=== PATIENT | female | born 1940 | race Hispanic/Latino ===

== ENCOUNTER 2018-10-08 08:45 | Inpatient (IN) | payer OTHER ==
[2018-10-06 11:12] VITALS: BMI 24.9
[2018-10-15] MEDS ORDERED: cefTRIAXone 1 gm 1 GM/100 ML BAG IVPB ONE (07:56)
[2018-10-15] MEDS ORDERED: Lidocaine 2% Jelly (Uro-Jet) ONE (07:57)
[2018-10-15] MEDS ORDERED: Propofol 10 mg/ml Inj (20 ML) ONE (08:29)
--- NOTE | 2018-10-15 08:54 | RAD ---
Date of service: 10/15/2018 HISTORY: cough, preop COMPARISON: 09/07/2018 FINDINGS: LUNGS: No active pulmonary disease. PLEURA: No significant pleural effusion identified, no pneumothorax apparent. CARDIOVASCULAR: No aortic atherosclerotic calcification present. Normal cardiac size. No pulmonary vascular congestion. OSSEOUS STRUCTURES: No significant abnormalities. VISUALIZED UPPER ABDOMEN: Normal. OTHER FINDINGS: None. IMPRESSION: No active disease.
[2018-10-15] MEDS ORDERED: Bupivacaine 0.25% 20 ML INJ IJ ONE (10:09)
[2018-10-15] MEDS ORDERED: Albuterol 0.083% Inhal Sol (2.5 mg/3 mL) UD INH PRN (10:37)
[2018-10-15] MEDS ORDERED: HYDROmorphone 0.5 mg/0.5 ml ISec ONE ×2 (10:40→11:04)
[2018-10-15] MEDS: HYDROmorphone 0.5 mg/0.5 ml ISec IVP PRN ×4 (10:41→11:30)
[2018-10-15] MEDS ORDERED: Lactated Ringer's 1,000 ML IV ONE ×2 (11:00→12:18)
[2018-10-15] MEDS ORDERED: Albuterol 0.083% Inhal Sol (2.5 mg/3 mL) UD ONE (11:06)
--- NOTE | 2018-10-15 11:17 | CP.PCM.CON ---
<Namita Gomez - Last Filed: 10/15/18 13:05> History of Present Illness - History of Present Illness History of Present Illness: ICU Consult Note for Dr. Chew HPI: 78 y/o female with PMHx of AAA, COPD, asthma, aortic stenosis, DM2, and HTN is currently s/p open radical nephrectomy of right kidney by Dr. Chris Nolan POD0 2/2 renal mass. Patient transferred from PACU to ICU for overnight observation due to the severity of her COPD and aortic stenosis. She has been on 6L/h oxygen mask with O2 sat at 98% in PACU. Patient currently on 3L NC O2 in ICU and denies SOB. She does not have or use home oxygen. Patient seen and examined at ICU bedside shortly upon arrival. Patient complains of constant post-surgical pain on her right side and nausea. Patient has not vomited during her hospital stay yet; surgery was just done this morning. Otherwise, she denies headache, chest pain, palpitations, SOB, vomiting, diarrhea, constipation, dysuria, abdominal pain, myalgias, fever, chills. ROS: as stated above PMHx: as stated above. Patient also had a right leg "clot" and had to be on plavix for a short amount of time a few years ago. Off plavix now. PSHx: AAA > 9 years ago, cholecystectomy, hysterectomy FHx: non-contributory SocHx: smoker since 13 years old < 1 ppd, denies EtOH and tobacco use Home meds: albuterol and advair PRN, gabapentin 300 mg daily, pepcid 20 mg PO BID, crestor 10 mg daily, metformin 1 tab daily, tradjenta 5 mg daily, HCTZ/losartan 12.5mg/50mg daily Allergies: NKDA Review of Systems - Constitutional Constitutional: As Per HPI Past Patient History - Past Medical History & Family History Past Medical History?: Yes - Past Social History Smoking Status: Current Some Days Smoker - CARDIAC Hx Cardiac Disorders: Yes Hx Hypercholesterolemia: Yes Hx Hypertension: Yes Hx Peripheral Vascular Disease: Yes Other/Comment: abd aneurysm repair 9 years ago - PULMONARY Hx Respiratory Disorders: Yes Hx Asthma: Yes Hx Bronchitis: Yes Hx Chronic Obstructive Pulmonary Disease (COPD): Yes - NEUROLOGICAL Hx Neurological Disorder: No - HEENT Hx HEENT Problems: Yes Hx Cataracts: Yes - RENAL Hx Chronic Kidney Disease: Yes Other/Comment: RENAL MASS - ENDOCRINE/METABOLIC Hx Endocrine Disorders: Yes Hx Diabetes Mellitus Type 2: Yes - HEMATOLOGICAL/ONCOLOGICAL Hx Blood Disorders: No - INTEGUMENTARY Hx Dermatological Problems: No - MUSCULOSKELETAL/RHEUMATOLOGICAL Hx Musculoskeletal Disorders: Yes Hx Arthritis: Yes - GASTROINTESTINAL Hx Gastrointestinal Disorders: Yes Hx Gall Bladder Disease: Yes - GENITOURINARY/GYNECOLOGICAL Hx Genitourinary Disorders: No - PSYCHIATRIC Hx Psychophysiologic Disorder: No Hx Substance Use: No - SURGICAL HISTORY Hx Surgeries: Yes Hx Abdominal Aortic Aneurysm Repair: Yes Hx Cataract Extraction: Yes Hx Cholecystectomy: Yes Hx Hysterectomy: Yes Other/Comment: abdominal aneurysm >9yrs ago - ANESTHESIA Hx Anesthesia: Yes Hx Anesthesia Reactions: No Hx Malignant Hyperthermia: No Has any member of the family had a problem w/ anesthesia?: No Meds Allergies/Adverse Reactions: Allergies Allergy/AdvReac Type Severity Reaction Status Date / Time No Known Allergies Allergy Verified 10/06/18 11:12 - Medications Medications: Current Medications Albuterol Sulfate (Albuterol 0.083% Inhal Robyn (2.5 Mg/3 Ml) Ud) 2.5 mg INH ONCE PRN PRN Reason: Wheezing Stop: 10/15/18 12:38 Hydromorphone HCl (Dilaudid) 0.5 mg IVP Q5M PRN PRN Reason: Pain, moderate (4-7) Stop: 10/15/18 12:37 Last Admin: 10/15/18 10:50 Dose: 0.5 mg Hydromorphone/Sodium Chloride (Dilaudid Sinker Puller) 6 mg IV Q4H PRN; Protocol PRN Reason: 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 Cefazolin Sodium/Dextrose (Ancef Iv 1 Gm Duplex) 1 gm in 50 mls @ 100 mls/hr IVPB Q8H [facility]; Protocol Ondansetron HCl (Zofran Inj) 4 mg IVP Q8H PRN PRN Reason: Nausea/Vomiting Physical Exam - Constitutional Appears: Well - Head Exam Head Exam: ATRAUMATIC, NORMAL INSPECTION, NORMOCEPHALIC - Eye Exam Eye Exam: EOMI, Normal appearance - Neck Exam Neck exam: Positive for: Normal Inspection - Respiratory Exam Respiratory Exam: Decreased Breath Sounds, NORMAL BREATHING PATTERN - Cardiovascular Exam Cardiovascular Exam: Systolic Murmur (crescendo decrescendo murmur) - GI/Abdominal Exam GI & Abdominal Exam: Normal Bowel Sounds, Soft, Tenderness (tenderness to palp ation at surgical site, with dressing on c/d/i right flank). absent: Distended, Firm, Guarding - Exam Additional comments: hand catheter on - Extremities Exam Extremities exam: Positive for: normal capillary refill, normal inspection. Negative for: calf tenderness, joint swelling, tenderness - Neurological Exam Neurological exam: Alert, Oriented x3 - Psychiatric Exam Psychiatric exam: Normal Affect, Normal Mood - Skin Skin Exam: Dry, Intact, Normal Color, Warm Results - Vital Signs Recent Vital Signs: Last Vital Signs Temp 97.4 F L 10/15/18 10:35 Pulse 85 10/15/18 10:35 Resp 24 10/15/18 10:35 BP 171/65 H 10/15/18 10:35 Pulse Ox 94 L 10/15/18 10:35 - Labs Result Diagrams: 10/15/18 11:32 Labs: Laboratory Results - last 24 hr 10/15/18 08:45 Blood Type A POSITIVE Antibody Screen Negative Assessment & Plan - Assessment and Plan (Free Text) Assessment: 78 y/o female with PMHx of AAA, COPD, asthma, aortic stenosis, DM2, and HTN is currently s/p open radical nephrectomy by Dr. Chris Nolan POD0 2/2 renal mass. Patient currently hemodynamically stable in ICU for overnight observation. Neuro -patient AAOx3 -no acute issues CV -HTN - hold home med HCTZ/losartan 12.5/50 mg for now -continue with home med crestor 10 mg daily -monitor vitals Pulm -COPD/asthma -continue with albuterol PRN -patient on 3L NC with adequate O2 sat and no SOB, monitor -target O2 > 92% -Incentive spirometer GI -continue with home pepcid 20 mg PO BID -no acute issues Renal -s/p open right radical nephrectomy POD0 -ordered stat post-op labs CBC, CMP, Mg, Phos - replete electrolytes if needed -pending ABG ordered by surgical staff -pain control - tylenol, toradol, and morphine all ordered on PRN basis. Latter for severe pain. -antiemetic zofran PRN -labs ordered for tomorrow AM 10/[address] Nolan -follow Dr. Chris Nolan, urology, recs Endo -DM2 -ISS -accuchecks [facility] -hypoglycemic protocol ID -no acute issues Heme -no acute issues DVT ppx: hold as patient is POD0 GI ppx: home med pepcid 20 mg PO BID Diet: Liquid - previously ordered case discussed with Dr. Jeevan Gomez PGY1 <Napoleon Chew - Last Filed: 10/15/18 17:07> Meds - Medications Medications: Current Medications Acetaminophen (Tylenol 325mg Tab) 650 mg PO Q6 PRN PRN Reason: Fever >100.4 F Albuterol/Ipratropium (Duoneb 3 Mg/0.5 Mg (3 Ml) Ud) 3 ml INH RQ4 PRN PRN Reason: Shortness of Breath Dextrose (Glutose 15) 0 gm PO ONCE PRN; Protocol PRN Reason: Hypoglycemia Protocol Dextrose (Dextrose 50% Inj) 0 ml IV STAT PRN; Protocol PRN Reason: Hypoglycemia Protocol Dextrose (Glutose 15) 0 gm PO ONCE PRN; Protocol PRN Reason: Hypoglycemia Protocol Famotidine (Pepcid) 20 mg PO BID [facility] Glucagon (Glucagen Diagnostic Kit) 0 mg IM STAT PRN; Protocol PRN Reason: Hypoglycemia Protocol Glucagon (Glucagen Diagnostic Kit) 0 mg IM STAT PRN; Protocol PRN Reason: Hypoglycemia Protocol Hydromorphone/Sodium Chloride (Dilaudid Sinker Puller) 6 mg IV Q4H PRN; Protocol PRN Reason: 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 Last Admin: 10/15/18 12:35 Dose: 6 mg Cefazolin Sodium/Dextrose (Ancef Iv 1 Gm Duplex) 1 gm in 50 mls @ 100 mls/hr IVPB Q8H [facility]; Protocol Dextrose (Dextrose 5% In Water 1000 Ml) 1,000 mls @ 0 mls/hr IV .Q0M PRN; Protocol PRN Reason: Hypoglycemia Protocol Lactated Ringer's (Lactated Ringer's) 1,000 mls @ 125 mls/hr IV .Q8H ONE Stop: 10/15/18 20:17 Insulin Human Regular (Novolin R) 0 unit SC [facility]; Protocol Stop: 10/17/18 23:59 Last Admin: 10/15/18 16:30 Dose: Not Given Ketorolac Tromethamine (Toradol) 15 mg IVP Q6 PRN PRN Reason: Pain, severe (8-10) Ondansetron HCl (Zofran Inj) 4 mg IVP Q8H PRN PRN Reason: Nausea/Vomiting Last Admin: 10/15/18 12:15 Dose: 4 mg Pneumococcal Polyvalent Vaccine (Pneumovax 23 Vaccine) 0.5 ml IM .ONCE ONE Stop: 10/17/18 10:01 Rosuvastatin Calcium (Crestor) 10 mg PO HS [facility] Results - Vital Signs Recent Vital Signs: Last Vital Signs Temp 97.5 F L 10/15/18 11:45 Pulse 86 10/15/18 11:30 Resp 18 10/15/18 15:27 BP 172/56 H 10/15/18 11:30 Pulse Ox 92 L 10/15/18 15:27 - Labs Result Diagrams: 10/15/18 11:32 10/15/18 13:48 Labs: Laboratory Results - last 24 hr 10/15/18 10/15/18 10/15/18 08:45 09:10 11:32 WBC 12.3 H RBC 3.79 L Hgb 11.6 Hct 34.6 MCV 91.2 MCH 30.6 MCHC 33.6 RDW 13.5 Plt Count 200 MPV 9.0 Neut % (Auto) 75.0 Lymph % (Auto) 17.7 L [place] % (Auto) 5.4 Eos % (Auto) 1.1 Baso % (Auto) 0.8 Neut # (Auto) 9.2 H Lymph # (Auto) 2.2 [place] # (Auto) 0.7 Eos # (Auto) 0.1 Baso # (Auto) 0.1 pCO2 45 pO2 446 H HCO3 24.1 ABG pH 7.35 ABG Total CO2 26.2 ABG O2 Saturation 100.2 H ABG Base Excess -1.1 Sodium Potassium Chloride Carbon Dioxide Anion Gap BUN Creatinine Est GFR ( Amer) Est GFR (Non-Af Amer) POC Glucose (mg/dL) Random Glucose Calcium Phosphorus Magnesium Total Bilirubin AST ALT Alkaline Phosphatase Total Protein Albumin Globulin Albumin/Globulin Ratio Blood Type A POSITIVE Antibody Screen Negative 10/15/18 10/15/18 10/15/18 13:18 13:48 16:10 WBC RBC Hgb Hct MCV MCH MCHC RDW Plt Count MPV Neut % (Auto) Lymph % (Auto) [place] % (Auto) Eos % (Auto) Baso % (Auto) Neut # (Auto) Lymph # (Auto) [place] # (Auto) Eos # (Auto) Baso # (Auto) pCO2 pO2 HCO3 ABG pH ABG Total CO2 ABG O2 Saturation ABG Base Excess Sodium 135 Potassium 3.4 L Chloride 103 Carbon Dioxide 26 Anion Gap 9 L BUN 20 H Creatinine 0.6 L Est GFR ( Amer) > 60 Est GFR (Non-Af Amer) > 60 POC Glucose (mg/dL) 199 H 150 H Random Glucose 196 H Calcium 7.8 L Phosphorus 4.0 Magnesium 1.6 Total Bilirubin 0.5 AST 20 ALT 26 Alkaline Phosphatase 66 Total Protein 5.9 L Albumin 3.3 L Globulin 2.6 Albumin/Globulin Ratio 1.2 Blood Type Antibody Screen Attending/Attestation - Attestation I have personally seen and examined this patient.: Yes I have fully participated in the care of the patient.: Yes I have reviewed all pertinent clinical information: Yes Notes (Text): 10/15/18 17:06 patient seen and examined 78 y/o female with PMHx of AAA, COPD, asthma, aortic stenosis, DM2, and HTN is currently s/p open radical nephrectomy for renal mass. Patient currently hemodynamically stable in ICU for overnight observation Analgesics Monitor CBC
[2018-10-15] MEDS ORDERED: (Novolin R) Insulin Human Regular 100 units/ml vial IVP ONE (11:29)
[2018-10-15] MEDS ORDERED: Glucagon Recombinant 1 mg Inj IM PRN ×2 (11:30→11:54)
[2018-10-15] MEDS ORDERED: Dextrose 50% SYRINGE Inj (50 ml) IV PRN ×2 (11:30→11:54)
[2018-10-15 11:37] LABS: BASO # 0.1 K/uL (0.0-0.2); BASO % 0.8 % (0.0-2.0); EOS # 0.1 K/uL (0.0-0.7); EOS % 1.1 % (0.0-4.0); HEMOGLOBIN 11.6 g/dL (11.0-16.0); LYMPH # 2.2 K/uL (1.0-4.3); LYMPH % 17.7 % (20.0-40.0); MEAN CELL VOLUME 91.2 fL (81.0-99.0); MEAN CORPUSCULAR HEMOGLOBIN 30.6 pg (27.0-31.0); MEAN CORPUSCULAR HGB CONC 33.6 g/dL (33.0-37.0); MONO # 0.7 K/uL (0.0-0.8); MONO % 5.4 % (0.0-10.0); NEUT # 9.2 K/uL (1.8-7.0); RBC 3.79 Mil/uL (3.80-5.20); RED CELL DISTRIBUTION WIDTH 13.5 % (11.5-14.5); WHITE BLOOD COUNT 12.3 K/uL (4.8-10.8)
[2018-10-15] MEDS ORDERED: Morphine 4 MG/ML VIAL IV PRN (12:19)
[2018-10-15 14:06] LABS: ALB/GLOB RATIO 1.2 (1.0-2.1); ALBUMIN 3.3 g/dL (3.5-5.0); ALT/SGPT 26 U/L (9-52); AST/SGOT 20 U/L (14-36); BLOOD UREA NITROGEN 20 mg/dL (7-17); CALCIUM 7.8 mg/dl (8.6-10.4); GFR NON-AFRICAN AMERICAN > 60
[2018-10-15 14:55] LABS: ARTERIAL BLOOD GAS HCO3 24.1 mmol/L (21-28); ARTERIAL BLOOD GAS O2 SAT 100.2 % (95-98); ARTERIAL BLOOD GAS PCO2 45 mm/Hg (35-45); ARTERIAL BLOOD GAS PH 7.35 (7.35-7.45); ARTERIAL BLOOD GAS PO2 446 mm/Hg (80-100); ARTERIAL BLOOD GAS TCO2 26.2 mmol/L (22-28)
[2018-10-15] MEDS ORDERED: ceFAZolin IV 1 gm in Dextrose 1 GM/50 ML BAG IVPB SCH (16:00)
[2018-10-15] MEDS: (Novolin R) Insulin Human Regular 100 units/ml vial SC SCH ×2 (16:30→22:00)
[2018-10-15] MEDS: ceFAZolin IV 1 gm in Dextrose 1 GM/50 ML BAG IVPB SCH (18:16)
[2018-10-15] MEDS: Lactated Ringer's 1,000 ML IV SCH (20:36)
--- NOTE | 2018-10-15 22:07 | CP.PCM.CON ---
History of Present Illness - History of Present Illness History of Present Illness: Postoperative consult HPI: 78-year-old female with a history of COPD, abdominal aortic aneurysm, aortic stenosis, diabetes and hypertension admitted to the intensive care unit following right total nephrectomy secondary to renal tumor. Patient was transferred to the ICU for close observation. Currently patient is on 5 L of nasal cannula, saturation is 90%, also receiving [employer]UM[employer] TE[employer]ER for pain management. Patient is complaining of not able to sleep well, right-sided flank pain noted. Somewhat distressed at night. No cough noted. No chest pain. Past medical history: As noted above Patient in the past had right leg arterial blood clot, currently on Plavix also. Surgical history included AAA repair 9 years ago Cholecystectomy, hysterectomy Family history: Noncontributory Social history: Patient is a smoker since the age of 13, still continues to smoke. Denies any alcohol. Home medications Patient using nebulizer in the house Gabapentin, Pepcid, Crestor, metformin, Tradjenta, losartan hydrochlorothiazide Allergies no known drug allergy Review of system: Patient is postoperative complaining of pain in the right flank region. Also complaining of weakness. Guevara catheter noted. No cough noted. Pain causing her some distress. Oxygen saturation is 90% On examination: Vital signs noted. Chest good air entry Regular [place] Postoperative abdomen. Drainage on the right side of the flank region noted. Extremities no pedal edema Patient labs reviewed Nonspecific. Chest x-ray showing evidence of left old healed fracture. Assessment and recommendation: 78-year-old female with a history of COPD, abdominal aortic aneurysm repair, and his aortic stenosis, diabetes and hypertension and a chronic smoker. Admitted with postoperative right nephrectomy for secondary to renal mass. We will closely monitor patient. Bronchodilators. Incentive spirometer. DVT GI prophylaxis. And will follow the patient Past Patient History - Past Medical History & Family History Past Medical History?: Yes - Past Social History Smoking Status: Current Some Days Smoker - CARDIAC Hx Cardiac Disorders: Yes Hx Hypercholesterolemia: Yes Hx Hypertension: Yes Hx Peripheral Vascular Disease: Yes Other/Comment: abd aneurysm repair 9 years ago - PULMONARY Hx Respiratory Disorders: Yes Hx Asthma: Yes Hx Bronchitis: Yes Hx Chronic Obstructive Pulmonary Disease (COPD): Yes - NEUROLOGICAL Hx Neurological Disorder: No - HEENT Hx HEENT Problems: Yes Hx Cataracts: Yes - RENAL Hx Chronic Kidney Disease: Yes Other/Comment: RENAL MASS - ENDOCRINE/METABOLIC Hx Endocrine Disorders: Yes Hx Diabetes Mellitus Type 2: Yes - HEMATOLOGICAL/ONCOLOGICAL Hx Blood Disorders: No - INTEGUMENTARY Hx Dermatological Problems: No - MUSCULOSKELETAL/RHEUMATOLOGICAL Hx Falls: Yes Hx Fractures: Yes - GASTROINTESTINAL Hx Gastrointestinal Disorders: Yes Hx Gall Bladder Disease: Yes - GENITOURINARY/GYNECOLOGICAL Hx Genitourinary Disorders: No - PSYCHIATRIC Hx Substance Use: No - SURGICAL HISTORY Hx Surgeries: Yes Hx Abdominal Aortic Aneurysm Repair: Yes Hx Cataract Extraction: Yes Hx Cholecystectomy: Yes Hx Hysterectomy: Yes Other/Comment: abdominal aneurysm >9yrs ago - ANESTHESIA Hx Anesthesia: Yes Hx Anesthesia Reactions: No Hx Malignant Hyperthermia: No Has any member of the family had a problem w/ anesthesia?: No Meds Allergies/Adverse Reactions: Allergies Allergy/AdvReac Type Severity Reaction Status Date / Time No Known Allergies Allergy Verified 10/06/18 11:12 - Medications Medications: Current Medications Acetaminophen (Tylenol 325mg Tab) 650 mg PO Q6 PRN PRN Reason: Fever >100.4 F Albuterol/Ipratropium (Duoneb 3 Mg/0.5 Mg (3 Ml) Ud) 3 ml INH RQ4 PRN PRN Reason: Shortness of Breath Dextrose (Glutose 15) 0 gm PO ONCE PRN; Protocol PRN Reason: Hypoglycemia Protocol Dextrose (Dextrose 50% Inj) 0 ml IV STAT PRN; Protocol PRN Reason: Hypoglycemia Protocol Dextrose (Glutose 15) 0 gm PO ONCE PRN; Protocol PRN Reason: Hypoglycemia Protocol Famotidine (Pepcid) 20 mg PO BID [facility] Last Admin: 10/15/18 18:16 Dose: 20 mg Glucagon (Glucagen Diagnostic Kit) 0 mg IM STAT PRN; Protocol PRN Reason: Hypoglycemia Protocol Glucagon (Glucagen Diagnostic Kit) 0 mg IM STAT PRN; Protocol PRN Reason: Hypoglycemia Protocol Hydromorphone/Sodium Chloride (Dilaudid Med Asst) 6 mg IV Q4H PRN; Protocol 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 Last Admin: 10/15/18 12:35 Dose: 6 mg Dextrose (Dextrose 5% In Water 1000 Ml) 1,000 mls @ 0 mls/hr IV .Q0M PRN; Protocol PRN Reason: Hypoglycemia Protocol Cefazolin Sodium/Dextrose (Ancef Iv 1 Gm Duplex) 1 gm in 50 mls @ 100 mls/hr IVPB Q8H [facility]; Protocol Last Admin: 10/15/18 18:16 Dose: 100 mls/hr Lactated Ringer's (Lactated Ringer's) 1,000 mls @ 100 mls/hr IV .Q10H [facility] Last Admin: 10/15/18 20:36 Dose: 100 mls/hr Insulin Human Regular (Novolin R) 0 unit SC ACHS [facility]; Protocol Stop: 10/17/18 23:59 Last Admin: 10/15/18 16:30 Dose: Not Given Ketorolac Tromethamine (Toradol) 15 mg IVP Q6 PRN PRN Reason: Pain, severe (8-10) Ondansetron HCl (Zofran Inj) 4 mg IVP Q8H PRN PRN Reason: Nausea/Vomiting Last Admin: 10/15/18 12:15 Dose: 4 mg Pneumococcal Polyvalent Vaccine (Pneumovax 23 Vaccine) 0.5 ml IM .ONCE ONE Stop: 10/17/18 10:01 Rosuvastatin Calcium (Crestor) 10 mg PO HS [facility] Last Admin: 10/15/18 21:59 Dose: 10 mg Results - Vital Signs Recent Vital Signs: Last Vital Signs Temp 99.3 F 10/15/18 20:00 Pulse 104 H 10/15/18 21:20 Resp 17 10/15/18 21:20 BP 132/64 10/15/18 21:20 Pulse Ox 86 L 10/15/18 21:20 - Labs Result Diagrams: 10/15/18 11:32 10/15/18 13:48 Labs: Laboratory Results - last 24 hr 10/15/18 10/15/18 10/15/18 08:45 09:10 11:32 WBC 12.3 H RBC 3.79 L Hgb 11.6 Hct 34.6 MCV 91.2 MCH 30.6 MCHC 33.6 RDW 13.5 Plt Count 200 MPV 9.0 Neut % (Auto) 75.0 Lymph % (Auto) 17.7 L [place] % (Auto) 5.4 Eos % (Auto) 1.1 Baso % (Auto) 0.8 Neut # (Auto) 9.2 H Lymph # (Auto) 2.2 [place] # (Auto) 0.7 Eos # (Auto) 0.1 Baso # (Auto) 0.1 pCO2 45 pO2 446 H HCO3 24.1 ABG pH 7.35 ABG Total CO2 26.2 ABG O2 Saturation 100.2 H ABG Base Excess -1.1 Sodium Potassium Chloride Carbon Dioxide Anion Gap BUN Creatinine Est GFR ( Amer) Est GFR (Non-Af Amer) POC Glucose (mg/dL) Random Glucose Calcium Phosphorus Magnesium Total Bilirubin AST ALT Alkaline Phosphatase Total Protein Albumin Globulin Albumin/Globulin Ratio Blood Type A POSITIVE Antibody Screen Negative 10/15/18 10/15/18 10/15/18 13:18 13:48 16:10 WBC RBC Hgb Hct MCV MCH MCHC RDW Plt Count MPV Neut % (Auto) Lymph % (Auto) [place] % (Auto) Eos % (Auto) Baso % (Auto) Neut # (Auto) Lymph # (Auto) [place] # (Auto) Eos # (Auto) Baso # (Auto) pCO2 pO2 HCO3 ABG pH ABG Total CO2 ABG O2 Saturation ABG Base Excess Sodium 135 Potassium 3.4 L Chloride 103 Carbon Dioxide 26 Anion Gap 9 L BUN 20 H Creatinine 0.6 L Est GFR ( Amer) > 60 Est GFR (Non-Af Amer) > 60 POC Glucose (mg/dL) 199 H 150 H Random Glucose 196 H Calcium 7.8 L Phosphorus 4.0 Magnesium 1.6 Total Bilirubin 0.5 AST 20 ALT 26 Alkaline Phosphatase 66 Total Protein 5.9 L Albumin 3.3 L Globulin 2.6 Albumin/Globulin Ratio 1.2 Blood Type Antibody Screen 10/15/18 21:16 WBC RBC Hgb Hct MCV MCH MCHC RDW Plt Count MPV Neut % (Auto) Lymph % (Auto) [place] % (Auto) Eos % (Auto) Baso % (Auto) Neut # (Auto) Lymph # (Auto) [place] # (Auto) Eos # (Auto) Baso # (Auto) pCO2 pO2 HCO3 ABG pH ABG Total CO2 ABG O2 Saturation ABG Base Excess Sodium Potassium Chloride Carbon Dioxide Anion Gap BUN Creatinine Est GFR ( Amer) Est GFR (Non-Af Amer) POC Glucose (mg/dL) 187 H Random Glucose Calcium Phosphorus Magnesium Total Bilirubin AST ALT Alkaline Phosphatase Total Protein Albumin Globulin Albumin/Globulin Ratio Blood Type Antibody Screen
[2018-10-16] MEDS: ceFAZolin IV 1 gm in Dextrose 1 GM/50 ML BAG IVPB SCH ×3 (02:26→17:30)
[2018-10-16] MEDS: Lactated Ringer's 1,000 ML IV SCH ×3 (06:06→14:45)
[2018-10-16 06:17] LABS: BASO # 0.1 K/uL (0.0-0.2); BASO % 0.5 % (0.0-2.0); EOS % 0.4 % (0.0-4.0); HEMOGLOBIN 11.3 g/dL (11.0-16.0); LYMPH # 1.2 K/uL (1.0-4.3); LYMPH % 11.1 % (20.0-40.0); MEAN CELL VOLUME 91.1 fL (81.0-99.0); MEAN CORPUSCULAR HEMOGLOBIN 30.4 pg (27.0-31.0); MEAN CORPUSCULAR HGB CONC 33.4 g/dL (33.0-37.0); MEAN PLATELET VOLUME 9.9 fL (7.2-11.7); MONO # 0.9 K/uL (0.0-0.8); MONO % 8.4 % (0.0-10.0); NEUT # 8.9 K/uL (1.8-7.0); NEUT % 79.6 % (50.0-75.0); RBC 3.71 Mil/uL (3.80-5.20); RED CELL DISTRIBUTION WIDTH 13.8 % (11.5-14.5); WHITE BLOOD COUNT 11.2 K/uL (4.8-10.8)
[2018-10-16 06:44] LABS: ALB/GLOB RATIO 1.2 (1.0-2.1); ALBUMIN 3.4 g/dL (3.5-5.0); ALT/SGPT 19 U/L (9-52); AST/SGOT 33 U/L (14-36); BLOOD UREA NITROGEN 15 mg/dL (7-17); CALCIUM 7.9 mg/dl (8.6-10.4); GFR NON-AFRICAN AMERICAN > 60
--- NOTE | 2018-10-16 07:29 | OP ---
PROCEDURE DATE: 10/15/2018 UROLOGY OPERATIVE NOTE PREOPERATIVE DIAGNOSES: Right renal mass, solid renal mass, 3 x 3 cm, enhancing renal mass, suspicious renal cell carcinoma, hematuria, bronchitis, hypertension, diabetes, peripheral vascular disease, coronary artery disease, and a strong smoking history. POSTOPERATIVE DIAGNOSES: Right renal mass, solid renal mass, 3 x 3 cm, enhancing renal mass, suspicious renal cell carcinoma, hematuria, bronchitis, hypertension, diabetes, peripheral vascular disease, coronary artery disease, and a strong smoking history. PROCEDURE: Insertion of a Guevara catheter and an open nephrectomy. COMPLICATIONS: There were no complications. BLOOD LOSS: Less than 100 mL, perhaps even less than 50 mL . SURGEON: Carroll Nolan MD TYPE DISK QUALITY CONTROL SUPERVISOR SURGEON: Roseann Nolan MD, board certified urologist. (I needed a second resident programs assistant given the nature of the lesion, given the nature of her medical history, given the nature of the open procedure that we had done today. Both are the assistants of a board certified urologist). SPECIMEN SENT DOWN: Kidney. DRAIN: Two Gianfranco drains in the flank. consistent with close monitoring. See the body of the report. I drained Guevara catheter via the urethra. There were no complications. I do want to mention the findings. We can see a renal mass. We inspected and we took a little fat off the kidney. At the end, I went over and took some pictures, I could see the renal mass. No abnormalities, otherwise, detected. FINDINGS: 1. Renal mass. 2. I just want to mention that the lungs are grossly intact. At the termination of the procedure, we overinflated the lungs. See the body of the report. I do not see any air bubble. INDICATIONS: See history and physical for further details, but in brief, this is a very pleasant 78-year-old lady with a renal mass, 3 x 3 cm. We discussed and actually recommended robotic surgery for various reasons including travel reason. They are not wanting to travel elsewhere. Also for various conservative reasons, the patient preferred not to have anybody else to perform the procedure. She also preferred to have me as the surgeon. I discussed the risks, benefits, and treatment alternatives with the patient at great length. After doing discussions, the patient was actually preferring to come to me. After discussing at length about the various options, she came out to the above procedure. We had entertained partial. We had entertained robotic. We had entertained a lot of different options, that has been discussed with the patient . I do want to mention one of the things that the patient recently had a cough, and she was treated by a private doctor. We . Today, we did a repeat chest x-ray prior to the procedure. The old chest x-ray was compared. The radiologist had a chance to look at it. After discussing the options, we came to the operating room. (See below) but plan will be aggressive pulmonary toilet. DESCRIPTION OF PROCEDURE: The patient was brought into the OR, placed on the table. Routine monitors were placed. A time-out was called to confirm the patient. Antibiotic prophylaxis was used. I inserted a Guevara catheter via the urethra. Clear merna urine in about less than 100 mL. We now continued the procedure. We now placed the patient in a flank position with the right flank up. I do want to mention that we had done all our skin markings before, and I also spent time reviewing the CAT scan again yesterday in preparation for today. I have also I reviewed my notes in preparation for today's open nephrectomy. So, I reacquainted myself with the procedure, anatomy, etc. I also studied the patient's anatomy. We turned out on the CAT scan. It looks like it is too watery which we identified in the procedure itself. All the films have been reviewed. Because of the complicated nature of the procedure, I arranged to have a second surgeon there to assist me. I have a board certified urologist, Dr. Roseann Nolan. I reviewed this, spent some time in reviewing the films with him prior to beginning today's procedure in terms of approaching all surgical approach. We positioned the patient together and placed the patient with the right flank up. We secured with an axillary roll. We protected the bottom. We flexed the lower extremity and left the other leg unstretched. We put over the leg in the table. Once we did this, we secured it in place with tape. Gently carefully protecting the head, made sure vital signs were all within normal limits. We recalled time-out. We prepped the patient with ChloraPrep under sterile technique. We now identified the markings with skin markings at the iliac crest and the twelfth rib. We approached it to a twelfth rib approach. We carried our incision down through the subcutaneous fat and then through the underlying fascia. We identified layer by layer, the external oblique, the internal oblique. We tried to identify the nerves. We went through the transversalis fascia to the transverse layer. We now the peritoneal cavity anteriorly actually fairly easily and able to keep away from it. We went away posteriorly. We took the twelfth rib and sent this off as a specimen as well. We now dissected off the kidney, mostly we approached posteriorly. After we went posteriorly, we went off the psoas muscle without difficulty. We dissected posteriorly off the psoas muscle. We now turned our attention towards inferiorly and superiorly. Just blunt and sharp dissection carefully and gently. We were working away to free up the kidney and working away towards the pedicle . Once we were making it free, I could feel now the pedicle. I could feel the arterial pulse. Then, we gently carefully dissected it. We had a very good exposure with retracted, and we help from the side without assistance. We were able to identify and isolate out the pedicle. Once we identified out the pedicle, actually as I mentioned previously, I can identify two arteries. I dissected the vein. I put a silk around it but did not tie it down yet, we took off the two arteries. Once we took off the two arteries, we tied them down. We used actually 0 silk and suture ligature a total of four on the patient's same side for both arteries. We did a suture ligature with an 0 silk. The procedure then continues. We did both arteries in a similar fashion. Now, we had the vein secured. We dissected the artery out further. We tied up with a silk. At this point, we are complete and secured. We had the remainder of the kidney completely free. Stayed that of the ureter, we identified the ureter. We put a silk tie on the patient's side, and we put clips on the . At this point, we irrigated the wounds copiously to make sure that there is no bleeding. We now turned our attention towards the lung, we overinflate to make sure that there is no leaking. We now began our closure. We closed in layers using Macron and Vicryl. We secured the wound. We had good hemostasis. What we do now is we inject Marcaine to the skin levels. We applied subcutaneous rather and we applied peggy. The patient overall tolerated the procedure without complication. We applied dry sterile dressing. I want to mention that the table was put back in its anatomic position. The patient was now flipped back into . Sterile dressing was applied. The patient was put back in supine position, brought to recovery room in stable condition, having tolerated the procedure without complication. Carroll Nolan MD
--- NOTE | 2018-10-16 07:30 | HP ---
REASON FOR ADMISSION: Right radical nephrectomy. HISTORY OF PRESENT ILLNESS: The patient is a very pleasant woman with multiple medical problems. She has peripheral vascular disease. She has coronary artery disease. She had an aortic stenosis. She has had aneurysm repair. She has had multiple surgical procedures. She currently has a hernia in her incisional site. She has diabetes and a history of hypertension as well. She was having abdominal pain and discomfort. During that workup, they found a right renal mass, about 3 cm x 3 cm mass. When she presented today, we discussed options. See the plan listed below. My recommendation is that we offer a robotic nephrectomy, either partial or complete, that was my first recommendation. I then discussed other options with the patient. She was not interested in going to any other surgeon or traveling. We discussed the idea. She asked me to call a few other urologists. Apparently, there were insurance issues for the patient, so we discussed the option when she was here today for nephrectomy. In preparation for today's procedure, I tried to see her medical doctor, Dr. Carrillo and also tried to see her java architect given her underlying conditions and we decided to stop her Plavix. She is not sure why she is on Plavix, but she is on Plavix, but she stopped it now for about a week or two weeks. As part of this workup, she has also undergone medical and cardiac workup. There are no concerns on the chart, again she is still at risk. she is currently still actively smoking. She "is trying to stop." We discussed it at length. See my office note as well. The patient is now here today for an open right nephrectomy after having discussed all the options with the patient. PAST MEDICAL AND SURGICAL HISTORY: As listed in medical clearance on the chart. MEDICATIONS: As listed. ALLERGIES: NO ALLERGIES. SOCIAL HISTORY: She is here with her sister. Apparently, she has children. here with sister who came to the office with her on several occasions. As part of workup, the patient had a cystoscopy as she had hematuria. We did not find any bladder lesions. That was an uncomplicated cystoscopy that she tolerated well. REVIEW OF SYSTEMS: No weight loss, chest pain, shortness of breath . Essentially negative review of systems. No constitutional complaints. PHYSICAL EXAMINATION GENERAL: A well-nourished female, in no apparent distress. VITAL SIGNS: Within normal limit and included in the chart. LUNGS: Clear. HEART: Normal S1 and S2. ABDOMEN: Overall soft, not grossly distended. Incision noted. GENITALIA: Pelvic exam is deferred for now, but as I mentioned previously, the pelvic exam is within normal limits. No pelvic or rectal masses noted. DIAGNOSES: 1. Right renal mass. 2. Hematuria. ASSESSMENT AND PLAN: In summary, a very pleasant 78-year-old lady with a few medical problems; diabetes, hypertension, vascular disease of peripheral vascular, coronary artery and vascular disease, currently actively smoking with a [id number] history with currently no major complaints. recently treated for bronchitis and is currently on ampicillin or amoxicillin. In preparation today, we repeated a new chest x-ray and compared with an old chest x-ray. The radiologist had a chance to look at it. We discussed the idea of delaying the surgery. I also discussed with the patient at great length the possibility for an open nephrectomy versus robotic. I discussed radical nephrectomy, complete nephrectomy and virtually the possibility for partial nephrectomy. I discussed all the risks, benefits and treatment at length. After discussing all these risks, benefits and treatment alternatives, the decision will be that we are going to proceed with open nephrectomy through a flank incision. Further plans will follow depending on the finding. So the plan is as follows: 1. Antibiotics. 2. Plan for a flank nephrectomy. See the operative note. Risks, benefits and treatment alternatives have been discussed at length. We are going to plan to proceed. During the hospital stay, we are going to have a medical doctor to see the patient as well. Further plans will follow. Carroll Nolan MD
[2018-10-16] MEDS: (Novolin R) Insulin Human Regular 100 units/ml vial SC SCH ×4 (08:07→22:00)
[2018-10-16] MEDS: Albuterol-Ipratrop 3 mg / 0.5 (3 ml) UD INH PRN ×2 (08:32→20:12)
[2018-10-16 09:00] LABS: ARTERIAL BLOOD GAS HCO3 23.1 mmol/L (21-28); ARTERIAL BLOOD GAS O2 SAT 93.6 % (95-98); ARTERIAL BLOOD GAS PCO2 40 mm/Hg (35-45); ARTERIAL BLOOD GAS PH 7.37 (7.35-7.45); ARTERIAL BLOOD GAS PO2 57 mm/Hg (80-100); ARTERIAL BLOOD GAS TCO2 24.3 mmol/L (22-28)
--- NOTE | 2018-10-16 12:35 | CP.CCUPN ---
<Namita Gomez - Last Filed: 10/16/18 14:40> CCU Subjective - Physician Review Subjective (Free Text): 10/16/18 12:57 ICU Progress Note for Dr. Su Patient seen and examined at bedside this morning. Patient still with nausea and surgical pain like yesterday. Today POD1, 10/16. Patient denies fever, chills, sweats, headaches, abdominal pain, diarrhea. Still on QUILTING MACHINE HELPER pump dilaudid for pain control. Patient still on clear liquid diet, poor PO intake per RN. Just spoke to Dr. Daniel Nolan. He will see and evaluate patient this afternoon in the ICU. 10/16/18 14:40 CCU Objective - Vital Signs / Intake & Output Vital Signs (Last 4 hours): Vital Signs Pulse BP 10/16/18 09:25 129/50 L 10/16/18 08:35 98 H Intake and Output (Last 8hrs): Intake & Output 10/15/18 10/16/18 10/16/18 22:59 06:59 14:59 Intake Total 1095 1300 420 Output Total 450 380 150 Balance 645 920 270 Weight 161 lb 4 oz Intake: Intake, IV Amount 825 850 300 Right Forearm 825 850 300 Oral 270 450 120 Output: Urine 450 380 150 Urethral (Hand) 450 380 150 Other: Voiding Method Indwelling Catheter # Bowel Movements 0 0 - Physical Exam Head: Positive for: Atraumatic, Normocephalic Pupils: Positive for: PERRL Extroacular Muscles: Positive for: EOMI Conjunctiva: Positive for: Normal Respiratory/Chest: Positive for: Decreased Breath Sounds Cardiovascular: Positive for: Murmurs (crescendo decrescendo murmur) Abdomen: Positive for: Tenderness (right flank surgical site). Negative for: Distention, Peritoneal Signs Upper Extremity: Positive for: Normal Inspection, NORMAL PULSES, Capillary Refill < 2s Lower Extremity: Positive for: Normal Inspection. Negative for: Edema, CALF TENDERNESS Skin: Positive for: Warm, Dry, Normal Color Psychiatric: Positive for: Alert, Oriented x 3 - Medications Active Medications: Active Medications Generic Name Dose Route Start Last Admin Trade Name Freq PRN Reason Stop Dose Admin Acetaminophen 650 mg 10/15/18 11:28 Tylenol 325mg Tab PO Q6 PRN Fever >100.4 F Albuterol/Ipratropium 3 ml 10/15/18 16:00 10/16/18 08:32 Duoneb 3 Mg/0.5 Mg (3 Ml) Ud INH 3 ml RQ4 PRN Administration Shortness of Breath Dextrose 0 gm 10/15/18 11:30 Glutose 15 PO ONCE PRN Hypoglycemia Protocol Protocol Dextrose 0 ml 10/15/18 11:54 Dextrose 50% Inj IV STAT PRN Hypoglycemia Protocol Protocol Dextrose 0 gm 10/15/18 11:54 Glutose 15 PO ONCE PRN Hypoglycemia Protocol Protocol Famotidine 20 mg 10/15/18 18:00 10/16/18 09:30 Pepcid PO Not Given BID RENETTA Famotidine 20 mg 10/16/18 11:30 10/16/18 11:52 Pepcid IVP 20 mg DAILY RENETTA Administration Fluticasone/Vilanterol 1 puff 10/16/18 08:00 Breo Ellipta 100-25 Mcg Inh INH RQD RENETTA Glucagon 0 mg 10/15/18 11:30 Glucagen Diagnostic Kit IM STAT PRN Hypoglycemia Protocol Protocol Glucagon 0 mg 10/15/18 11:54 Glucagen Diagnostic Kit IM STAT PRN Hypoglycemia Protocol Protocol Hydromorphone/Sodium Chloride 6 mg 10/15/18 10:38 10/15/18 12:35 Dilaudid Receipt And Report Clerk IV 6 mg Q4H PRN Administration QUILTING MACHINE HELPER PROTOCOL Protocol Dextrose 1,000 mls @ 0 mls/hr 10/15/18 11:30 Dextrose 5% In Water 1000 Ml IV .Q0M PRN Hypoglycemia Protocol Protocol Per Protocol Cefazolin Sodium/Dextrose 1 gm in 50 mls @ 100 mls/hr 10/15/18 18:00 10/16/18 09:26 Ancef Iv 1 Gm Duplex IVPB 100 mls/hr Q8H RENETTA Administration Protocol Lactated Ringer's 1,000 mls @ 100 mls/hr 10/15/18 18:45 10/16/18 09:27 Lactated Ringer's IV 100 mls/hr .Q10H RENETTA Administration Insulin Human Regular 0 unit 10/15/18 16:30 10/16/18 11:53 Novolin R SC 10/17/18 23:59 2 u ACHS RENETTA Administration Protocol Ketorolac Tromethamine 15 mg 10/15/18 20:30 Toradol IVP Q6 PRN Pain, severe (8-10) Ondansetron HCl 4 mg 10/15/18 10:34 10/16/18 09:26 Zofran Inj IVP 4 mg Q8H PRN Administration Nausea/Vomiting Pneumococcal Polyvalent Vaccine 0.5 ml 10/17/18 10:00 Pneumovax 23 Vaccine IM 10/17/18 10:01 .ONCE ONE Rosuvastatin Calcium 10 mg 10/15/18 22:00 10/15/18 21:59 Crestor PO 10 mg HS RENETTA Administration - Patient Studies Lab Studies: Microbiology Studies 10/15/18 13:48 MRSA Culture (Admit) - Final Nose MRSA NOT DETECTED Lab Studies 10/16/18 10/16/18 10/16/18 Range/Units 08:56 07:16 06:02 WBC 11.2 H (4.8-10.8) K/uL RBC 3.71 L (3.80-5.20) Mil/uL Hgb 11.3 (11.0-16.0) g/dL Hct 33.8 L (34.0-47.0) % MCV 91.1 (81.0-99.0) fL MCH 30.4 (27.0-31.0) pg MCHC 33.4 (33.0-37.0) g/dL RDW 13.8 (11.5-14.5) % Plt Count 219 (130-400) K/uL MPV 9.9 (7.2-11.7) fL Neut % (Auto) 79.6 H (50.0-75.0) % Lymph % (Auto) 11.1 L (20.0-40.0) % Clare % (Auto) 8.4 (0.0-10.0) % Eos % (Auto) 0.4 (0.0-4.0) % Baso % (Auto) 0.5 (0.0-2.0) % Neut # (Auto) 8.9 H (1.8-7.0) K/uL Lymph # (Auto) 1.2 (1.0-4.3) K/uL Clare # (Auto) 0.9 H (0.0-0.8) K/uL Eos # (Auto) 0.0 (0.0-0.7) K/uL Baso # (Auto) 0.1 (0.0-0.2) K/uL Puncture Site A line pCO2 40 (35-45) mm/Hg pO2 57 L (80-100) mm/Hg HCO3 23.1 (21-28) mmol/L ABG pH 7.37 (7.35-7.45) ABG Total CO2 24.3 (22-28) mmol/L ABG O2 Saturation 93.6 L (95-98) % ABG Base Excess -2.0 (-2.0-3.0) mmol/L Sai Test Na ABG Potassium 3.3 L (3.6-5.2) mmol/L A-a O2 Difference 143.0 mm/Hg Respiratory Index 2.5 Glucose 187 H (65-105) mg/dl Lactate 1.1 (0.7-2.1) mmol/L Liter Flow 3.0 FiO2 35.0 % Sodium 135.0 (132-148) mmol/L Potassium (3.6-5.2) mmol/L Chloride 105.0 (98-107) mmol/L Carbon Dioxide (22-30) mmol/L Anion Gap (10-20) BUN (7-17) mg/dL Creatinine (0.7-1.2) mg/dL Est GFR ( Amer) Est GFR (Non-Af Amer) POC Glucose (mg/dL) 196 H (65-110) mg/dL Random Glucose (65-105) mg/dL Calcium (8.6-10.4) mg/dl Phosphorus (2.5-4.5) mg/dL Magnesium (1.6-2.3) mg/dL Total Bilirubin (0.2-1.3) mg/dL AST (14-36) U/L ALT (9-52) U/L Alkaline Phosphatase (38-126) U/L Total Protein (6.3-8.3) g/dL Albumin (3.5-5.0) g/dL Globulin (2.2-3.9) gm/dL Albumin/Globulin Ratio (1.0-2.1) Arterial Blood Potassium 3.3 L (3.6-5.2) mmol/L 10/16/18 10/15/18 10/15/18 Range/Units 06:02 21:16 16:10 WBC (4.8-10.8) K/uL RBC (3.80-5.20) Mil/uL Hgb (11.0-16.0) g/dL Hct (34.0-47.0) % MCV (81.0-99.0) fL MCH (27.0-31.0) pg MCHC (33.0-37.0) g/dL RDW (11.5-14.5) % Plt Count (130-400) K/uL MPV (7.2-11.7) fL Neut % (Auto) (50.0-75.0) % Lymph % (Auto) (20.0-40.0) % Clare % (Auto) (0.0-10.0) % Eos % (Auto) (0.0-4.0) % Baso % (Auto) (0.0-2.0) % Neut # (Auto) (1.8-7.0) K/uL Lymph # (Auto) (1.0-4.3) K/uL Clare # (Auto) (0.0-0.8) K/uL Eos # (Auto) (0.0-0.7) K/uL Baso # (Auto) (0.0-0.2) K/uL Puncture Site pCO2 (35-45) mm/Hg pO2 (80-100) mm/Hg HCO3 (21-28) mmol/L ABG pH (7.35-7.45) ABG Total CO2 (22-28) mmol/L ABG O2 Saturation (95-98) % ABG Base Excess (-2.0-3.0) mmol/L Sai Test ABG Potassium (3.6-5.2) mmol/L A-a O2 Difference mm/Hg Respiratory Index Glucose (65-105) mg/dl Lactate (0.7-2.1) mmol/L Liter Flow FiO2 % Sodium 131 L (132-148) mmol/L Potassium 4.0 (3.6-5.2) mmol/L Chloride 98 (98-107) mmol/L Carbon Dioxide 24 (22-30) mmol/L Anion Gap 13 (10-20) BUN 15 (7-17) mg/dL Creatinine 0.7 (0.7-1.2) mg/dL Est GFR ( Amer) > 60 Est GFR (Non-Af Amer) > 60 POC Glucose (mg/dL) 187 H 150 H (65-110) mg/dL Random Glucose 172 H (65-105) mg/dL Calcium 7.9 L (8.6-10.4) mg/dl Phosphorus 3.2 (2.5-4.5) mg/dL Magnesium 1.6 (1.6-2.3) mg/dL Total Bilirubin 0.6 (0.2-1.3) mg/dL AST 33 (14-36) U/L ALT 19 (9-52) U/L Alkaline Phosphatase 62 (38-126) U/L Total Protein 6.2 L (6.3-8.3) g/dL Albumin 3.4 L (3.5-5.0) g/dL Globulin 2.8 (2.2-3.9) gm/dL Albumin/Globulin Ratio 1.2 (1.0-2.1) Arterial Blood Potassium (3.6-5.2) mmol/L 10/15/18 10/15/18 10/15/18 Range/Units 13:48 13:18 11:06 WBC (4.8-10.8) K/uL RBC (3.80-5.20) Mil/uL Hgb (11.0-16.0) g/dL Hct (34.0-47.0) % MCV (81.0-99.0) fL MCH (27.0-31.0) pg MCHC (33.0-37.0) g/dL RDW (11.5-14.5) % Plt Count (130-400) K/uL MPV (7.2-11.7) fL Neut % (Auto) (50.0-75.0) % Lymph % (Auto) (20.0-40.0) % Clare % (Auto) (0.0-10.0) % Eos % (Auto) (0.0-4.0) % Baso % (Auto) (0.0-2.0) % Neut # (Auto) (1.8-7.0) K/uL Lymph # (Auto) (1.0-4.3) K/uL Clare # (Auto) (0.0-0.8) K/uL Eos # (Auto) (0.0-0.7) K/uL Baso # (Auto) (0.0-0.2) K/uL Puncture Site pCO2 (35-45) mm/Hg pO2 (80-100) mm/Hg HCO3 (21-28) mmol/L ABG pH (7.35-7.45) ABG Total CO2 (22-28) mmol/L ABG O2 Saturation (95-98) % ABG Base Excess (-2.0-3.0) mmol/L Sai Test ABG Potassium (3.6-5.2) mmol/L A-a O2 Difference mm/Hg Respiratory Index Glucose (65-105) mg/dl Lactate (0.7-2.1) mmol/L Liter Flow FiO2 % Sodium 135 (132-148) mmol/L Potassium 3.4 L (3.6-5.2) mmol/L Chloride 103 (98-107) mmol/L Carbon Dioxide 26 (22-30) mmol/L Anion Gap 9 L (10-20) BUN 20 H (7-17) mg/dL Creatinine 0.6 L (0.7-1.2) mg/dL Est GFR ( Amer) > 60 Est GFR (Non-Af Amer) > 60 POC Glucose (mg/dL) 199 H 348 H (65-110) mg/dL Random Glucose 196 H (65-105) mg/dL Calcium 7.8 L (8.6-10.4) mg/dl Phosphorus 4.0 (2.5-4.5) mg/dL Magnesium 1.6 (1.6-2.3) mg/dL Total Bilirubin 0.5 (0.2-1.3) mg/dL AST 20 (14-36) U/L ALT 26 (9-52) U/L Alkaline Phosphatase 66 (38-126) U/L Total Protein 5.9 L (6.3-8.3) g/dL Albumin 3.3 L (3.5-5.0) g/dL Globulin 2.6 (2.2-3.9) gm/dL Albumin/Globulin Ratio 1.2 (1.0-2.1) Arterial Blood Potassium (3.6-5.2) mmol/L 10/15/18 10/15/18 Range/Units 09:10 07:03 WBC (4.8-10.8) K/uL RBC (3.80-5.20) Mil/uL Hgb (11.0-16.0) g/dL Hct (34.0-47.0) % MCV (81.0-99.0) fL MCH (27.0-31.0) pg MCHC (33.0-37.0) g/dL RDW (11.5-14.5) % Plt Count (130-400) K/uL MPV (7.2-11.7) fL Neut % (Auto) (50.0-75.0) % Lymph % (Auto) (20.0-40.0) % Clare % (Auto) (0.0-10.0) % Eos % (Auto) (0.0-4.0) % Baso % (Auto) (0.0-2.0) % Neut # (Auto) (1.8-7.0) K/uL Lymph # (Auto) (1.0-4.3) K/uL Clare # (Auto) (0.0-0.8) K/uL Eos # (Auto) (0.0-0.7) K/uL Baso # (Auto) (0.0-0.2) K/uL Puncture Site pCO2 45 (35-45) mm/Hg pO2 446 H (80-100) mm/Hg HCO3 24.1 (21-28) mmol/L ABG pH 7.35 (7.35-7.45) ABG Total CO2 26.2 (22-28) mmol/L ABG O2 Saturation 100.2 H (95-98) % ABG Base Excess -1.1 (-2.0-3.0) mmol/L Sai Test ABG Potassium (3.6-5.2) mmol/L A-a O2 Difference mm/Hg Respiratory Index Glucose (65-105) mg/dl Lactate (0.7-2.1) mmol/L Liter Flow FiO2 % Sodium (132-148) mmol/L Potassium (3.6-5.2) mmol/L Chloride (98-107) mmol/L Carbon Dioxide (22-30) mmol/L Anion Gap (10-20) BUN (7-17) mg/dL Creatinine (0.7-1.2) mg/dL Est GFR ( Amer) Est GFR (Non-Af Amer) POC Glucose (mg/dL) 158 H (65-110) mg/dL Random Glucose (65-105) mg/dL Calcium (8.6-10.4) mg/dl Phosphorus (2.5-4.5) mg/dL Magnesium (1.6-2.3) mg/dL Total Bilirubin (0.2-1.3) mg/dL AST (14-36) U/L ALT (9-52) U/L Alkaline Phosphatase (38-126) U/L Total Protein (6.3-8.3) g/dL Albumin (3.5-5.0) g/dL Globulin (2.2-3.9) gm/dL Albumin/Globulin Ratio (1.0-2.1) Arterial Blood Potassium (3.6-5.2) mmol/L Laboratory Results - last 24 hr 10/15/18 10/15/18 10/15/18 07:03 09:10 11:06 WBC RBC Hgb Hct MCV MCH MCHC RDW Plt Count MPV Neut % (Auto) Lymph % (Auto) Clare % (Auto) Eos % (Auto) Baso % (Auto) Neut # (Auto) Lymph # (Auto) Clare # (Auto) Eos # (Auto) Baso # (Auto) Puncture Site pCO2 45 pO2 446 H HCO3 24.1 ABG pH 7.35 ABG Total CO2 26.2 ABG O2 Saturation 100.2 H ABG Base Excess -1.1 Sai Test ABG Potassium A-a O2 Difference Respiratory Index Glucose Lactate Liter Flow FiO2 Sodium Potassium Chloride Carbon Dioxide Anion Gap BUN Creatinine Est GFR ( Amer) Est GFR (Non-Af Amer) POC Glucose (mg/dL) 158 H 348 H Random Glucose Calcium Phosphorus Magnesium Total Bilirubin AST ALT Alkaline Phosphatase Total Protein Albumin Globulin Albumin/Globulin Ratio Arterial Blood Potassium 10/15/18 10/15/18 10/15/18 13:18 13:48 16:10 WBC RBC Hgb Hct MCV MCH MCHC RDW Plt Count MPV Neut % (Auto) Lymph % (Auto) Clare % (Auto) Eos % (Auto) Baso % (Auto) Neut # (Auto) Lymph # (Auto) Clare # (Auto) Eos # (Auto) Baso # (Auto) Puncture Site pCO2 pO2 HCO3 ABG pH ABG Total CO2 ABG O2 Saturation ABG Base Excess Sai Test ABG Potassium A-a O2 Difference Respiratory Index Glucose Lactate Liter Flow FiO2 Sodium 135 Potassium 3.4 L Chloride 103 Carbon Dioxide 26 Anion Gap 9 L BUN 20 H Creatinine 0.6 L Est GFR ( Amer) > 60 Est GFR (Non-Af Amer) > 60 POC Glucose (mg/dL) 199 H 150 H Random Glucose 196 H Calcium 7.8 L Phosphorus 4.0 Magnesium 1.6 Total Bilirubin 0.5 AST 20 ALT 26 Alkaline Phosphatase 66 Total Protein 5.9 L Albumin 3.3 L Globulin 2.6 Albumin/Globulin Ratio 1.2 Arterial Blood Potassium 10/15/18 10/16/18 10/16/18 21:16 06:02 06:02 WBC 11.2 H RBC 3.71 L Hgb 11.3 Hct 33.8 L MCV 91.1 MCH 30.4 MCHC 33.4 RDW 13.8 Plt Count 219 MPV 9.9 Neut % (Auto) 79.6 H Lymph % (Auto) 11.1 L Clare % (Auto) 8.4 Eos % (Auto) 0.4 Baso % (Auto) 0.5 Neut # (Auto) 8.9 H Lymph # (Auto) 1.2 Clare # (Auto) 0.9 H Eos # (Auto) 0.0 Baso # (Auto) 0.1 Puncture Site pCO2 pO2 HCO3 ABG pH ABG Total CO2 ABG O2 Saturation ABG Base Excess Sai Test ABG Potassium A-a O2 Difference Respiratory Index Glucose Lactate Liter Flow FiO2 Sodium 131 L Potassium 4.0 Chloride 98 Carbon Dioxide 24 Anion Gap 13 BUN 15 Creatinine 0.7 Est GFR ( Amer) > 60 Est GFR (Non-Af Amer) > 60 POC Glucose (mg/dL) 187 H Random Glucose 172 H Calcium 7.9 L Phosphorus 3.2 Magnesium 1.6 Total Bilirubin 0.6 AST 33 ALT 19 Alkaline Phosphatase 62 Total Protein 6.2 L Albumin 3.4 L Globulin 2.8 Albumin/Globulin Ratio 1.2 Arterial Blood Potassium 10/16/18 10/16/18 07:16 08:56 WBC RBC Hgb Hct MCV MCH MCHC RDW Plt Count MPV Neut % (Auto) Lymph % (Auto) Clare % (Auto) Eos % (Auto) Baso % (Auto) Neut # (Auto) Lymph # (Auto) Clare # (Auto) Eos # (Auto) Baso # (Auto) Puncture Site A line pCO2 40 pO2 57 L HCO3 23.1 ABG pH 7.37 ABG Total CO2 24.3 ABG O2 Saturation 93.6 L ABG Base Excess -2.0 Sai Test Na ABG Potassium 3.3 L A-a O2 Difference 143.0 Respiratory Index 2.5 Glucose 187 H Lactate 1.1 Liter Flow 3.0 FiO2 35.0 Sodium 135.0 Potassium Chloride 105.0 Carbon Dioxide Anion Gap BUN Creatinine Est GFR ( Amer) Est GFR (Non-Af Amer) POC Glucose (mg/dL) 196 H Random Glucose Calcium Phosphorus Magnesium Total Bilirubin AST ALT Alkaline Phosphatase Total Protein Albumin Globulin Albumin/Globulin Ratio Arterial Blood Potassium 3.3 L Fingerstick Blood Sugar Results: 223 Critical Care Progress Note - Nutrition Nutrition: Nutrition Category Date Time Status Liquid Diet [DIET] Diets 10/15/18 Lunch Active Assessment/Plan - Assessment and Plan (Free Text) Assessment: 78 y/o female with PMHx of AAA, COPD, asthma, aortic stenosis, DM2, and HTN is currently s/p open radical nephrectomy by Dr. Chris Nolan POD1 2/2 renal mass. Patient currently in ICU overnight after surgery for observation. Neuro -patient AAOx3 -no acute issues CV -HTN - hold home med HCTZ/losartan 12.5/50 mg for now -continue with home med crestor 10 mg daily -monitor vitals Pulm -COPD/asthma -continue with albuterol PRN -patient on 3L NC with adequate O2 sat after surgery but overnight O2 sat decreased to 80s. Patient put on ventimask now and RT on board. FiO2 set at 50%, monitor -target O2 > 92% -continue with daily ABG in light of patient's respiratory status -Incentive spirometer, chest PT, encourage ambulation/OOB to chair GI -home pepcid 20 mg PO BID switched to IV due to nausea -continue with zofran PRN, added reglan as patient was having symptoms before patient due for another zofran dose -continue with liquid diet; patient with nausea/poor PO intake Renal -s/p open right radical nephrectomy POD1. EBL < 100 mL. -continue with routine CBC, CMP, Mg, Phos - replete electrolytes if needed -pain control - anesthesia ordered QUILTING MACHINE HELPER pump dilaudid. Tylenol and toradol PRN on board. -antiemetic zofran PRN, added reglan -spoke to Dr. Daniel Nolan for recs, urology: --d/c ancef this 6pm (24h post op) --leave on hand one more night, remove 10/17 Endo -DM2 -ISS -accuchecks ACHS -hypoglycemic protocol ID -no acute issues Heme -no acute issues DVT ppx: on hold due to risk of post-op bleeding GI ppx: pepcid 20 mg IV daily Diet: Liquid case discussed with Dr. Sharlene Gomez PGY1 <Hong Su M - Last Filed: 10/16/18 19:17> CCU Objective - Vital Signs / Intake & Output Vital Signs (Last 4 hours): Vital Signs Temp Pulse Resp BP BP Pulse Ox 10/16/18 18:20 96 H 16 130/51 L 92 L 10/16/18 17:30 129/47 L 10/16/18 17:20 96 H 19 130/53 L 10/16/18 16:20 102 H 21 135/46 L 10/16/18 16:00 99.7 F H 110 H 27 H 88 L 10/16/18 15:30 108 H 24 93 L 10/16/18 15:20 101 H 22 137/47 L 93 L Intake and Output (Last 8hrs): Intake & Output 10/16/18 10/16/18 10/16/18 06:59 14:59 22:59 Intake Total 1300 1500 740 Output Total 380 350 150 Balance 920 1150 590 Weight 161 lb 4 oz Intake: Intake, IV Amount 850 900 500 Right Forearm 850 900 500 Oral 450 600 240 Output: Urine 380 350 150 Urethral (Hand) 380 350 150 Other: # Bowel Movements 0 - Medications Active Medications: Active Medications Generic Name Dose Route Start Last Admin Trade Name Freq PRN Reason Stop Dose Admin Acetaminophen 650 mg 10/15/18 11:28 Tylenol 325mg Tab PO Q6 PRN Fever >100.4 F Albuterol/Ipratropium 3 ml 10/15/18 16:00 10/16/18 08:32 Duoneb 3 Mg/0.5 Mg (3 Ml) Ud INH 3 ml RQ4 PRN Administration Shortness of Breath Dextrose 0 gm 10/15/18 11:30 Glutose 15 PO ONCE PRN Hypoglycemia Protocol Protocol Dextrose 0 ml 10/15/18 11:54 Dextrose 50% Inj IV STAT PRN Hypoglycemia Protocol Protocol Dextrose 0 gm 10/15/18 11:54 Glutose 15 PO ONCE PRN Hypoglycemia Protocol Protocol Famotidine 20 mg 10/15/18 18:00 10/16/18 09:30 Pepcid PO Not Given BID RENETTA Famotidine 20 mg 10/16/18 11:30 10/16/18 11:52 Pepcid IVP 20 mg DAILY RENETTA Administration Fluticasone/Vilanterol 1 puff 10/16/18 08:00 10/16/18 13:17 Breo Ellipta 100-25 Mcg Inh INH 1 puff RQD RENETTA Administration Glucagon 0 mg 10/15/18 11:30 Glucagen Diagnostic Kit IM STAT PRN Hypoglycemia Protocol Protocol Glucagon 0 mg 10/15/18 11:54 Glucagen Diagnostic Kit IM STAT PRN Hypoglycemia Protocol Protocol Hydromorphone/Sodium Chloride 6 mg 10/15/18 10:38 10/15/18 12:35 Dilaudid Receipt And Report Clerk IV 6 mg Q4H PRN Administration QUILTING MACHINE HELPER PROTOCOL Protocol Dextrose 1,000 mls @ 0 mls/hr 10/15/18 11:30 Dextrose 5% In Water 1000 Ml IV .Q0M PRN Hypoglycemia Protocol Protocol Per Protocol Lactated Ringer's 1,000 mls @ 100 mls/hr 10/15/18 18:45 10/16/18 14:45 Lactated Ringer's IV Not Given .Q10H RENETTA Insulin Human Regular 0 unit 10/15/18 16:30 10/16/18 16:31 Novolin R SC 10/17/18 23:59 2 u ACHS RENETTA Administration Protocol Ketorolac Tromethamine 15 mg 10/15/18 20:30 Toradol IVP Q6 PRN Pain, severe (8-10) Ondansetron HCl 4 mg 10/15/18 10:34 10/16/18 09:26 Zofran Inj IVP 4 mg Q8H PRN Administration Nausea/Vomiting Pneumococcal Polyvalent Vaccine 0.5 ml 10/17/18 10:00 Pneumovax 23 Vaccine IM 10/17/18 10:01 .ONCE ONE Rosuvastatin Calcium 10 mg 10/15/18 22:00 10/15/18 21:59 Crestor PO 10 mg HS RENETTA Administration - Patient Studies Lab Studies: Microbiology Studies 10/15/18 13:48 MRSA Culture (Admit) - Final Nose MRSA NOT DETECTED Lab Studies 10/16/18 10/16/18 10/16/18 Range/Units 16:11 11:18 08:56 WBC (4.8-10.8) K/uL RBC (3.80-5.20) Mil/uL Hgb (11.0-16.0) g/dL Hct (34.0-47.0) % MCV (81.0-99.0) fL MCH (27.0-31.0) pg MCHC (33.0-37.0) g/dL RDW (11.5-14.5) % Plt Count (130-400) K/uL MPV (7.2-11.7) fL Neut % (Auto) (50.0-75.0) % Lymph % (Auto) (20.0-40.0) % Clare % (Auto) (0.0-10.0) % Eos % (Auto) (0.0-4.0) % Baso % (Auto) (0.0-2.0) % Neut # (Auto) (1.8-7.0) K/uL Lymph # (Auto) (1.0-4.3) K/uL Clare # (Auto) (0.0-0.8) K/uL Eos # (Auto) (0.0-0.7) K/uL Baso # (Auto) (0.0-0.2) K/uL Puncture Site A line pCO2 40 (35-45) mm/Hg pO2 57 L (80-100) mm/Hg HCO3 23.1 (21-28) mmol/L ABG pH 7.37 (7.35-7.45) ABG Total CO2 24.3 (22-28) mmol/L ABG O2 Saturation 93.6 L (95-98) % ABG Base Excess -2.0 (-2.0-3.0) mmol/L Sai Test Na ABG Potassium 3.3 L (3.6-5.2) mmol/L A-a O2 Difference 143.0 mm/Hg Respiratory Index 2.5 Glucose 187 H (65-105) mg/dl Lactate 1.1 (0.7-2.1) mmol/L Liter Flow 3.0 FiO2 35.0 % Sodium 135.0 (132-148) mmol/L Potassium (3.6-5.2) mmol/L Chloride 105.0 (98-107) mmol/L Carbon Dioxide (22-30) mmol/L Anion Gap (10-20) BUN (7-17) mg/dL Creatinine (0.7-1.2) mg/dL Est GFR ( Amer) Est GFR (Non-Af Amer) POC Glucose (mg/dL) 203 H 223 H (65-110) mg/dL Random Glucose (65-105) mg/dL Calcium (8.6-10.4) mg/dl Phosphorus (2.5-4.5) mg/dL Magnesium (1.6-2.3) mg/dL Total Bilirubin (0.2-1.3) mg/dL AST (14-36) U/L ALT (9-52) U/L Alkaline Phosphatase (38-126) U/L Total Protein (6.3-8.3) g/dL Albumin (3.5-5.0) g/dL Globulin (2.2-3.9) gm/dL Albumin/Globulin Ratio (1.0-2.1) Arterial Blood Potassium 3.3 L (3.6-5.2) mmol/L 10/16/18 10/16/18 10/16/18 Range/Units 07:16 06:02 06:02 WBC 11.2 H (4.8-10.8) K/uL RBC 3.71 L (3.80-5.20) Mil/uL Hgb 11.3 (11.0-16.0) g/dL Hct 33.8 L (34.0-47.0) % MCV 91.1 (81.0-99.0) fL MCH 30.4 (27.0-31.0) pg MCHC 33.4 (33.0-37.0) g/dL RDW 13.8 (11.5-14.5) % Plt Count 219 (130-400) K/uL MPV 9.9 (7.2-11.7) fL Neut % (Auto) 79.6 H (50.0-75.0) % Lymph % (Auto) 11.1 L (20.0-40.0) % Clare % (Auto) 8.4 (0.0-10.0) % Eos % (Auto) 0.4 (0.0-4.0) % Baso % (Auto) 0.5 (0.0-2.0) % Neut # (Auto) 8.9 H (1.8-7.0) K/uL Lymph # (Auto) 1.2 (1.0-4.3) K/uL Clare # (Auto) 0.9 H (0.0-0.8) K/uL Eos # (Auto) 0.0 (0.0-0.7) K/uL Baso # (Auto) 0.1 (0.0-0.2) K/uL Puncture Site pCO2 (35-45) mm/Hg pO2 (80-100) mm/Hg HCO3 (21-28) mmol/L ABG pH (7.35-7.45) ABG Total CO2 (22-28) mmol/L ABG O2 Saturation (95-98) % ABG Base Excess (-2.0-3.0) mmol/L Sai Test ABG Potassium (3.6-5.2) mmol/L A-a O2 Difference mm/Hg Respiratory Index Glucose (65-105) mg/dl Lactate (0.7-2.1) mmol/L Liter Flow FiO2 % Sodium 131 L (132-148) mmol/L Potassium 4.0 (3.6-5.2) mmol/L Chloride 98 (98-107) mmol/L Carbon Dioxide 24 (22-30) mmol/L Anion Gap 13 (10-20) BUN 15 (7-17) mg/dL Creatinine 0.7 (0.7-1.2) mg/dL Est GFR ( Amer) > 60 Est GFR (Non-Af Amer) > 60 POC Glucose (mg/dL) 196 H (65-110) mg/dL Random Glucose 172 H (65-105) mg/dL Calcium 7.9 L (8.6-10.4) mg/dl Phosphorus 3.2 (2.5-4.5) mg/dL Magnesium 1.6 (1.6-2.3) mg/dL Total Bilirubin 0.6 (0.2-1.3) mg/dL AST 33 (14-36) U/L ALT 19 (9-52) U/L Alkaline Phosphatase 62 (38-126) U/L Total Protein 6.2 L (6.3-8.3) g/dL Albumin 3.4 L (3.5-5.0) g/dL Globulin 2.8 (2.2-3.9) gm/dL Albumin/Globulin Ratio 1.2 (1.0-2.1) Arterial Blood Potassium (3.6-5.2) mmol/L 10/15/18 10/15/18 10/15/18 Range/Units 21:16 11:06 07:03 WBC (4.8-10.8) K/uL RBC (3.80-5.20) Mil/uL Hgb (11.0-16.0) g/dL Hct (34.0-47.0) % MCV (81.0-99.0) fL MCH (27.0-31.0) pg MCHC (33.0-37.0) g/dL RDW (11.5-14.5) % Plt Count (130-400) K/uL MPV (7.2-11.7) fL Neut % (Auto) (50.0-75.0) % Lymph % (Auto) (20.0-40.0) % Clare % (Auto) (0.0-10.0) % Eos % (Auto) (0.0-4.0) % Baso % (Auto) (0.0-2.0) % Neut # (Auto) (1.8-7.0) K/uL Lymph # (Auto) (1.0-4.3) K/uL Clare # (Auto) (0.0-0.8) K/uL Eos # (Auto) (0.0-0.7) K/uL Baso # (Auto) (0.0-0.2) K/uL Puncture Site pCO2 (35-45) mm/Hg pO2 (80-100) mm/Hg HCO3 (21-28) mmol/L ABG pH (7.35-7.45) ABG Total CO2 (22-28) mmol/L ABG O2 Saturation (95-98) % ABG Base Excess (-2.0-3.0) mmol/L Sai Test ABG Potassium (3.6-5.2) mmol/L A-a O2 Difference mm/Hg Respiratory Index Glucose (65-105) mg/dl Lactate (0.7-2.1) mmol/L Liter Flow FiO2 % Sodium (132-148) mmol/L Potassium (3.6-5.2) mmol/L Chloride (98-107) mmol/L Carbon Dioxide (22-30) mmol/L Anion Gap (10-20) BUN (7-17) mg/dL Creatinine (0.7-1.2) mg/dL Est GFR ( Amer) Est GFR (Non-Af Amer) POC Glucose (mg/dL) 187 H 348 H 158 H (65-110) mg/dL Random Glucose (65-105) mg/dL Calcium (8.6-10.4) mg/dl Phosphorus (2.5-4.5) mg/dL Magnesium (1.6-2.3) mg/dL Total Bilirubin (0.2-1.3) mg/dL AST (14-36) U/L ALT (9-52) U/L Alkaline Phosphatase (38-126) U/L Total Protein (6.3-8.3) g/dL Albumin (3.5-5.0) g/dL Globulin (2.2-3.9) gm/dL Albumin/Globulin Ratio (1.0-2.1) Arterial Blood Potassium (3.6-5.2) mmol/L Laboratory Results - last 24 hr 10/15/18 10/15/18 10/15/18 07:03 11:06 21:16 WBC RBC Hgb Hct MCV MCH MCHC RDW Plt Count MPV Neut % (Auto) Lymph % (Auto) Clare % (Auto) Eos % (Auto) Baso % (Auto) Neut # (Auto) Lymph # (Auto) Clare # (Auto) Eos # (Auto) Baso # (Auto) Puncture Site pCO2 pO2 HCO3 ABG pH ABG Total CO2 ABG O2 Saturation ABG Base Excess Sai Test ABG Potassium A-a O2 Difference Respiratory Index Glucose Lactate Liter Flow FiO2 Sodium Potassium Chloride Carbon Dioxide Anion Gap BUN Creatinine Est GFR ( Amer) Est GFR (Non-Af Amer) POC Glucose (mg/dL) 158 H 348 H 187 H Random Glucose Calcium Phosphorus Magnesium Total Bilirubin AST ALT Alkaline Phosphatase Total Protein Albumin Globulin Albumin/Globulin Ratio Arterial Blood Potassium 10/16/18 10/16/18 10/16/18 06:02 06:02 07:16 WBC 11.2 H RBC 3.71 L Hgb 11.3 Hct 33.8 L MCV 91.1 MCH 30.4 MCHC 33.4 RDW 13.8 Plt Count 219 MPV 9.9 Neut % (Auto) 79.6 H Lymph % (Auto) 11.1 L Clare % (Auto) 8.4 Eos % (Auto) 0.4 Baso % (Auto) 0.5 Neut # (Auto) 8.9 H Lymph # (Auto) 1.2 Clare # (Auto) 0.9 H Eos # (Auto) 0.0 Baso # (Auto) 0.1 Puncture Site pCO2 pO2 HCO3 ABG pH ABG Total CO2 ABG O2 Saturation ABG Base Excess Sai Test ABG Potassium A-a O2 Difference Respiratory Index Glucose Lactate Liter Flow FiO2 Sodium 131 L Potassium 4.0 Chloride 98 Carbon Dioxide 24 Anion Gap 13 BUN 15 Creatinine 0.7 Est GFR ( Amer) > 60 Est GFR (Non-Af Amer) > 60 POC Glucose (mg/dL) 196 H Random Glucose 172 H Calcium 7.9 L Phosphorus 3.2 Magnesium 1.6 Total Bilirubin 0.6 AST 33 ALT 19 Alkaline Phosphatase 62 Total Protein 6.2 L Albumin 3.4 L Globulin 2.8 Albumin/Globulin Ratio 1.2 Arterial Blood Potassium 10/16/18 10/16/18 10/16/18 08:56 11:18 16:11 WBC RBC Hgb Hct MCV MCH MCHC RDW Plt Count MPV Neut % (Auto) Lymph % (Auto) Clare % (Auto) Eos % (Auto) Baso % (Auto) Neut # (Auto) Lymph # (Auto) Clare # (Auto) Eos # (Auto) Baso # (Auto) Puncture Site A line pCO2 40 pO2 57 L HCO3 23.1 ABG pH 7.37 ABG Total CO2 24.3 ABG O2 Saturation 93.6 L ABG Base Excess -2.0 Sai Test Na ABG Potassium 3.3 L A-a O2 Difference 143.0 Respiratory Index 2.5 Glucose 187 H Lactate 1.1 Liter Flow 3.0 FiO2 35.0 Sodium 135.0 Potassium Chloride 105.0 Carbon Dioxide Anion Gap BUN Creatinine Est GFR ( Amer) Est GFR (Non-Af Amer) POC Glucose (mg/dL) 223 H 203 H Random Glucose Calcium Phosphorus Magnesium Total Bilirubin AST ALT Alkaline Phosphatase Total Protein Albumin Globulin Albumin/Globulin Ratio Arterial Blood Potassium 3.3 L Critical Care Progress Note - Nutrition Nutrition: Nutrition Category Date Time Status Liquid Diet [DIET] Diets 10/15/18 Lunch Active Attending/Attestation - Attestation I have personally seen and examined this patient.: Yes I have fully participated in the care of the patient.: Yes I have reviewed all pertinent clinical information: Yes Notes (Text): 10/16/18 19:17 Today: September The Patient was seen and examined at the bedside, Medical records reviewed, and management issues were discussed and formulated with the house staff. I have reviewed all the relevant clinical, laboratory, hemodynamic, radiographic data and medications Events reviewed Pain issues, skin care, head of the bed elevation, glycemic control were addressed. Agree with above resident's assessment and treatment plans of care as transcribed in Dr. Gomez's note.
[2018-10-16] MEDS: Fluticasone-Vilanterol 100/25mcg Diskus INH SCH (13:17)
[2018-10-16] MEDS ORDERED: Acetaminophen IV 1,000 MG in Premixed IV 1 EA IV ONE (20:53)
[2018-10-17] MEDS: HYDROmorphone 1 mg/ml ISec IVP PRN ×3 (00:54→17:01)
[2018-10-17 05:35] LABS: ARTERIAL BLOOD GAS HCO3 22.2 mmol/L (21-28); ARTERIAL BLOOD GAS PCO2 45 mm/Hg (35-45); ARTERIAL BLOOD GAS PH 7.32 (7.35-7.45); ARTERIAL BLOOD GAS PO2 54 mm/Hg (80-100); ARTERIAL BLOOD GAS TCO2 24.6 mmol/L (22-28)
[2018-10-17] MEDS: Lactated Ringer's 1,000 ML IV SCH ×3 (05:45→10:45)
[2018-10-17 06:23] LABS: BASO % 0.4 % (0.0-2.0); EOS % 0.2 % (0.0-4.0); HEMOGLOBIN 11.2 g/dL (11.0-16.0); LYMPH # 1.4 K/uL (1.0-4.3); LYMPH % 14.1 % (20.0-40.0); MEAN CELL VOLUME 91.9 fL (81.0-99.0); MEAN CORPUSCULAR HEMOGLOBIN 30.5 pg (27.0-31.0); MEAN CORPUSCULAR HGB CONC 33.2 g/dL (33.0-37.0); MEAN PLATELET VOLUME 10.2 fL (7.2-11.7); MONO # 0.9 K/uL (0.0-0.8); MONO % 8.8 % (0.0-10.0); NEUT # 7.6 K/uL (1.8-7.0); NEUT % 76.5 % (50.0-75.0); NRBC % 0.1 % (0.0-2.0); RBC 3.67 Mil/uL (3.80-5.20); RED CELL DISTRIBUTION WIDTH 13.6 % (11.5-14.5); WHITE BLOOD COUNT 9.9 K/uL (4.8-10.8)
[2018-10-17 06:35] LABS: ALB/GLOB RATIO 1.2 (1.0-2.1); ALBUMIN 3.4 g/dL (3.5-5.0); ALT/SGPT 17 U/L (9-52); AST/SGOT 34 U/L (14-36); BLOOD UREA NITROGEN 14 mg/dL (7-17); CALCIUM 8.2 mg/dl (8.6-10.4); GFR NON-AFRICAN AMERICAN > 60
[2018-10-17] MEDS: Albuterol-Ipratrop 3 mg / 0.5 (3 ml) UD INH PRN (07:38)
[2018-10-17] MEDS: Fluticasone-Vilanterol 100/25mcg Diskus INH SCH (07:39)
[2018-10-17] MEDS: (Novolin R) Insulin Human Regular 100 units/ml vial SC SCH ×4 (07:53→22:47)
[2018-10-17] MEDS ORDERED: Pneumococcal 23-Valent Vaccine IM ONE (10:00)
--- NOTE | 2018-10-17 11:05 | CP.CCUPN ---
<Namita Gomez - Last Filed: 10/17/18 11:07> CCU Subjective - Physician Review Subjective (Free Text): 10/16/18 12:57 ICU Progress Note for Dr. Monster Prado Patient seen and examined at bedside this morning. Patient still with surgical pain but has been able to move and ambulate. Patient's nausea has resolved and now she is hungry. Today POD2. Otherwise 12 point ROS negative. Patient is stable to be transferred out of ICU to telemetry. Order placed. 10/16/18 14:40 10/17/18 10:56 10/17/18 10:58 CCU Objective - Vital Signs / Intake & Output Vital Signs (Last 4 hours): Vital Signs Pulse Resp BP Pulse Ox 10/17/18 08:21 112 H 14 157/58 H 94 L 10/17/18 08:00 117 H 27 H 91 L 10/17/18 07:20 111 H 20 144/68 Intake and Output (Last 8hrs): Intake & Output 10/16/18 10/17/18 10/17/18 22:59 06:59 14:59 Intake Total 1140 1150 100 Output Total 150 600 125 Balance 990 550 -25 Weight 161 lb 8 oz Intake: Intake, IV Amount 900 900 100 Right Forearm 900 900 100 Oral 240 250 Output: Urine 150 600 125 Urethral (Hand) 150 600 125 Other: # Bowel Movements 0 - Physical Exam Head: Positive for: Atraumatic, Normocephalic Pupils: Positive for: PERRL Extroacular Muscles: Positive for: EOMI Conjunctiva: Positive for: Normal Respiratory/Chest: Positive for: Decreased Breath Sounds Cardiovascular: Positive for: Murmurs (crescendo decrescendo murmur) Abdomen: Positive for: Tenderness (right flank surgical site). Negative for: Distention, Peritoneal Signs Upper Extremity: Positive for: Normal Inspection, NORMAL PULSES, Capillary Refill < 2s Lower Extremity: Positive for: Normal Inspection. Negative for: Edema, CALF TENDERNESS Skin: Positive for: Warm, Dry, Normal Color Psychiatric: Positive for: Alert, Oriented x 3 - Medications Active Medications: Active Medications Generic Name Dose Route Start Last Admin Trade Name Freq PRN Reason Stop Dose Admin Acetaminophen 650 mg 10/15/18 11:28 Tylenol 325mg Tab PO Q6 PRN Fever >100.4 F Albuterol/Ipratropium 3 ml 10/17/18 10:15 Duoneb 3 Mg/0.5 Mg (3 Ml) Ud INH Q6H RENETTA Dextrose 0 gm 10/15/18 11:30 Glutose 15 PO ONCE PRN Hypoglycemia Protocol Protocol Dextrose 0 ml 10/15/18 11:54 Dextrose 50% Inj IV STAT PRN Hypoglycemia Protocol Protocol Dextrose 0 gm 10/15/18 11:54 Glutose 15 PO ONCE PRN Hypoglycemia Protocol Protocol Famotidine 20 mg 10/15/18 18:00 10/17/18 10:50 Pepcid PO 20 mg BID RENETTA Administration Fluticasone/Vilanterol 1 puff 10/16/18 08:00 10/17/18 07:39 Breo Ellipta 100-25 Mcg Inh INH 1 puff RQD RENETTA Administration Glucagon 0 mg 10/15/18 11:30 Glucagen Diagnostic Kit IM STAT PRN Hypoglycemia Protocol Protocol Glucagon 0 mg 10/15/18 11:54 Glucagen Diagnostic Kit IM STAT PRN Hypoglycemia Protocol Protocol Hydrochlorothiazide 12.5 mg 10/17/18 11:00 Microzide PO DAILY RENETTA Hydromorphone HCl 1 mg 10/16/18 22:19 10/17/18 08:04 Dilaudid IVP 1 mg Q3H PRN Administration Pain, moderate (4-7) Dextrose 1,000 mls @ 0 mls/hr 10/15/18 11:30 Dextrose 5% In Water 1000 Ml IV .Q0M PRN Hypoglycemia Protocol Protocol Per Protocol Lactated Ringer's 1,000 mls @ 100 mls/hr 10/15/18 18:45 10/17/18 08:45 Lactated Ringer's IV 100 mls/hr .Q10H RENETTA Administration Insulin Human Regular 0 unit 10/15/18 16:30 10/17/18 07:53 Novolin R SC 10/17/18 23:59 2 u ACHS RENETTA Administration Protocol Losartan Potassium 50 mg 10/17/18 11:00 10/17/18 10:33 Cozaar PO 50 mg DAILY RENETTA Administration Ondansetron HCl 4 mg 10/15/18 10:34 10/16/18 21:20 Zofran Inj IVP 4 mg Q8H PRN Administration Nausea/Vomiting Rosuvastatin Calcium 10 mg 10/15/18 22:00 12/27/18 21:21 Crestor PO 10 mg HS RENETTA Administration - Patient Studies Lab Studies: Microbiology Studies 10/15/18 13:48 MRSA Culture (Admit) - Final Nose MRSA NOT DETECTED Lab Studies 10/17/18 10/17/18 10/17/18 Range/Units 07:37 06:10 06:10 WBC 9.9 (4.8-10.8) K/uL RBC 3.67 L (3.80-5.20) Mil/uL Hgb 11.2 (11.0-16.0) g/dL Hct 33.8 L (34.0-47.0) % MCV 91.9 (81.0-99.0) fL MCH 30.5 (27.0-31.0) pg MCHC 33.2 (33.0-37.0) g/dL RDW 13.6 (11.5-14.5) % Plt Count 198 (130-400) K/uL MPV 10.2 (7.2-11.7) fL Neut % (Auto) 76.5 H (50.0-75.0) % Lymph % (Auto) 14.1 L (20.0-40.0) % [place] % (Auto) 8.8 (0.0-10.0) % Eos % (Auto) 0.2 (0.0-4.0) % Baso % (Auto) 0.4 (0.0-2.0) % Neut # (Auto) 7.6 H (1.8-7.0) K/uL Lymph # (Auto) 1.4 (1.0-4.3) K/uL [place] # (Auto) 0.9 H (0.0-0.8) K/uL Eos # (Auto) 0.0 (0.0-0.7) K/uL Baso # (Auto) 0.0 (0.0-0.2) K/uL Puncture Site pCO2 (35-45) mm/Hg pO2 (80-100) mm/Hg HCO3 (21-28) mmol/L ABG pH (7.35-7.45) ABG Total CO2 (22-28) mmol/L ABG O2 Saturation (95-98) % ABG Base Excess (-2.0-3.0) mmol/L Sai Test ABG Potassium (3.6-5.2) mmol/L Sodium 132 (132-148) mmol/l Chloride 99 (98-107) mmol/L Glucose (65-105) mg/dl Lactate (0.7-2.1) mmol/L Liter Flow Potassium 3.7 (3.6-5.2) mmol/L Carbon Dioxide 23 (22-30) mmol/L Anion Gap 14 (10-20) BUN 14 (7-17) mg/dL Creatinine 0.7 (0.7-1.2) mg/dL Est GFR ( Amer) > 60 Est GFR (Non-Af Amer) > 60 POC Glucose (mg/dL) 218 H (65-110) mg/dL Random Glucose 179 H (65-105) mg/dL Calcium 8.2 L (8.6-10.4) mg/dl Phosphorus 2.6 (2.5-4.5) mg/dL Magnesium 1.8 (1.6-2.3) mg/dL Total Bilirubin 0.7 (0.2-1.3) mg/dL AST 34 (14-36) U/L ALT 17 (9-52) U/L Alkaline Phosphatase 72 (38-126) U/L Total Protein 6.1 L (6.3-8.3) g/dL Albumin 3.4 L (3.5-5.0) g/dL Globulin 2.7 (2.2-3.9) gm/dL Albumin/Globulin Ratio 1.2 (1.0-2.1) Arterial Blood Potassium (3.6-5.2) mmol/L 10/17/18 10/16/18 10/16/18 Range/Units 05:14 20:53 16:11 WBC (4.8-10.8) K/uL RBC (3.80-5.20) Mil/uL Hgb (11.0-16.0) g/dL Hct (34.0-47.0) % MCV (81.0-99.0) fL MCH (27.0-31.0) pg MCHC (33.0-37.0) g/dL RDW (11.5-14.5) % Plt Count (130-400) K/uL MPV (7.2-11.7) fL Neut % (Auto) (50.0-75.0) % Lymph % (Auto) (20.0-40.0) % [place] % (Auto) (0.0-10.0) % Eos % (Auto) (0.0-4.0) % Baso % (Auto) (0.0-2.0) % Neut # (Auto) (1.8-7.0) K/uL Lymph # (Auto) (1.0-4.3) K/uL [place] # (Auto) (0.0-0.8) K/uL Eos # (Auto) (0.0-0.7) K/uL Baso # (Auto) (0.0-0.2) K/uL Puncture Site [place] pCO2 45 (35-45) mm/Hg pO2 54 L (80-100) mm/Hg HCO3 22.2 (21-28) mmol/L ABG pH 7.32 L (7.35-7.45) ABG Total CO2 24.6 (22-28) mmol/L ABG O2 Saturation 90.0 L (95-98) % ABG Base Excess -3.1 L (-2.0-3.0) mmol/L Sai Test Na ABG Potassium 3.7 (3.6-5.2) mmol/L Sodium 135.0 (132-148) mmol/l Chloride 101.0 (98-107) mmol/L Glucose 185 H (65-105) mg/dl Lactate 2.4 H (0.7-2.1) mmol/L Liter Flow 4.0 Potassium (3.6-5.2) mmol/L Carbon Dioxide (22-30) mmol/L Anion Gap (10-20) BUN (7-17) mg/dL Creatinine (0.7-1.2) mg/dL Est GFR ( Amer) Est GFR (Non-Af Amer) POC Glucose (mg/dL) 246 H 203 H (65-110) mg/dL Random Glucose (65-105) mg/dL Calcium (8.6-10.4) mg/dl Phosphorus (2.5-4.5) mg/dL Magnesium (1.6-2.3) mg/dL Total Bilirubin (0.2-1.3) mg/dL AST (14-36) U/L ALT (9-52) U/L Alkaline Phosphatase (38-126) U/L Total Protein (6.3-8.3) g/dL Albumin (3.5-5.0) g/dL Globulin (2.2-3.9) gm/dL Albumin/Globulin Ratio (1.0-2.1) Arterial Blood Potassium 3.7 (3.6-5.2) mmol/L 10/16/18 10/16/18 Range/Units 11:18 07:16 WBC (4.8-10.8) K/uL RBC (3.80-5.20) Mil/uL Hgb (11.0-16.0) g/dL Hct (34.0-47.0) % MCV (81.0-99.0) fL MCH (27.0-31.0) pg MCHC (33.0-37.0) g/dL RDW (11.5-14.5) % Plt Count (130-400) K/uL MPV (7.2-11.7) fL Neut % (Auto) (50.0-75.0) % Lymph % (Auto) (20.0-40.0) % [place] % (Auto) (0.0-10.0) % Eos % (Auto) (0.0-4.0) % Baso % (Auto) (0.0-2.0) % Neut # (Auto) (1.8-7.0) K/uL Lymph # (Auto) (1.0-4.3) K/uL [place] # (Auto) (0.0-0.8) K/uL Eos # (Auto) (0.0-0.7) K/uL Baso # (Auto) (0.0-0.2) K/uL Puncture Site pCO2 (35-45) mm/Hg pO2 (80-100) mm/Hg HCO3 (21-28) mmol/L ABG pH (7.35-7.45) ABG Total CO2 (22-28) mmol/L ABG O2 Saturation (95-98) % ABG Base Excess (-2.0-3.0) mmol/L Sai Test ABG Potassium (3.6-5.2) mmol/L Sodium (132-148) mmol/l Chloride (98-107) mmol/L Glucose (65-105) mg/dl Lactate (0.7-2.1) mmol/L Liter Flow Potassium (3.6-5.2) mmol/L Carbon Dioxide (22-30) mmol/L Anion Gap (10-20) BUN (7-17) mg/dL Creatinine (0.7-1.2) mg/dL Est GFR ( Amer) Est GFR (Non-Af Amer) POC Glucose (mg/dL) 223 H 196 H (65-110) mg/dL Random Glucose (65-105) mg/dL Calcium (8.6-10.4) mg/dl Phosphorus (2.5-4.5) mg/dL Magnesium (1.6-2.3) mg/dL Total Bilirubin (0.2-1.3) mg/dL AST (14-36) U/L ALT (9-52) U/L Alkaline Phosphatase (38-126) U/L Total Protein (6.3-8.3) g/dL Albumin (3.5-5.0) g/dL Globulin (2.2-3.9) gm/dL Albumin/Globulin Ratio (1.0-2.1) Arterial Blood Potassium (3.6-5.2) mmol/L Laboratory Results - last 24 hr 10/16/18 10/16/18 10/16/18 07:16 11:18 16:11 WBC RBC Hgb Hct MCV MCH MCHC RDW Plt Count MPV Neut % (Auto) Lymph % (Auto) [place] % (Auto) Eos % (Auto) Baso % (Auto) Neut # (Auto) Lymph # (Auto) [place] # (Auto) Eos # (Auto) Baso # (Auto) Puncture Site pCO2 pO2 HCO3 ABG pH ABG Total CO2 ABG O2 Saturation ABG Base Excess Sai Test ABG Potassium Sodium Chloride Glucose Lactate Liter Flow Potassium Carbon Dioxide Anion Gap BUN Creatinine Est GFR ( Amer) Est GFR (Non-Af Amer) POC Glucose (mg/dL) 196 H 223 H 203 H Random Glucose Calcium Phosphorus Magnesium Total Bilirubin AST ALT Alkaline Phosphatase Total Protein Albumin Globulin Albumin/Globulin Ratio Arterial Blood Potassium 10/16/18 10/17/18 10/17/18 20:53 05:14 06:10 WBC 9.9 RBC 3.67 L Hgb 11.2 Hct 33.8 L MCV 91.9 MCH 30.5 MCHC 33.2 RDW 13.6 Plt Count 198 MPV 10.2 Neut % (Auto) 76.5 H Lymph % (Auto) 14.1 L [place] % (Auto) 8.8 Eos % (Auto) 0.2 Baso % (Auto) 0.4 Neut # (Auto) 7.6 H Lymph # (Auto) 1.4 [place] # (Auto) 0.9 H Eos # (Auto) 0.0 Baso # (Auto) 0.0 Puncture Site [place] pCO2 45 pO2 54 L HCO3 22.2 ABG pH 7.32 L ABG Total CO2 24.6 ABG O2 Saturation 90.0 L ABG Base Excess -3.1 L Sai Test Na ABG Potassium 3.7 Sodium 135.0 Chloride 101.0 Glucose 185 H Lactate 2.4 H Liter Flow 4.0 Potassium Carbon Dioxide Anion Gap BUN Creatinine Est GFR ( Amer) Est GFR (Non-Af Amer) POC Glucose (mg/dL) 246 H Random Glucose Calcium Phosphorus Magnesium Total Bilirubin AST ALT Alkaline Phosphatase Total Protein Albumin Globulin Albumin/Globulin Ratio Arterial Blood Potassium 3.7 10/17/18 10/17/18 06:10 07:37 WBC RBC Hgb Hct MCV MCH MCHC RDW Plt Count MPV Neut % (Auto) Lymph % (Auto) [place] % (Auto) Eos % (Auto) Baso % (Auto) Neut # (Auto) Lymph # (Auto) [place] # (Auto) Eos # (Auto) Baso # (Auto) Puncture Site pCO2 pO2 HCO3 ABG pH ABG Total CO2 ABG O2 Saturation ABG Base Excess Sai Test ABG Potassium Sodium 132 Chloride 99 Glucose Lactate Liter Flow Potassium 3.7 Carbon Dioxide 23 Anion Gap 14 BUN 14 Creatinine 0.7 Est GFR ( Amer) > 60 Est GFR (Non-Af Amer) > 60 POC Glucose (mg/dL) 218 H Random Glucose 179 H Calcium 8.2 L Phosphorus 2.6 Magnesium 1.8 Total Bilirubin 0.7 AST 34 ALT 17 Alkaline Phosphatase 72 Total Protein 6.1 L Albumin 3.4 L Globulin 2.7 Albumin/Globulin Ratio 1.2 Arterial Blood Potassium Fingerstick Blood Sugar Results: 218 Critical Care Progress Note - Nutrition Nutrition: Nutrition Category Date Time Status Diabetic [Consistent Carbohydrate] [DIET] Diets 10/17/18 Lunch Ordered Assessment/Plan - Assessment and Plan (Free Text) Assessment: 78 y/o female with PMHx of AAA, COPD, asthma, aortic stenosis, DM2, and HTN is currently s/p open radical nephrectomy by Dr. Chris Nolan POD2 2/2 renal mass. Patient currently in ICU for 2 nights after surgery for observation. Transferring to telemetry 10/17. Neuro -patient AAOx3 -no acute issues CV -HTN - resumed home med HCTZ/losartan 12.5/50 mg due to increasing BP (on monitor during rounds SBP 170s and was 130s this morning 10/17) -continue with home med crestor 10 mg daily -patient with tachycardia up to 120s max. Monitor after medication management completed. -patient with severe - stable -monitor vitals Pulm -COPD/asthma -continue with albuterol but make scheduled not PRN -patient on 4L NC -target O2 > 92% -continue with daily ABG in light of patient's respiratory status -Incentive spirometer, chest PT, encourage ambulation/OOB to chair GI -home pepcid 20 mg PO BID switched from IV due to resolved nausea -liquid diet upgraded to diabetic diet Renal -s/p open right radical nephrectomy POD2. EBL < 100 mL. -continue with routine CBC, CMP, Mg, Phos - replete electrolytes if needed -pain control - anesthesia ordered TRAVEL REGISTERED NURSE NICU pump dilaudid. Tylenol PRN on board. -antiemetics PRN -hand to be d/kory today, 10/[address] Chris Nolan's recs Endo -DM2 - ISS -> consider changing low to medium dose due to POC glucose increasing to 200s last 24h and possible increase in appetite after diet change -accuchecks ACHS -hypoglycemic protocol ID -no acute issues Heme -no acute issues DVT ppx: on hold due to risk of post-op bleeding GI ppx: pepcid 20 mg IV daily Diet: Diabetic Dispo: Transfer to telemetry case discussed with Dr. Monster Gmoez PGY1 <Shabbir Prado - Last Filed: 10/17/18 11:45> CCU Objective - Vital Signs / Intake & Output Vital Signs (Last 4 hours): Vital Signs Temp Pulse Resp BP Pulse Ox 10/17/18 11:00 110 H 26 H 89 L 10/17/18 10:20 114 H 24 127/61 87 L 10/17/18 10:00 108 H 17 10/17/18 09:21 108 H 17 175/58 H 86 L 10/17/18 09:00 115 H 22 90 L 10/17/18 08:21 112 H 14 157/58 H 94 L 10/17/18 08:00 98.4 F 117 H 27 H 91 L Intake and Output (Last 8hrs): Intake & Output 10/16/18 10/17/18 10/17/18 22:59 06:59 14:59 Intake Total 1140 1150 100 Output Total 150 600 125 Balance 990 550 -25 Weight 161 lb 8 oz Intake: Intake, IV Amount 900 900 100 Right Forearm 900 900 100 Oral 240 250 Output: Urine 150 600 125 Urethral (Hand) 150 600 125 Other: # Bowel Movements 0 - Medications Active Medications: Active Medications Generic Name Dose Route Start Last Admin Trade Name Freq PRN Reason Stop Dose Admin Acetaminophen 650 mg 10/15/18 11:28 Tylenol 325mg Tab PO Q6 PRN Fever >100.4 F Albuterol/Ipratropium 3 ml 10/17/18 10:15 10/17/18 11:07 Duoneb 3 Mg/0.5 Mg (3 Ml) Ud INH 3 ml Q6H RENETTA Administration Dextrose 0 gm 10/15/18 11:30 Glutose 15 PO ONCE PRN Hypoglycemia Protocol Protocol Dextrose 0 ml 10/15/18 11:54 Dextrose 50% Inj IV STAT PRN Hypoglycemia Protocol Protocol Dextrose 0 gm 10/15/18 11:54 Glutose 15 PO ONCE PRN Hypoglycemia Protocol Protocol Famotidine 20 mg 10/15/18 18:00 10/17/18 10:50 Pepcid PO 20 mg BID RENETTA Administration Fluticasone/Vilanterol 1 puff 10/16/18 08:00 10/17/18 07:39 Breo Ellipta 100-25 Mcg Inh INH 1 puff RQD RENETTA Administration Glucagon 0 mg 10/15/18 11:30 Glucagen Diagnostic Kit IM STAT PRN Hypoglycemia Protocol Protocol Glucagon 0 mg 10/15/18 11:54 Glucagen Diagnostic Kit IM STAT PRN Hypoglycemia Protocol Protocol Heparin Sodium (Porcine) 5,000 units 10/17/18 14:00 Heparin SC Q8 RENETTA Hydromorphone HCl 1 mg 10/16/18 22:19 10/17/18 08:04 Dilaudid IVP 1 mg Q3H PRN Administration Pain, moderate (4-7) Dextrose 1,000 mls @ 0 mls/hr 10/15/18 11:30 Dextrose 5% In Water 1000 Ml IV .Q0M PRN Hypoglycemia Protocol Protocol Per Protocol Lactated Ringer's 1,000 mls @ 100 mls/hr 10/15/18 18:45 10/17/18 08:45 Lactated Ringer's IV 100 mls/hr .Q10H RENETTA Administration Insulin Human Regular 0 unit 10/17/18 11:30 Novolin R SC 10/17/18 23:59 ACHS RENETTA Protocol Losartan Potassium 50 mg 10/17/18 11:00 10/17/18 10:33 Cozaar PO 50 mg DAILY RENETTA Administration Ondansetron HCl 4 mg 10/15/18 10:34 10/16/18 21:20 Zofran Inj IVP 4 mg Q8H PRN Administration Nausea/Vomiting Rosuvastatin Calcium 10 mg 10/15/18 22:00 10/16/18 21:21 Crestor PO 10 mg HS RENETTA Administration Verapamil HCl 120 mg 10/17/18 11:45 Calan Sr Tab PO DAILY RENETTA - Patient Studies Lab Studies: Microbiology Studies 10/15/18 13:48 MRSA Culture (Admit) - Final Nose MRSA NOT DETECTED Lab Studies 10/17/18 10/17/18 10/17/18 Range/Units 07:37 06:10 06:10 WBC 9.9 (4.8-10.8) K/uL RBC 3.67 L (3.80-5.20) Mil/uL Hgb 11.2 (11.0-16.0) g/dL Hct 33.8 L (34.0-47.0) % MCV 91.9 (81.0-99.0) fL MCH 30.5 (27.0-31.0) pg MCHC 33.2 (33.0-37.0) g/dL RDW 13.6 (11.5-14.5) % Plt Count 198 (130-400) K/uL MPV 10.2 (7.2-11.7) fL Neut % (Auto) 76.5 H (50.0-75.0) % Lymph % (Auto) 14.1 L (20.0-40.0) % [place] % (Auto) 8.8 (0.0-10.0) % Eos % (Auto) 0.2 (0.0-4.0) % Baso % (Auto) 0.4 (0.0-2.0) % Neut # (Auto) 7.6 H (1.8-7.0) K/uL Lymph # (Auto) 1.4 (1.0-4.3) K/uL [place] # (Auto) 0.9 H (0.0-0.8) K/uL Eos # (Auto) 0.0 (0.0-0.7) K/uL Baso # (Auto) 0.0 (0.0-0.2) K/uL Puncture Site pCO2 (35-45) mm/Hg pO2 (80-100) mm/Hg HCO3 (21-28) mmol/L ABG pH (7.35-7.45) ABG Total CO2 (22-28) mmol/L ABG O2 Saturation (95-98) % ABG Base Excess (-2.0-3.0) mmol/L Sai Test ABG Potassium (3.6-5.2) mmol/L Sodium 132 (132-148) mmol/l Chloride 99 (98-107) mmol/L Glucose (65-105) mg/dl Lactate (0.7-2.1) mmol/L Liter Flow Potassium 3.7 (3.6-5.2) mmol/L Carbon Dioxide 23 (22-30) mmol/L Anion Gap 14 (10-20) BUN 14 (7-17) mg/dL Creatinine 0.7 (0.7-1.2) mg/dL Est GFR ( Amer) > 60 Est GFR (Non-Af Amer) > 60 POC Glucose (mg/dL) 218 H (65-110) mg/dL Random Glucose 179 H (65-105) mg/dL Calcium 8.2 L (8.6-10.4) mg/dl Phosphorus 2.6 (2.5-4.5) mg/dL Magnesium 1.8 (1.6-2.3) mg/dL Total Bilirubin 0.7 (0.2-1.3) mg/dL AST 34 (14-36) U/L ALT 17 (9-52) U/L Alkaline Phosphatase 72 (38-126) U/L Total Protein 6.1 L (6.3-8.3) g/dL Albumin 3.4 L (3.5-5.0) g/dL Globulin 2.7 (2.2-3.9) gm/dL Albumin/Globulin Ratio 1.2 (1.0-2.1) Arterial Blood Potassium (3.6-5.2) mmol/L 10/17/18 10/16/18 10/16/18 Range/Units 05:14 20:53 16:11 WBC (4.8-10.8) K/uL RBC (3.80-5.20) Mil/uL Hgb (11.0-16.0) g/dL Hct (34.0-47.0) % MCV (81.0-99.0) fL MCH (27.0-31.0) pg MCHC (33.0-37.0) g/dL RDW (11.5-14.5) % Plt Count (130-400) K/uL MPV (7.2-11.7) fL Neut % (Auto) (50.0-75.0) % Lymph % (Auto) (20.0-40.0) % [place] % (Auto) (0.0-10.0) % Eos % (Auto) (0.0-4.0) % Baso % (Auto) (0.0-2.0) % Neut # (Auto) (1.8-7.0) K/uL Lymph # (Auto) (1.0-4.3) K/uL [place] # (Auto) (0.0-0.8) K/uL Eos # (Auto) (0.0-0.7) K/uL Baso # (Auto) (0.0-0.2) K/uL Puncture Site [place] pCO2 45 (35-45) mm/Hg pO2 54 L (80-100) mm/Hg HCO3 22.2 (21-28) mmol/L ABG pH 7.32 L (7.35-7.45) ABG Total CO2 24.6 (22-28) mmol/L ABG O2 Saturation 90.0 L (95-98) % ABG Base Excess -3.1 L (-2.0-3.0) mmol/L Sai Test Na ABG Potassium 3.7 (3.6-5.2) mmol/L Sodium 135.0 (132-148) mmol/l Chloride 101.0 (98-107) mmol/L Glucose 185 H (65-105) mg/dl Lactate 2.4 H (0.7-2.1) mmol/L Liter Flow 4.0 Potassium (3.6-5.2) mmol/L Carbon Dioxide (22-30) mmol/L Anion Gap (10-20) BUN (7-17) mg/dL Creatinine (0.7-1.2) mg/dL Est GFR ( Amer) Est GFR (Non-Af Amer) POC Glucose (mg/dL) 246 H 203 H (65-110) mg/dL Random Glucose (65-105) mg/dL Calcium (8.6-10.4) mg/dl Phosphorus (2.5-4.5) mg/dL Magnesium (1.6-2.3) mg/dL Total Bilirubin (0.2-1.3) mg/dL AST (14-36) U/L ALT (9-52) U/L Alkaline Phosphatase (38-126) U/L Total Protein (6.3-8.3) g/dL Albumin (3.5-5.0) g/dL Globulin (2.2-3.9) gm/dL Albumin/Globulin Ratio (1.0-2.1) Arterial Blood Potassium 3.7 (3.6-5.2) mmol/L 10/16/18 Range/Units 11:18 WBC (4.8-10.8) K/uL RBC (3.80-5.20) Mil/uL Hgb (11.0-16.0) g/dL Hct (34.0-47.0) % MCV (81.0-99.0) fL MCH (27.0-31.0) pg MCHC (33.0-37.0) g/dL RDW (11.5-14.5) % Plt Count (130-400) K/uL MPV (7.2-11.7) fL Neut % (Auto) (50.0-75.0) % Lymph % (Auto) (20.0-40.0) % [place] % (Auto) (0.0-10.0) % Eos % (Auto) (0.0-4.0) % Baso % (Auto) (0.0-2.0) % Neut # (Auto) (1.8-7.0) K/uL Lymph # (Auto) (1.0-4.3) K/uL [place] # (Auto) (0.0-0.8) K/uL Eos # (Auto) (0.0-0.7) K/uL Baso # (Auto) (0.0-0.2) K/uL Puncture Site pCO2 (35-45) mm/Hg pO2 (80-100) mm/Hg HCO3 (21-28) mmol/L ABG pH (7.35-7.45) ABG Total CO2 (22-28) mmol/L ABG O2 Saturation (95-98) % ABG Base Excess (-2.0-3.0) mmol/L Sai Test ABG Potassium (3.6-5.2) mmol/L Sodium (132-148) mmol/l Chloride (98-107) mmol/L Glucose (65-105) mg/dl Lactate (0.7-2.1) mmol/L Liter Flow Potassium (3.6-5.2) mmol/L Carbon Dioxide (22-30) mmol/L Anion Gap (10-20) BUN (7-17) mg/dL Creatinine (0.7-1.2) mg/dL Est GFR ( Amer) Est GFR (Non-Af Amer) POC Glucose (mg/dL) 223 H (65-110) mg/dL Random Glucose (65-105) mg/dL Calcium (8.6-10.4) mg/dl Phosphorus (2.5-4.5) mg/dL Magnesium (1.6-2.3) mg/dL Total Bilirubin (0.2-1.3) mg/dL AST (14-36) U/L ALT (9-52) U/L Alkaline Phosphatase (38-126) U/L Total Protein (6.3-8.3) g/dL Albumin (3.5-5.0) g/dL Globulin (2.2-3.9) gm/dL Albumin/Globulin Ratio (1.0-2.1) Arterial Blood Potassium (3.6-5.2) mmol/L Laboratory Results - last 24 hr 10/16/18 10/16/18 10/16/18 11:18 16:11 20:53 WBC RBC Hgb Hct MCV MCH MCHC RDW Plt Count MPV Neut % (Auto) Lymph % (Auto) [place] % (Auto) Eos % (Auto) Baso % (Auto) Neut # (Auto) Lymph # (Auto) [place] # (Auto) Eos # (Auto) Baso # (Auto) Puncture Site pCO2 pO2 HCO3 ABG pH ABG Total CO2 ABG O2 Saturation ABG Base Excess Sai Test ABG Potassium Sodium Chloride Glucose Lactate Liter Flow Potassium Carbon Dioxide Anion Gap BUN Creatinine Est GFR ( Amer) Est GFR (Non-Af Amer) POC Glucose (mg/dL) 223 H 203 H 246 H Random Glucose Calcium Phosphorus Magnesium Total Bilirubin AST ALT Alkaline Phosphatase Total Protein Albumin Globulin Albumin/Globulin Ratio Arterial Blood Potassium 10/17/18 10/17/18 10/17/18 05:14 06:10 06:10 WBC 9.9 RBC 3.67 L Hgb 11.2 Hct 33.8 L MCV 91.9 MCH 30.5 MCHC 33.2 RDW 13.6 Plt Count 198 MPV 10.2 Neut % (Auto) 76.5 H Lymph % (Auto) 14.1 L [place] % (Auto) 8.8 Eos % (Auto) 0.2 Baso % (Auto) 0.4 Neut # (Auto) 7.6 H Lymph # (Auto) 1.4 [place] # (Auto) 0.9 H Eos # (Auto) 0.0 Baso # (Auto) 0.0 Puncture Site [place] pCO2 45 pO2 54 L HCO3 22.2 ABG pH 7.32 L ABG Total CO2 24.6 ABG O2 Saturation 90.0 L ABG Base Excess -3.1 L Sai Test Na ABG Potassium 3.7 Sodium 135.0 132 Chloride 101.0 99 Glucose 185 H Lactate 2.4 H Liter Flow 4.0 Potassium 3.7 Carbon Dioxide 23 Anion Gap 14 BUN 14 Creatinine 0.7 Est GFR ( Amer) > 60 Est GFR (Non-Af Amer) > 60 POC Glucose (mg/dL) Random Glucose 179 H Calcium 8.2 L Phosphorus 2.6 Magnesium 1.8 Total Bilirubin 0.7 AST 34 ALT 17 Alkaline Phosphatase 72 Total Protein 6.1 L Albumin 3.4 L Globulin 2.7 Albumin/Globulin Ratio 1.2 Arterial Blood Potassium 3.7 10/17/18 07:37 WBC RBC Hgb Hct MCV MCH MCHC RDW Plt Count MPV Neut % (Auto) Lymph % (Auto) [place] % (Auto) Eos % (Auto) Baso % (Auto) Neut # (Auto) Lymph # (Auto) [place] # (Auto) Eos # (Auto) Baso # (Auto) Puncture Site pCO2 pO2 HCO3 ABG pH ABG Total CO2 ABG O2 Saturation ABG Base Excess Sai Test ABG Potassium Sodium Chloride Glucose Lactate Liter Flow Potassium Carbon Dioxide Anion Gap BUN Creatinine Est GFR ( Amer) Est GFR (Non-Af Amer) POC Glucose (mg/dL) 218 H Random Glucose Calcium Phosphorus Magnesium Total Bilirubin AST ALT Alkaline Phosphatase Total Protein Albumin Globulin Albumin/Globulin Ratio Arterial Blood Potassium Critical Care Progress Note - Nutrition Nutrition: Nutrition Category Date Time Status Diabetic [Consistent Carbohydrate] [DIET] Diets 10/17/18 Lunch Active Assessment/Plan - Assessment and Plan (Free Text) Plan: Patient seen and examined at bedside. Patient with h/o /HTN s/p nephrectomy. Post op, patient is stable walking in room. Pain controlled -Restart home medications -continue dvt/pud ppx -wound care as per surgeon -Patient remains hemodynamically stable. d/w ICU team - Date & Time Date: 10/17/18 Time: 11:45
[2018-10-17] MEDS: Albuterol-Ipratrop 3 mg / 0.5 (3 ml) UD INH SCH ×2 (11:07→19:17)
--- NOTE | 2018-10-17 11:20 | CP.PCM.PN ---
Subjective - Date & Time of Evaluation Date of Evaluation: 10/16/18 Time of Evaluation: 11:19 - Subjective Subjective: Patient is out of bed to chair. Still having mild hypoxia. Wheezing noted Vital signs otherwise stable. Chest minimal bilateral rales noted. Mild tachycardia present. Labs otherwise nonspecific. Urine output is better We will continue to monitor bronchodilator out of bed to chair and follow the patient Objective - Vital Signs/Intake and Output Vital Signs (last 24 hours): Temp Pulse Resp BP Pulse Ox 98.4 F 110 H 26 H 127/61 89 L 10/17/18 08:00 10/17/18 11:00 10/17/18 11:00 10/17/18 10:20 10/17/18 11:00 Intake and Output: 10/17/18 10/17/18 06:59 18:59 Intake Total 1550 100 Output Total 600 125 Balance 950 -25 - Medications Medications: Current Medications Acetaminophen (Tylenol 325mg Tab) 650 mg PO Q6 PRN PRN Reason: Fever >100.4 F Albuterol/Ipratropium (Duoneb 3 Mg/0.5 Mg (3 Ml) Ud) 3 ml INH Q6H [facility] Last Admin: 10/17/18 11:07 Dose: 3 ml Dextrose (Glutose 15) 0 gm PO ONCE PRN; Protocol PRN Reason: Hypoglycemia Protocol Dextrose (Dextrose 50% Inj) 0 ml IV STAT PRN; Protocol PRN Reason: Hypoglycemia Protocol Dextrose (Glutose 15) 0 gm PO ONCE PRN; Protocol PRN Reason: Hypoglycemia Protocol Famotidine (Pepcid) 20 mg PO BID [facility] Last Admin: 10/17/18 10:50 Dose: 20 mg Fluticasone/Vilanterol (Breo Ellipta 100-25 Mcg Inh) 1 puff INH RQD [facility] Last Admin: 10/17/18 07:39 Dose: 1 puff Glucagon (Glucagen Diagnostic Kit) 0 mg IM STAT PRN; Protocol PRN Reason: Hypoglycemia Protocol Glucagon (Glucagen Diagnostic Kit) 0 mg IM STAT PRN; Protocol PRN Reason: Hypoglycemia Protocol Hydrochlorothiazide (Microzide) 12.5 mg PO DAILY [facility] Last Admin: 10/17/18 10:57 Dose: 12.5 mg Hydromorphone HCl (Dilaudid) 1 mg IVP Q3H PRN PRN Reason: Pain, moderate (4-7) Last Admin: 10/17/18 08:04 Dose: 1 mg Dextrose (Dextrose 5% In Water 1000 Ml) 1,000 mls @ 0 mls/hr IV .Q0M PRN; Protocol PRN Reason: Hypoglycemia Protocol Lactated Ringer's (Lactated Ringer's) 1,000 mls @ 100 mls/hr IV .Q10H [facility] Last Admin: 10/17/18 08:45 Dose: 100 mls/hr Insulin Human Regular (Novolin R) 0 unit SC ACHS [facility]; Protocol Stop: 10/17/18 23:59 Losartan Potassium (Cozaar) 50 mg PO DAILY [facility] Last Admin: 10/17/18 10:33 Dose: 50 mg Ondansetron HCl (Zofran Inj) 4 mg IVP Q8H PRN PRN Reason: Nausea/Vomiting Last Admin: 10/16/18 21:20 Dose: 4 mg Rosuvastatin Calcium (Crestor) 10 mg PO HS [facility] Last Admin: 10/16/18 21:21 Dose: 10 mg - Labs Labs: 10/17/18 06:10 10/17/18 06:10
--- NOTE | 2018-10-17 11:22 | CP.PCM.PN ---
Subjective - Date & Time of Evaluation Date of Evaluation: 10/17/18 Time of Evaluation: 11:20 - Subjective Subjective: Patient is having left arm pain. The IV site is likely infiltrated. Patient is on 40% Ventimask now. Saturation is 90-93%. No chest pain noted. Coughing is better, cough is producing a lot of mucus now. She is feeling better with that. No bowel movements. Urine output is improving. Currently on IV fluid. Chest good air entry, minimal expiratory wheezing present Assessment and recommendation: 78-year-old female with a history of AAA, COPD hypertension status post a right nephrectomy for renal mass. Currently improving. We will continue to monitor. Bronchodilators DVT prophylaxis and will follow the patient Objective - Vital Signs/Intake and Output Vital Signs (last 24 hours): Temp Pulse Resp BP Pulse Ox 98.4 F 110 H 26 H 127/61 89 L 10/17/18 08:00 10/17/18 11:00 10/17/18 11:00 10/17/18 10:20 10/17/18 11:00 Intake and Output: 10/17/18 10/17/18 06:59 18:59 Intake Total 1550 100 Output Total 600 125 Balance 950 -25 - Medications Medications: Current Medications Acetaminophen (Tylenol 325mg Tab) 650 mg PO Q6 PRN PRN Reason: Fever >100.4 F Albuterol/Ipratropium (Duoneb 3 Mg/0.5 Mg (3 Ml) Ud) 3 ml INH Q6H [facility] Last Admin: 10/17/18 11:07 Dose: 3 ml Dextrose (Glutose 15) 0 gm PO ONCE PRN; Protocol PRN Reason: Hypoglycemia Protocol Dextrose (Dextrose 50% Inj) 0 ml IV STAT PRN; Protocol PRN Reason: Hypoglycemia Protocol Dextrose (Glutose 15) 0 gm PO ONCE PRN; Protocol PRN Reason: Hypoglycemia Protocol Famotidine (Pepcid) 20 mg PO BID [facility] Last Admin: 10/17/18 10:50 Dose: 20 mg Fluticasone/Vilanterol (Breo Ellipta 100-25 Mcg Inh) 1 puff INH RQD [facility] Last Admin: 10/17/18 07:39 Dose: 1 puff Glucagon (Glucagen Diagnostic Kit) 0 mg IM STAT PRN; Protocol PRN Reason: Hypoglycemia Protocol Glucagon (Glucagen Diagnostic Kit) 0 mg IM STAT PRN; Protocol PRN Reason: Hypoglycemia Protocol Hydrochlorothiazide (Microzide) 12.5 mg PO DAILY [facility] Last Admin: 10/17/18 10:57 Dose: 12.5 mg Hydromorphone HCl (Dilaudid) 1 mg IVP Q3H PRN PRN Reason: Pain, moderate (4-7) Last Admin: 10/17/18 08:04 Dose: 1 mg Dextrose (Dextrose 5% In Water 1000 Ml) 1,000 mls @ 0 mls/hr IV .Q0M PRN; Protocol PRN Reason: Hypoglycemia Protocol Lactated Ringer's (Lactated Ringer's) 1,000 mls @ 100 mls/hr IV .Q10H [facility] Last Admin: 10/17/18 08:45 Dose: 100 mls/hr Insulin Human Regular (Novolin R) 0 unit SC ACHS [facility]; Protocol Stop: 10/17/18 23:59 Losartan Potassium (Cozaar) 50 mg PO DAILY [facility] Last Admin: 10/17/18 10:33 Dose: 50 mg Ondansetron HCl (Zofran Inj) 4 mg IVP Q8H PRN PRN Reason: Nausea/Vomiting Last Admin: 10/16/18 21:20 Dose: 4 mg Rosuvastatin Calcium (Crestor) 10 mg PO HS [facility] Last Admin: 10/16/18 21:21 Dose: 10 mg - Labs Labs: 10/17/18 06:10 10/17/18 06:10
--- NOTE | 2018-10-17 12:45 | PN ---
DATE: 10/16/2018 SUBJECTIVE: The patient is status post a right nephrectomy. She is currently in the ICU. I am going to mention that I had a chance to speak to the current team that is caring for the patient including the nurses several times. Urine output is noted. Vital signs noted. The patient is currently sitting awake. Complains of a little bit of abdominal pain, a little bit of nausea. No chest pain. Not short of breath. Breathing okay. Hard to take a deep breath. At her beside is her family but she is visited by her son. PAST MEDICAL AND SURGICAL: No other changes. MEDICATIONS: As noted on the chart. Currently the patient is still on the Ancef. Guevara catheter is in place draining about 40 to 50 mL an hour. PHYSICAL EXAMINATION: Remains unchanged. We are going to leave the Gianfranco in. See the plan listed above. The labs are noted. DIAGNOSIS: The patient is an 78-year-old lady with multiple medical issues. She is status post a right nephrectomy with reasonable good urine output with vital signs are okay. PLAN: Are as follows: 1. pulmonary toilet. We need to have patient ambulating. The ICU team wants to keep here for one more day that is fine with Urology as long as the patient is ambulating nicely. We will advance the diet tomorrow. We are going to await bowel movements. follow. The patient is stable status post a nephrectomy. Overall doing well. Carroll Nolan MD
[2018-10-17] MEDS: Verapamil 120 mg ER Tab PO SCH (14:31)
--- NOTE | 2018-10-17 15:17 | PCM.URO ---
Urology Progress Note - Objective Lab Studies: Reviewed (pod#2 discontinue hand) Lab Results Last 24 Hours: Laboratory Results - last 24 hr 10/16/18 10/16/18 10/16/18 11:18 16:11 20:53 WBC RBC Hgb Hct MCV MCH MCHC RDW Plt Count MPV Neut % (Auto) Lymph % (Auto) Logan % (Auto) Eos % (Auto) Baso % (Auto) Neut # (Auto) Lymph # (Auto) Logan # (Auto) Eos # (Auto) Baso # (Auto) Puncture Site pCO2 pO2 HCO3 ABG pH ABG Total CO2 ABG O2 Saturation ABG Base Excess Sai Test ABG Potassium Sodium Chloride Glucose Lactate Liter Flow Potassium Carbon Dioxide Anion Gap BUN Creatinine Est GFR ( Amer) Est GFR (Non-Af Amer) POC Glucose (mg/dL) 223 H 203 H 246 H Random Glucose Calcium Phosphorus Magnesium Total Bilirubin AST ALT Alkaline Phosphatase Total Protein Albumin Globulin Albumin/Globulin Ratio Arterial Blood Potassium 10/17/18 10/17/18 10/17/18 05:14 06:10 06:10 WBC 9.9 RBC 3.67 L Hgb 11.2 Hct 33.8 L MCV 91.9 MCH 30.5 MCHC 33.2 RDW 13.6 Plt Count 198 MPV 10.2 Neut % (Auto) 76.5 H Lymph % (Auto) 14.1 L Logan % (Auto) 8.8 Eos % (Auto) 0.2 Baso % (Auto) 0.4 Neut # (Auto) 7.6 H Lymph # (Auto) 1.4 Logan # (Auto) 0.9 H Eos # (Auto) 0.0 Baso # (Auto) 0.0 Puncture Site [place] pCO2 45 pO2 54 L HCO3 22.2 ABG pH 7.32 L ABG Total CO2 24.6 ABG O2 Saturation 90.0 L ABG Base Excess -3.1 L Sai Test Na ABG Potassium 3.7 Sodium 135.0 132 Chloride 101.0 99 Glucose 185 H Lactate 2.4 H Liter Flow 4.0 Potassium 3.7 Carbon Dioxide 23 Anion Gap 14 BUN 14 Creatinine 0.7 Est GFR ( Amer) > 60 Est GFR (Non-Af Amer) > 60 POC Glucose (mg/dL) Random Glucose 179 H Calcium 8.2 L Phosphorus 2.6 Magnesium 1.8 Total Bilirubin 0.7 AST 34 ALT 17 Alkaline Phosphatase 72 Total Protein 6.1 L Albumin 3.4 L Globulin 2.7 Albumin/Globulin Ratio 1.2 Arterial Blood Potassium 3.7 10/17/18 10/17/18 07:37 11:49 WBC RBC Hgb Hct MCV MCH MCHC RDW Plt Count MPV Neut % (Auto) Lymph % (Auto) Logan % (Auto) Eos % (Auto) Baso % (Auto) Neut # (Auto) Lymph # (Auto) Logan # (Auto) Eos # (Auto) Baso # (Auto) Puncture Site pCO2 pO2 HCO3 ABG pH ABG Total CO2 ABG O2 Saturation ABG Base Excess Sai Test ABG Potassium Sodium Chloride Glucose Lactate Liter Flow Potassium Carbon Dioxide Anion Gap BUN Creatinine Est GFR ( Amer) Est GFR (Non-Af Amer) POC Glucose (mg/dL) 218 H 323 H Random Glucose Calcium Phosphorus Magnesium Total Bilirubin AST ALT Alkaline Phosphatase Total Protein Albumin Globulin Albumin/Globulin Ratio Arterial Blood Potassium Intake & Output: Intake & Output 10/16/18 10/17/18 10/17/18 18:59 06:59 18:59 Intake Total 2240 1550 820 Output Total 500 600 295 Balance 1740 950 525 Weight 161 lb 8 oz Intake: Intake, IV Amount 1400 1300 600 Left Wrist 300 Right Forearm 1400 1300 300 Oral 840 250 220 Output: Urine 500 600 295 Urethral (Hand) 500 600 295 Urine, Voided 0 Stool 0 Other: # Bowel Movements 0 Vital Signs: Vital Signs - 24 hr 10/16/18 10/16/18 10/16/18 15:20 15:30 16:00 Temperature 99.7 F H Pulse Rate 101 H 108 H 110 H Respiratory 22 24 27 H Rate Blood Pressure 137/47 L Blood Pressure [Right Radial Artery] O2 Sat by Pulse 93 L 93 L 88 L Oximetry 10/16/18 10/16/18 10/16/18 16:20 17:20 17:30 Temperature Pulse Rate 102 H 96 H Respiratory 21 19 Rate Blood Pressure 135/46 L 130/53 L Blood Pressure 129/47 L [Right Radial Artery] O2 Sat by Pulse Oximetry 10/16/18 10/16/18 10/16/18 18:20 19:20 20:00 Temperature Pulse Rate 96 H 101 H 111 H Respiratory 16 21 26 H Rate Blood Pressure 130/51 L 141/57 L Blood Pressure [Right Radial Artery] O2 Sat by Pulse 92 L 92 L 85 L Oximetry 10/16/18 10/16/18 10/16/18 20:20 21:00 22:00 Temperature 99.6 F Pulse Rate 106 H 106 H 102 H Respiratory 20 22 14 Rate Blood Pressure 151/59 H Blood Pressure 112/47 L [Right Radial Artery] O2 Sat by Pulse 92 L 90 L 89 L Oximetry 10/16/18 10/17/18 10/17/18 23:00 00:00 00:35 Temperature Pulse Rate 98 H 100 H 113 H Respiratory 14 17 32 H Rate Blood Pressure Blood Pressure [Right Radial Artery] O2 Sat by Pulse 88 L 88 L Oximetry 10/17/18 10/17/18 10/17/18 00:49 01:00 01:20 Temperature 98.8 F Pulse Rate 100 H 100 H Respiratory 11 L 20 Rate Blood Pressure 159/51 H 161/50 H Blood Pressure 109/42 L [Right Radial Artery] O2 Sat by Pulse 83 L 86 L Oximetry 10/17/18 10/17/18 10/17/18 02:00 02:20 03:00 Temperature Pulse Rate 97 H 102 H 106 H Respiratory 14 20 17 Rate Blood Pressure 132/51 L Blood Pressure [Right Radial Artery] O2 Sat by Pulse 89 L 89 L 90 L Oximetry 10/17/18 10/17/18 10/17/18 03:20 04:00 04:20 Temperature Pulse Rate 104 H 119 H Respiratory 16 25 H Rate Blood Pressure 137/50 L 126/59 L Blood Pressure [Right Radial Artery] O2 Sat by Pulse 88 L 81 L Oximetry 10/17/18 10/17/18 10/17/18 05:00 05:29 05:41 Temperature 98.7 F Pulse Rate 118 H 129 H 116 H Respiratory 23 30 H 19 Rate Blood Pressure 130/109 H 134/47 L Blood Pressure [Right Radial Artery] O2 Sat by Pulse 87 L 90 L 91 L Oximetry 10/17/18 10/17/18 10/17/18 06:00 07:20 08:00 Temperature 98.4 F Pulse Rate 121 H 111 H 117 H Respiratory 30 H 20 27 H Rate Blood Pressure 144/68 Blood Pressure [Right Radial Artery] O2 Sat by Pulse 90 L 91 L Oximetry 12/28/18 12/28/18 12/28/18 08:21 09:00 09:21 Temperature Pulse Rate 112 H 115 H 108 H Respiratory 14 22 17 Rate Blood Pressure 157/58 H 175/58 H Blood Pressure [Right Radial Artery] O2 Sat by Pulse 94 L 90 L 86 L Oximetry 10/17/18 10/17/18 10/17/18 10:00 10:20 11:00 Temperature Pulse Rate 108 H 114 H 110 H Respiratory 17 24 26 H Rate Blood Pressure 127/61 Blood Pressure [Right Radial Artery] O2 Sat by Pulse 87 L 89 L Oximetry 10/17/18 10/17/18 10/17/18 11:20 12:00 12:20 Temperature 98.9 F Pulse Rate 118 H 109 H 119 H Respiratory 29 H 19 24 Rate Blood Pressure 137/62 131/53 L Blood Pressure [Right Radial Artery] O2 Sat by Pulse 88 L 92 L 86 L Oximetry 10/17/18 10/17/18 10/17/18 12:46 13:00 13:20 Temperature Pulse Rate 105 H 106 H 109 H Respiratory 22 22 27 H Rate Blood Pressure 118/52 L 120/45 L Blood Pressure [Right Radial Artery] O2 Sat by Pulse 92 L 91 L 91 L Oximetry 10/17/18 10/17/18 14:00 14:20 Temperature Pulse Rate 104 H 111 H Respiratory 18 20 Rate Blood Pressure 103/34 L Blood Pressure [Right Radial Artery] O2 Sat by Pulse 92 L Oximetry
[2018-10-17] MEDS: Piperacillin/Tazobact 2.25 GM in Sodium Chloride 100 ML IVPB SCH (23:01)
[2018-10-18] MEDS: HYDROmorphone 1 mg/ml ISec IVP PRN ×5 (00:04→22:47)
[2018-10-18] MEDS: Albuterol-Ipratrop 3 mg / 0.5 (3 ml) UD INH SCH ×4 (02:00→20:21)
[2018-10-18] MEDS: Piperacillin/Tazobact 2.25 GM in Sodium Chloride 100 ML IVPB SCH ×3 (05:26→21:19)
[2018-10-18 05:41] LABS: BASO % 0.3 % (0.0-2.0); EOS % 0.4 % (0.0-4.0); HEMOGLOBIN 10.5 g/dL (11.0-16.0); LYMPH # 0.9 K/uL (1.0-4.3); LYMPH % 8.7 % (20.0-40.0); MEAN CELL VOLUME 91.5 fL (81.0-99.0); MEAN CORPUSCULAR HEMOGLOBIN 30.5 pg (27.0-31.0); MEAN CORPUSCULAR HGB CONC 33.4 g/dL (33.0-37.0); MEAN PLATELET VOLUME 9.8 fL (7.2-11.7); MONO # 1.2 K/uL (0.0-0.8); MONO % 10.9 % (0.0-10.0); NEUT # 8.6 K/uL (1.8-7.0); NEUT % 79.7 % (50.0-75.0); NRBC % 0.1 % (0.0-2.0); PLATELET COUNT 191 K/uL (130-400); RBC 3.43 Mil/uL (3.80-5.20); RED CELL DISTRIBUTION WIDTH 13.3 % (11.5-14.5); WHITE BLOOD COUNT 10.8 K/uL (4.8-10.8)
[2018-10-18 05:58] LABS: ALB/GLOB RATIO 1.1 (1.0-2.1); ALBUMIN 3.1 g/dL (3.5-5.0); ALT/SGPT 30 U/L (9-52); AST/SGOT 33 U/L (14-36); BLOOD UREA NITROGEN 22 mg/dL (7-17); CALCIUM 7.7 mg/dl (8.6-10.4); GFR NON-AFRICAN AMERICAN > 60
[2018-10-18] MEDS: Fluticasone-Vilanterol 100/25mcg Diskus INH SCH (07:20)
[2018-10-18 08:55] LABS: ANISOCYTOSIS SLIGHT; BANDS 2 % (0-2); BASOPHIL 1 % (0-2); LYMPHOCYTE 7 % (20-40); MONOCYTE 11 % (0-10); NEUTROPHIL 79 % (50-75); PLATELET ESTIMATE NORMAL (NORMAL); POLYCHROMIC SLIGHT; TOTAL CELLS COUNTED 100; TOXIC GRANULATION PRESENT
[2018-10-18 08:57] LABS: HYPOCHROMIC SLIGHT
[2018-10-18] MEDS: Verapamil 120 mg ER Tab PO SCH (09:33)
--- NOTE | 2018-10-18 10:27 | RAD ---
Date of service: 10/17/2018 HISTORY: ch COMPARISON: No prior. FINDINGS: LUNGS: The lungs are hyperinflated and there is peribronchial thickening with chronic changes in both lungs. There is mild pulmonary venous congestion. PLEURA: No pleural effusions or pneumothorax. CARDIOVASCULAR: There is mild cardiomegaly. There are aortic atherosclerotic calcifications present. OSSEOUS STRUCTURES: There are old fracture deformities in the left mid posterior ribs. There is diffuse bone demineralization. There are discrete curvilinear calcifications lateral to the left humeral head which may represent calcific tendinitis in the appropriate clinical setting. VISUALIZED UPPER ABDOMEN: Normal. OTHER FINDINGS: None. IMPRESSION: No active pulmonary disease. COPD. Mild cardiomegaly and pulmonary venous congestion.
[2018-10-18] MEDS ORDERED: Glucagon Recombinant 1 mg Inj IM PRN (10:45)
[2018-10-18] MEDS ORDERED: Dextrose 50% SYRINGE Inj (50 ml) IV PRN (10:45)
[2018-10-18] MEDS ORDERED: Magnesium Citrate Oral SOL (300 ml) PO ONE (11:23)
[2018-10-18] MEDS: (Novolin R) Insulin Human Regular 100 units/ml vial SC SCH ×3 (12:30→22:02)
--- NOTE | 2018-10-18 22:51 | CP.PCM.PN ---
Subjective - Date & Time of Evaluation Date of Evaluation: 10/18/18 Time of Evaluation: 22:49 - Subjective Subjective: Patient is now being transferred from intensive care unit to room #658. Patient is comfortably lying down. But having cough. But she is not able to produce the mucus out. Using the high flow oxygen with the 80% and a 24 L/min. Saturation is only 90-93%. But the patient is otherwise comfortable. She has no fever. No chills noted. She is making urine On examination: Vital signs noted. Blood pressure slightly on the low side. Heart rate is 110 bpm. Saturation 93% on 80% high flow FiO2. Chest diffuse bilateral wheezing and rales noted Chest x-ray yesterday showing the suspected right lower lung pneumonia. Assessment: patient is status post a right nephrectomy. Postoperatively patient possibly having COPD exacerbation with suspected pneumonia. In my opinion patient will need bronchodilators. Mucomyst. antibiotic. And also will add a low-dose corticosteroid and Lasix. We will slowly taper the oxygen as tolerated. Out of bed to chair. Physical exercise and treatment as well as incentive spirometer recommended. We will follow the patient. Labs ordered tomorrow. Objective - Vital Signs/Intake and Output Vital Signs (last 24 hours): Temp Pulse Resp BP Pulse Ox 97.6 F 92 H 19 93/50 L 91 L 10/18/18 20:00 10/18/18 20:00 10/18/18 20:22 10/18/18 20:00 10/18/18 20:00 Intake and Output: 10/18/18 10/19/18 18:59 06:59 Intake Total 300 Output Total 0 Balance 300 - Medications Medications: Current Medications Acetaminophen (Tylenol 325mg Tab) 650 mg PO Q6 PRN PRN Reason: Fever >100.4 F Last Admin: 10/18/18 16:45 Dose: 650 mg Acetylcysteine (Acetylcysteine 20%) 4 ml INH Q6H [facility] Albuterol/Ipratropium (Duoneb 3 Mg/0.5 Mg (3 Ml) Ud) 3 ml INH Q6H [facility] Last Admin: 10/18/18 20:21 Dose: 3 ml Dextrose (Dextrose 50% Inj) 0 ml IV STAT PRN; Protocol PRN Reason: Hypoglycemia Protocol Dextrose (Glutose 15) 0 gm PO ONCE PRN; Protocol PRN Reason: Hypoglycemia Protocol Docusate Sodium (Colace) 100 mg PO TID [facility] Last Admin: 10/18/18 18:39 Dose: 100 mg Famotidine (Pepcid) 20 mg PO BID [facility] Last Admin: 10/18/18 18:42 Dose: 20 mg Fluticasone/Vilanterol (Breo Ellipta 100-25 Mcg Inh) 1 puff INH RQD [facility] Last Admin: 10/18/18 07:20 Dose: 1 puff Furosemide (Lasix) 20 mg IVP STAT [facility] Stop: 10/18/18 22:47 Glucagon (Glucagen Diagnostic Kit) 0 mg IM STAT PRN; Protocol PRN Reason: Hypoglycemia Protocol Heparin Sodium (Porcine) (Heparin) 5,000 units SC Q8 [facility] Last Admin: 10/18/18 21:20 Dose: 5,000 units Hydromorphone HCl (Dilaudid) 1 mg IVP Q3H PRN PRN Reason: Pain, moderate (4-7) Last Admin: 10/18/18 22:47 Dose: 1 mg Piperacillin Sod/Tazobactam (Sod 2.25 gm/ Sodium Chloride) 100 mls @ 100 mls/hr IVPB Q8H [facility]; Protocol Last Admin: 10/18/18 21:19 Dose: 100 mls/hr Dextrose (Dextrose 5% In Water 1000 Ml) 1,000 mls @ 0 mls/hr IV .Q0M PRN; Protocol PRN Reason: Hypoglycemia Protocol Insulin Human Regular (Novolin R) 0 unit SC ACHS [facility]; Protocol Last Admin: 10/18/18 22:02 Dose: Not Given Methylprednisolone (Solu-Medrol) 40 mg IVP Q12 [facility] Stop: 10/20/18 23:01 Ondansetron HCl (Zofran Inj) 4 mg IVP Q8H PRN PRN Reason: Nausea/Vomiting Last Admin: 10/16/18 21:20 Dose: 4 mg Rosuvastatin Calcium (Crestor) 10 mg PO HS [facility] Last Admin: 10/18/18 22:04 Dose: 10 mg Verapamil HCl (Calan Sr Tab) 60 mg PO DAILY [facility] - Labs Labs: 10/18/18 05:38 10/18/18 05:38
[2018-10-18] MEDS: MethylPREDNISolone 40 mg Vial IVP SCH (23:45)
[2018-10-19] MEDS: Acetylcysteine 20% Inhal Soln (4ml) INH SCH ×4 (01:15→20:31)
[2018-10-19] MEDS: HYDROmorphone 1 mg/ml ISec IVP PRN ×2 (04:25→09:57)
[2018-10-19] MEDS: Piperacillin/Tazobact 2.25 GM in Sodium Chloride 100 ML IVPB SCH ×3 (05:08→21:42)
[2018-10-19] MEDS: Fluticasone-Vilanterol 100/25mcg Diskus INH SCH (07:40)
[2018-10-19] MEDS: Albuterol-Ipratrop 3 mg / 0.5 (3 ml) UD INH SCH ×3 (07:40→20:32)
[2018-10-19] MEDS: (Novolin R) Insulin Human Regular 100 units/ml vial SC SCH ×4 (08:00→21:21)
[2018-10-19 08:02] LABS: BASO % 0.4 % (0.0-2.0); EOS % 0.2 % (0.0-4.0); HEMOGLOBIN 10.2 g/dL (11.0-16.0); LYMPH # 0.4 K/uL (1.0-4.3); MEAN CELL VOLUME 92.4 fL (81.0-99.0); MEAN CORPUSCULAR HEMOGLOBIN 30.9 pg (27.0-31.0); MEAN CORPUSCULAR HGB CONC 33.4 g/dL (33.0-37.0); MONO # 0.5 K/uL (0.0-0.8); MONO % 5.3 % (0.0-10.0); NEUT # 9.2 K/uL (1.8-7.0); NEUT % 90.1 % (50.0-75.0); NRBC % 0.1 % (0.0-2.0); PLATELET COUNT 237 K/uL (130-400); RBC 3.31 Mil/uL (3.80-5.20); RED CELL DISTRIBUTION WIDTH 13.5 % (11.5-14.5); WHITE BLOOD COUNT 10.2 K/uL (4.8-10.8)
[2018-10-19 08:20] LABS: ALB/GLOB RATIO 1.1 (1.0-2.1); ALBUMIN 3.2 g/dL (3.5-5.0); CALCIUM 7.9 mg/dl (8.6-10.4)
--- NOTE | 2018-10-19 08:21 | CP.PCM.PN ---
Subjective - Date & Time of Evaluation Date of Evaluation: 10/19/18 Time of Evaluation: 08:19 - Subjective Subjective: Patient is currently more awake and responding. She is currently receiving the initial Mucomyst as well as albuterol. She still having mucus with cough. Very scanty mucous coming out at this time. She is not in any distress. Vital signs stable. . On examination: Chest bilateral significant rales and wheezing noted Regular heart sounds. Abdomen soft postoperative 1+ edema in the legs noted Chest x-ray some improvement noted, right and lower left lower lung bases showing some infiltrative changes but very minimal. Currently patient is on low-dose corticosteroid Antibiotic Albuterol and Mucomyst. I recommended out of bed to chair. Incentive spirometer. Taper the oxygen as tolerated. Follow-up the patient Currently patient is on heparin subcu for DVT prophylaxis mild improvement in the saturation noted. She still on 80% FiO2 will taper as tolerated Objective - Vital Signs/Intake and Output Vital Signs (last 24 hours): Temp Pulse Resp BP Pulse Ox 98.1 F 97 H 20 119/73 94 L 10/19/18 04:49 10/19/18 04:49 10/19/18 08:13 10/19/18 04:49 10/19/18 04:49 - Medications Medications: Current Medications Acetaminophen (Tylenol 325mg Tab) 650 mg PO Q6 PRN PRN Reason: Fever >100.4 F Last Admin: 10/18/18 16:45 Dose: 650 mg Acetylcysteine (Acetylcysteine 20%) 4 ml INH RQ6 [facility] Last Admin: 10/19/18 07:40 Dose: 4 ml Albuterol/Ipratropium (Duoneb 3 Mg/0.5 Mg (3 Ml) Ud) 3 ml INH Q6H [facility] Last Admin: 10/19/18 07:40 Dose: 3 ml Dextrose (Dextrose 50% Inj) 0 ml IV STAT PRN; Protocol PRN Reason: Hypoglycemia Protocol Dextrose (Glutose 15) 0 gm PO ONCE PRN; Protocol PRN Reason: Hypoglycemia Protocol Docusate Sodium (Colace) 100 mg PO TID [facility] Last Admin: 10/18/18 18:39 Dose: 100 mg Famotidine (Pepcid) 20 mg PO BID [facility] Last Admin: 10/18/18 18:42 Dose: 20 mg Fluticasone/Vilanterol (Breo Ellipta 100-25 Mcg Inh) 1 puff INH RQD [facility] Last Admin: 10/19/18 07:40 Dose: Not Given Glucagon (Glucagen Diagnostic Kit) 0 mg IM STAT PRN; Protocol PRN Reason: Hypoglycemia Protocol Heparin Sodium (Porcine) (Heparin) 5,000 units SC Q8 [facility] Last Admin: 10/19/18 05:07 Dose: 5,000 units Hydromorphone HCl (Dilaudid) 1 mg IVP Q3H PRN PRN Reason: Pain, moderate (4-7) Last Admin: 10/19/18 04:25 Dose: 1 mg Piperacillin Sod/Tazobactam (Sod 2.25 gm/ Sodium Chloride) 100 mls @ 100 mls/hr IVPB Q8H [facility]; Protocol Last Admin: 10/19/18 05:08 Dose: 100 mls/hr Dextrose (Dextrose 5% In Water 1000 Ml) 1,000 mls @ 0 mls/hr IV .Q0M PRN; Protocol PRN Reason: Hypoglycemia Protocol Insulin Human Regular (Novolin R) 0 unit SC ACHS [facility]; Protocol Last Admin: 10/18/18 22:02 Dose: Not Given Methylprednisolone (Solu-Medrol) 40 mg IVP Q12 [facility] Stop: 10/20/18 23:01 Last Admin: 10/18/18 23:45 Dose: 40 mg Ondansetron HCl (Zofran Inj) 4 mg IVP Q8H PRN PRN Reason: Nausea/Vomiting Last Admin: 10/16/18 21:20 Dose: 4 mg Rosuvastatin Calcium (Crestor) 10 mg PO HS [facility] Last Admin: 10/18/18 22:04 Dose: 10 mg Verapamil HCl (Calan Tab) 60 mg PO DAILY [facility] - Labs Labs: 10/19/18 07:49 10/18/18 05:38
[2018-10-19] MEDS: MethylPREDNISolone 40 mg Vial IVP SCH ×2 (09:07→22:00)
[2018-10-19 09:08] LABS: BANDS 1 % (0-2); EOSINOPHIL 1 % (0-4); LYMPHOCYTE 4 % (20-40); MONOCYTE 5 % (0-10); NEUTROPHIL 89 % (50-75); PLATELET ESTIMATE NORMAL (NORMAL); TOTAL CELLS COUNTED 100
[2018-10-19 09:09] LABS: ANISOCYTOSIS SLIGHT; HYPOCHROMIC SLIGHT; LARGE PLATELETS PRESENT; TOXIC GRANULATION PRESENT
[2018-10-19 09:10] LABS: POLYCHROMIC SLIGHT
--- NOTE | 2018-10-19 10:58 | RAD ---
Date of service: 10/19/2018 HISTORY: pneumonia COMPARISON: 10/10/2018. FINDINGS: LUNGS: The lungs are hyperinflated and there is peribronchial thickening with chronic changes in both lungs. There is superimposed mild pulmonary venous congestion. PLEURA: No pleural effusions or pneumothorax. CARDIOVASCULAR: Mild cardiomegaly and prominent central vasculature. There are aortic atherosclerotic calcifications present. OSSEOUS STRUCTURES: There is diffuse bone demineralization. There are old healed fracture deformities in the left mid posterior ribs. VISUALIZED UPPER ABDOMEN: Normal. OTHER FINDINGS: None. IMPRESSION: Moderate cardiomegaly and pulmonary venous congestion. Background of COPD. No lobar pneumonia.
[2018-10-19] MEDS ORDERED: Magnesium Hydroxide Susp 30 ml UD PO ONE (18:00)
[2018-10-20] MEDS: Piperacillin/Tazobact 2.25 GM in Sodium Chloride 100 ML IVPB SCH ×3 (05:12→22:02)
[2018-10-20 07:18] LABS: BASO % 0.3 % (0.0-2.0); LYMPH # 0.7 K/uL (1.0-4.3); LYMPH % 7.3 % (20.0-40.0); MEAN CELL VOLUME 93.5 fL (81.0-99.0); MEAN CORPUSCULAR HEMOGLOBIN 31.5 pg (27.0-31.0); MEAN CORPUSCULAR HGB CONC 33.7 g/dL (33.0-37.0); MEAN PLATELET VOLUME 9.8 fL (7.2-11.7); MONO # 0.6 K/uL (0.0-0.8); NEUT # 7.8 K/uL (1.8-7.0); NEUT % 85.4 % (50.0-75.0); PLATELET COUNT 237 K/uL (130-400); RBC 3.18 Mil/uL (3.80-5.20); RED CELL DISTRIBUTION WIDTH 13.7 % (11.5-14.5); WHITE BLOOD COUNT 9.2 K/uL (4.8-10.8)
[2018-10-20 07:31] LABS: ALB/GLOB RATIO 1.2 (1.0-2.1); ALBUMIN 3.2 g/dL (3.5-5.0); ALT/SGPT 42 U/L (9-52); AST/SGOT 40 U/L (14-36); BLOOD UREA NITROGEN 42 mg/dL (7-17); CALCIUM 7.5 mg/dl (8.6-10.4); GFR NON-AFRICAN AMERICAN 53
[2018-10-20] MEDS: (Novolin R) Insulin Human Regular 100 units/ml vial SC SCH ×4 (07:44→21:47)
[2018-10-20] MEDS: HYDROmorphone 1 mg/ml ISec IVP PRN (08:35)
--- NOTE | 2018-10-20 08:38 | CP.PCM.PN ---
Subjective - Date & Time of Evaluation Date of Evaluation: 10/20/18 Time of Evaluation: 08:35 - Subjective Subjective: Patient now having some improvement in the oxygenation. The FiO2 reduced to 70%. Saturation is 98%. Less cough noted, able to bring up the mucus. Comfortable otherwise. Not in any distress. Complaining of pain in the back On examination: Vital signs stable. Chest good air entry minimal expiratory wheezing noted regular heart sounds nontender abdomen extremities edema 1+ Assessment and recommendation: 6-year-old female with a history of advanced COPD hypertension CAD patient also has a typically admitted with the hospital following the nephrectomy. Now having possible acute exacerbation of COPD with possible pneumonia on an tibiotic and bronchodilators corticosteroid monitoring and taper off the oxygen to keep spo2 92% and will follow the patient discussed with urologist Objective - Vital Signs/Intake and Output Vital Signs (last 24 hours): Temp Pulse Resp BP Pulse Ox 98.1 F 81 20 106/52 L 98 10/20/18 07:00 10/20/18 07:00 10/20/18 07:00 10/20/18 07:00 10/20/18 07:00 - Medications Medications: Current Medications Acetaminophen (Tylenol 325mg Tab) 650 mg PO Q6 PRN PRN Reason: Fever >100.4 F Last Admin: 10/18/18 16:45 Dose: 650 mg Acetylcysteine (Acetylcysteine 20%) 4 ml INH RQ6 [facility] Last Admin: 10/19/18 20:31 Dose: 4 ml Albuterol/Ipratropium (Duoneb 3 Mg/0.5 Mg (3 Ml) Ud) 3 ml INH Q6H [facility] Last Admin: 10/19/18 20:32 Dose: 3 ml Dextrose (Dextrose 50% Inj) 0 ml IV STAT PRN; Protocol PRN Reason: Hypoglycemia Protocol Dextrose (Glutose 15) 0 gm PO ONCE PRN; Protocol PRN Reason: Hypoglycemia Protocol Docusate Sodium (Colace) 100 mg PO TID [facility] Last Admin: 10/19/18 17:45 Dose: 100 mg Famotidine (Pepcid) 20 mg PO BID [facility] Last Admin: 10/19/18 17:45 Dose: 20 mg Fluticasone/Vilanterol (Breo Ellipta 100-25 Mcg Inh) 1 puff INH RQD [facility] Last Admin: 10/19/18 07:40 Dose: Not Given Glucagon (Glucagen Diagnostic Kit) 0 mg IM STAT PRN; Protocol PRN Reason: Hypoglycemia Protocol Heparin Sodium (Porcine) (Heparin) 5,000 units SC Q8 [facility] Last Admin: 10/20/18 05:05 Dose: 5,000 units Hydromorphone HCl (Dilaudid) 1 mg IVP Q3H PRN PRN Reason: Pain, moderate (4-7) Last Admin: 10/19/18 09:57 Dose: 1 mg Piperacillin Sod/Tazobactam (Sod 2.25 gm/ Sodium Chloride) 100 mls @ 100 mls/hr IVPB Q8H [facility]; Protocol Last Admin: 10/20/18 05:12 Dose: 100 mls/hr Dextrose (Dextrose 5% In Water 1000 Ml) 1,000 mls @ 0 mls/hr IV .Q0M PRN; Protocol PRN Reason: Hypoglycemia Protocol Insulin Human Regular (Novolin R) 0 unit SC ACHS [facility]; Protocol Last Admin: 10/20/18 07:44 Dose: 4 u Methylprednisolone (Solu-Medrol) 40 mg IVP Q12 [facility] Stop: 10/20/18 23:01 Last Admin: 10/19/18 22:00 Dose: 40 mg Ondansetron HCl (Zofran Inj) 4 mg IVP Q8H PRN PRN Reason: Nausea/Vomiting Last Admin: 10/16/18 21:20 Dose: 4 mg Rosuvastatin Calcium (Crestor) 10 mg PO HS [facility] Last Admin: 10/19/18 21:42 Dose: 10 mg Verapamil HCl (Calan Tab) 60 mg PO DAILY [facility] Last Admin: 10/19/18 09:57 Dose: 60 mg - Labs Labs: 10/20/18 07:05 10/20/18 07:05
[2018-10-20 08:56] LABS: LYMPHOCYTE 4 % (20-40); MONOCYTE 7 % (0-10); NEUTROPHIL 89 % (50-75); TOTAL CELLS COUNTED 100
[2018-10-20 08:57] LABS: HYPOCHROMIC SLIGHT; PLATELET ESTIMATE NORMAL (NORMAL); POLYCHROMIC SLIGHT
[2018-10-20] MEDS: Albuterol-Ipratrop 3 mg / 0.5 (3 ml) UD INH SCH ×2 (09:00→19:54)
[2018-10-20] MEDS: Fluticasone-Vilanterol 100/25mcg Diskus INH SCH (09:00)
[2018-10-20] MEDS: Acetylcysteine 20% Inhal Soln (4ml) INH SCH ×3 (09:00→19:53)
--- NOTE | 2018-10-20 09:25 | PCM.URO ---
Urology Progress Note - General General: Tolerating Diet - Subjective Abdominal Pain: No Flank Pain: Yes Nausea: No Vomiting: No Voiding Well: Yes Dysuria: No Hematuria: No Dsypnea: Yes Chest Pain: No Fever & Chills: No - Objective Lab Studies: Reviewed Lab Results Last 24 Hours: Laboratory Results - last 24 hr 10/19/18 10/19/18 10/19/18 10:57 16:46 21:19 WBC RBC Hgb Hct MCV MCH MCHC RDW Plt Count MPV Neut % (Auto) Lymph % (Auto) [place] % (Auto) Eos % (Auto) Baso % (Auto) Neut # (Auto) Lymph # (Auto) [place] # (Auto) Eos # (Auto) Baso # (Auto) Neutrophils % (Manual) Lymphocytes % (Manual) Monocytes % (Manual) Platelet Estimate Polychromasia Hypochromasia (manual) Sodium Potassium Chloride Carbon Dioxide Anion Gap BUN Creatinine Est GFR ( Amer) Est GFR (Non-Af Amer) POC Glucose (mg/dL) 258 H 293 H 287 H Random Glucose Calcium Total Bilirubin AST ALT Alkaline Phosphatase Total Protein Albumin Globulin Albumin/Globulin Ratio 10/20/18 10/20/18 10/20/18 06:20 07:05 07:05 WBC 9.2 RBC 3.18 L Hgb 10.0 L Hct 29.7 L MCV 93.5 MCH 31.5 H MCHC 33.7 RDW 13.7 Plt Count 237 MPV 9.8 Neut % (Auto) 85.4 H Lymph % (Auto) 7.[address] [place] % (Auto) 7.0 Eos % (Auto) 0.0 Baso % (Auto) 0.3 Neut # (Auto) 7.8 H Lymph # (Auto) 0.[address] [place] # (Auto) 0.6 Eos # (Auto) 0.0 Baso # (Auto) 0.0 Neutrophils % (Manual) 89 H Lymphocytes % (Manual) 4 L Monocytes % (Manual) 7 Platelet Estimate Normal Polychromasia Slight Hypochromasia (manual) Slight Sodium 134 Potassium 4.4 Chloride 97 L Carbon Dioxide 30 Anion Gap 11 BUN 42 H Creatinine 1.0 Est GFR ( Amer) > 60 Est GFR (Non-Af Amer) 53 POC Glucose (mg/dL) 287 H Random Glucose 255 H D Calcium 7.5 L Total Bilirubin 0.7 AST 40 H ALT 42 Alkaline Phosphatase 82 Total Protein 5.9 L Albumin 3.2 L Globulin 2.7 Albumin/Globulin Ratio 1.2 Vital Signs: Vital Signs - 24 hr 10/19/18 10/19/18 10/19/18 15:45 16:00 16:44 Temperature 97.9 F Pulse Rate 95 H 48 L Respiratory 20 20 Rate Blood Pressure 111/61 O2 Sat by Pulse 96 Oximetry 10/19/18 10/19/18 10/20/18 20:44 23:20 03:54 Temperature 98.5 F Pulse Rate 93 H 66 Respiratory 20 20 Rate Blood Pressure 133/74 O2 Sat by Pulse 93 L Oximetry 10/20/18 10/20/18 04:27 07:00 Temperature 98.5 F 98.1 F Pulse Rate 91 H 81 Respiratory 22 20 Rate Blood Pressure 123/77 106/52 L O2 Sat by Pulse 94 L 98 Oximetry - Physical Exam Abdominal Exam: Soft (Lungs: scatterred rhonchi Heart- reg rhythm), Non-Tender, Non-Distended Bowel Sounds: Normal Dressing: Dry, Intact Back: No CVA Tenderness Extremities: Normal: Bilateral - Plan Wound Care: Yes Ambulation - Out of Bed: Yes Additional Information: Pulm care - Date & Time of Note Date: 10/20/18 Time: 09:25
[2018-10-20] MEDS: MethylPREDNISolone 40 mg Vial IVP SCH ×2 (11:03→22:04)
[2018-10-21] MEDS: Acetylcysteine 20% Inhal Soln (4ml) INH SCH ×4 (01:21→21:25)
[2018-10-21] MEDS: HYDROmorphone 1 mg/ml ISec IVP PRN ×3 (03:28→19:01)
[2018-10-21] MEDS: Piperacillin/Tazobact 2.25 GM in Sodium Chloride 100 ML IVPB SCH ×3 (05:15→22:47)
[2018-10-21] MEDS: (Novolin R) Insulin Human Regular 100 units/ml vial SC SCH ×4 (07:33→22:03)
[2018-10-21] MEDS: Albuterol-Ipratrop 3 mg / 0.5 (3 ml) UD INH SCH ×4 (09:23→21:20)
[2018-10-21] MEDS: Fluticasone-Vilanterol 100/25mcg Diskus INH SCH (09:23)
--- NOTE | 2018-10-21 14:33 | PCM.URO ---
Urology Progress Note - Objective Lab Studies: Reviewed (see also dictated notes plans : pulmonary toilet and ambulation gu stable) Lab Results Last 24 Hours: Laboratory Results - last 24 hr 10/20/18 10/20/18 10/21/18 16:56 21:27 06:52 POC Glucose (mg/dL) 217 H 239 H 248 H 10/21/18 10/21/18 10:49 11:40 POC Glucose (mg/dL) 240 H 243 H Intake & Output: Intake & Output 10/20/18 10/21/18 10/21/18 18:59 06:59 18:59 Intake Total 250 Balance 250 Intake: Oral 250 Other: # Voids Urine, Voided 3 # Bowel Movements 0 Vital Signs: Vital Signs - 24 hr 10/20/18 10/21/18 10/21/18 23:29 00:00 04:08 Temperature 97.6 F Pulse Rate 81 77 75 Respiratory 20 Rate Blood Pressure 147/52 L O2 Sat by Pulse Oximetry 10/21/18 10/21/18 04:30 07:00 Temperature 97.5 F L 97.8 F Pulse Rate 71 74 Respiratory 20 20 Rate Blood Pressure 125/68 125/79 O2 Sat by Pulse 91 L Oximetry
[2018-10-22] MEDS: Acetylcysteine 20% Inhal Soln (4ml) INH SCH ×4 (01:13→19:17)
[2018-10-22] MEDS: Albuterol-Ipratrop 3 mg / 0.5 (3 ml) UD INH SCH ×4 (04:59→19:17)
[2018-10-22] MEDS: Piperacillin/Tazobact 2.25 GM in Sodium Chloride 100 ML IVPB SCH (05:42)
[2018-10-22] MEDS: HYDROmorphone 1 mg/ml ISec IVP PRN ×3 (06:30→23:01)
--- NOTE | 2018-10-22 08:33 | PN ---
DATE: 10/19/2018 See previous notes. No major urologic changes are noted. See other notes in the chart. The diagnosis is right renal mass, status post right nephrectomy. Overall, the patient is doing well. Plan is as follows: Pulmonary toilet, ambulation. We will discontinue the antibiotics. And then further plans will follow. Follow the patient closely. Carroll Nolan MD
[2018-10-22] MEDS: Fluticasone-Vilanterol 100/25mcg Diskus INH SCH (08:38)
[2018-10-22] MEDS: (Novolin R) Insulin Human Regular 100 units/ml vial SC SCH ×3 (09:02→23:00)
--- NOTE | 2018-10-22 09:14 | PN ---
DATE: 10/17/2018 UROLOGY PROGRESS NOTE SUBJECTIVE: See history and physical. See operative note. See the progress note from 10/16/2018. The patient is currently resting comfortably. The plan is for transfer under the care of the ICU team. No major urologic changes. PAST MEDICAL AND SURGICAL HISTORY: Listed on the chart. REVIEW OF SYSTEMS: Listed above. PHYSICAL EXAMINATION: The drain is removed. The wound is intact grossly. Otherwise, no abnormality appreciated. PLAN: As follows: 1. We are going to remove the Guevara catheter. 2. We are going to continue follow labs for BUN and creatinine and doing well. 3. The main issue for the patient is pulmonary toilet in a patient with a chronic smoking history. Smoking even till the day of surgery. 4. Otherwise, she is doing well clinically. The plan is as follows: Transfer from the ICU, routine monitoring of the patient. Medical followup for the lungs, pulmonary toilet, ambulation, routine postoperative stuff. Further plans will follow. We will also advance her diet slowly. Carroll Nolan MD
--- NOTE | 2018-10-22 09:32 | PN ---
DATE: 10/21/2018 UROLOGY NOTE SUBJECTIVE: Please see the previous note on the patient, Mere Elizondo, 10/21/2018. Please see history and physical, operative note, and previous progress notes. The patient is currently resting comfortably. Her main complaint is just coughing, but she feels like it is getting better. The patient is ambulating slowly. She is resuming her diet slowly. Not much of an appetite is what she reports. No chest pain. Just the main thing that bothers the patient is the shortness of breath and difficulty breathing, she is currently on a breather. See the medical notes as well. From a Urology standpoint, see the plan listed below. PAST MEDICAL/SURGICAL: No other changes. REVIEW OF SYSTEMS: Otherwise no changes. SOCIAL HISTORY: On a social note, her sister has been visiting her. Her children have been visiting her on a regular basis. PHYSICAL EXAMINATION: GENERAL: Otherwise unremarkable. The wound is intact grossly. are noted. DIAGNOSIS: Right renal mass, status post right open nephrectomy. The patient is recovering, in a well, but a somewhat slow fashion. So the issues are as follows: 1. We need to continue to monitor the patient closely. 2. We will do pulmonary toilet. 3. Respiratory therapy. 4. All this is as per Dr. Allison. From Urology standpoint, BUN and creatinine remained stable. We are going to encourage ambulation, pulmonary toilet, etc., and continue to monitor the patient. One of the side note, the patient has not had a recent bowel movement, so we ordered the patient some milk of magnesia and she said for now she prefers not to have any enema, but she may require one, we will see her further. The abdomen is somewhat distended. Normal postop. No evidence of obstruction. No evidence of rebound or guarding, etc. We will continue to monitor the patient closely in this regard. Carroll Nolan MD
[2018-10-22 21:26] LABS: HEMOGLOBIN 11.5 g/dL (11.0-16.0); MEAN CELL VOLUME 94.2 fL (81.0-99.0); MEAN CORPUSCULAR HEMOGLOBIN 30.8 pg (27.0-31.0); MEAN CORPUSCULAR HGB CONC 32.7 g/dL (33.0-37.0); MEAN PLATELET VOLUME 9.5 fL (7.2-11.7); RBC 3.73 Mil/uL (3.80-5.20); RED CELL DISTRIBUTION WIDTH 13.6 % (11.5-14.5)
[2018-10-22 21:45] LABS: ALB/GLOB RATIO 1.2 (1.0-2.1); ALBUMIN 3.4 g/dL (3.5-5.0); ALT/SGPT 50 U/L (9-52); AST/SGOT 24 U/L (14-36); BLOOD UREA NITROGEN 26 mg/dL (7-17); CALCIUM 8.3 mg/dl (8.6-10.4); GFR NON-AFRICAN AMERICAN > 60
[2018-10-22 22:01] LABS: CK-MB 1.24 ng/mL (0.0-3.38)
--- NOTE | 2018-10-22 22:57 | CP.PCM.PN ---
Subjective - Date & Time of Evaluation Date of Evaluation: 10/21/18 Time of Evaluation: 22:56 - Subjective Subjective: Patient is currently feeling well. She was complaining of some cough, not able to go to the bathroom. Constipation. Minimal cough with mucus production. Otherwise she is okay. Using the nasal cannula On examination: Vital signs stable. Chest good air entry No wheezing or rales Currently on low-dose corticosteroids were tapered down. Bronchodilators and will follow the patient Objective - Vital Signs/Intake and Output Vital Signs (last 24 hours): Temp Pulse Resp BP Pulse Ox 98 F 78 20 163/82 H 96 10/22/18 16:00 10/22/18 16:00 10/22/18 16:00 10/22/18 22:35 10/22/18 16:00 Intake and Output: 10/22/18 10/23/18 18:59 06:59 Intake Total 200 Balance 200 - Medications Medications: Current Medications Acetaminophen (Tylenol 325mg Tab) 650 mg PO Q6 PRN PRN Reason: Fever >100.4 F Last Admin: 10/18/18 16:45 Dose: 650 mg Acetylcysteine (Acetylcysteine 20%) 4 ml INH RQ6 [facility] Last Admin: 10/22/18 19:17 Dose: 4 ml Albuterol/Ipratropium (Duoneb 3 Mg/0.5 Mg (3 Ml) Ud) 3 ml INH RQ6 [facility] Last Admin: 10/22/18 19:17 Dose: 3 ml Dextrose (Dextrose 50% Inj) 0 ml IV STAT PRN; Protocol PRN Reason: Hypoglycemia Protocol Dextrose (Glutose 15) 0 gm PO ONCE PRN; Protocol PRN Reason: Hypoglycemia Protocol Docusate Sodium (Colace) 100 mg PO TID [facility] Last Admin: 10/22/18 18:07 Dose: 100 mg Famotidine (Pepcid) 20 mg PO BID [facility] Last Admin: 10/22/18 18:07 Dose: 20 mg Fluticasone/Vilanterol (Breo Ellipta 100-25 Mcg Inh) 1 puff INH RQD [facility] Last Admin: 10/22/18 08:38 Dose: 1 puff Glucagon (Glucagen Diagnostic Kit) 0 mg IM STAT PRN; Protocol PRN Reason: Hypoglycemia Protocol Heparin Sodium (Porcine) (Heparin) 5,000 units SC Q8 [facility] Last Admin: 10/22/18 05:41 Dose: 5,000 units Insulin Human Regular (Novolin R) 0 unit SC ACHS [facility]; Protocol Last Admin: 10/22/18 18:07 Dose: 2 units Rosuvastatin Calcium (Crestor) 10 mg PO [facility] Last Admin: 10/21/18 22:46 Dose: 10 mg Verapamil HCl (Calan Tab) 60 mg PO DAILY [facility] Last Admin: 10/21/18 12:13 Dose: 60 mg - Labs Labs: 10/22/18 21:12 10/22/18 21:12
--- NOTE | 2018-10-22 23:00 | CP.PCM.PN ---
Subjective - Date & Time of Evaluation Date of Evaluation: 10/22/18 Time of Evaluation: 22:57 - Subjective Subjective: Patient this morning was comfortable. But this morning she was trying to get to the bathroom, she was feeling weak. The legs. No chest pain No shortness of breath. But this evening nurse called me saying that there is a EKG changes in the rhythm analysis showing multiple ventricular arrhythmias noted. Patient has no chest pain according to the nurse. Labs immediately ordered. Minimal elevation of the troponin level noted. Cardiology evaluation called in. Beta-ayush added. We will continue to monitor telemetry amezcua. We will reduce the bronchodilators. Reduce the corticosteroid. Assessment: 78-year-old female admitted with the nephrectomy. She has a multiple history including atherosclerotic heart disease peripheral vascular disease AAA repair. Admitted with the nephrectomy. Severe COPD COPD exacerbation, currently improving with oxygen. We will continue to monitor. Respiratory amezcua patient is improved markedly, but needs cardiology evaluation Objective - Vital Signs/Intake and Output Vital Signs (last 24 hours): Temp Pulse Resp BP Pulse Ox 98 F 78 20 163/82 H 96 10/22/18 16:00 10/22/18 16:00 10/22/18 16:00 10/22/18 22:35 10/22/18 16:00 Intake and Output: 10/22/18 10/23/18 18:59 06:59 Intake Total 200 Balance 200 - Medications Medications: Current Medications Acetaminophen (Tylenol 325mg Tab) 650 mg PO Q6 PRN PRN Reason: Fever >100.4 F Last Admin: 10/18/18 16:45 Dose: 650 mg Acetylcysteine (Acetylcysteine 20%) 4 ml INH RQ6 [facility] Last Admin: 10/22/18 19:17 Dose: 4 ml Albuterol/Ipratropium (Duoneb 3 Mg/0.5 Mg (3 Ml) Ud) 3 ml INH RQ6 [facility] Last Admin: 10/22/18 19:17 Dose: 3 ml Dextrose (Dextrose 50% Inj) 0 ml IV STAT PRN; Protocol PRN Reason: Hypoglycemia Protocol Dextrose (Glutose 15) 0 gm PO ONCE PRN; Protocol PRN Reason: Hypoglycemia Protocol Docusate Sodium (Colace) 100 mg PO TID [facility] Last Admin: 10/22/18 18:07 Dose: 100 mg Famotidine (Pepcid) 20 mg PO BID [facility] Last Admin: 10/22/18 18:07 Dose: 20 mg Fluticasone/Vilanterol (Breo Ellipta 100-25 Mcg Inh) 1 puff INH RQD [facility] Last Admin: 10/22/18 08:38 Dose: 1 puff Glucagon (Glucagen Diagnostic Kit) 0 mg IM STAT PRN; Protocol PRN Reason: Hypoglycemia Protocol Heparin Sodium (Porcine) (Heparin) 5,000 units SC Q8 [facility] Last Admin: 10/22/18 05:41 Dose: 5,000 units Insulin Human Regular (Novolin R) 0 unit SC ACHS [facility]; Protocol Last Admin: 10/22/18 18:07 Dose: 2 units Rosuvastatin Calcium (Crestor) 10 mg PO HS [facility] Last Admin: 10/21/18 22:46 Dose: 10 mg Verapamil HCl (Calan Tab) 60 mg PO DAILY [facility] Last Admin: 10/21/18 12:13 Dose: 60 mg - Labs Labs: 10/22/18 21:12 10/22/18 21:12
[2018-10-23] MEDS: Acetylcysteine 20% Inhal Soln (4ml) INH SCH ×3 (03:25→13:18)
[2018-10-23] MEDS: Albuterol-Ipratrop 3 mg / 0.5 (3 ml) UD INH SCH ×3 (03:25→13:18)
[2018-10-23 07:52] LABS: CK-MB 1.4 ng/mL (0.0-3.38)
[2018-10-23] MEDS: (Novolin R) Insulin Human Regular 100 units/ml vial SC SCH ×4 (08:10→21:42)
[2018-10-23 08:20] LABS: TROPONIN I 0.125 ng/mL (0.00-0.120)
[2018-10-23] MEDS: Fluticasone-Vilanterol 100/25mcg Diskus INH SCH (09:18)
--- NOTE | 2018-10-23 11:25 | PCM.URO ---
Urology Progress Note - Objective Lab Studies: Reviewed (above events noted will follow recommendations of dr watt no gu changes) Lab Results Last 24 Hours: Laboratory Results - last 24 hr 10/22/18 10/22/18 10/22/18 11:22 17:30 21:12 WBC 12.0 H RBC 3.73 L Hgb 11.5 Hct 35.2 MCV 94.2 MCH 30.8 MCHC 32.7 L RDW 13.6 Plt Count 310 MPV 9.5 Sodium Potassium Chloride Carbon Dioxide Anion Gap BUN Creatinine Est GFR ( Amer) Est GFR (Non-Af Amer) POC Glucose (mg/dL) 160 H 170 H Random Glucose Calcium Phosphorus Magnesium Total Bilirubin AST ALT Alkaline Phosphatase Total Creatine Kinase CK-MB (Mass) Troponin I Total Protein Albumin Globulin Albumin/Globulin Ratio 10/22/18 10/22/18 10/23/18 21:12 22:23 06:26 WBC RBC Hgb Hct MCV MCH MCHC RDW Plt Count MPV Sodium 135 Potassium 4.3 Chloride 98 Carbon Dioxide 32 H Anion Gap 9 L BUN 26 H Creatinine 0.8 Est GFR ( Amer) > 60 Est GFR (Non-Af Amer) > 60 POC Glucose (mg/dL) 234 H 196 H Random Glucose 136 H D Calcium 8.3 L Phosphorus 2.8 Magnesium 2.4 H Total Bilirubin 0.7 AST 24 ALT 50 Alkaline Phosphatase 80 Total Creatine Kinase 57 CK-MB (Mass) 1.24 Troponin I 0.1510 H* Total Protein 6.3 Albumin 3.4 L Globulin 2.9 Albumin/Globulin Ratio 1.2 10/23/18 07:19 WBC RBC Hgb Hct MCV MCH MCHC RDW Plt Count MPV Sodium Potassium Chloride Carbon Dioxide Anion Gap BUN Creatinine Est GFR ( Amer) Est GFR (Non-Af Amer) POC Glucose (mg/dL) Random Glucose Calcium Phosphorus Magnesium Total Bilirubin AST ALT Alkaline Phosphatase Total Creatine Kinase 55 CK-MB (Mass) 1.40 Troponin I 0.1250 H* Total Protein Albumin Globulin Albumin/Globulin Ratio Intake & Output: Intake & Output 10/22/18 10/23/18 10/23/18 18:59 06:59 18:59 Intake Total 200 Balance 200 Intake: Oral 200 Other: # Voids Urine, Voided 3 3 # Bowel Movements 0 2 Vital Signs: Vital Signs - 24 hr 0110/22/18 10/22/18 14:23 16:00 22:35 Temperature 98 F Pulse Rate 80 78 Respiratory 20 Rate Blood Pressure 162/72 H 163/82 H O2 Sat by Pulse 96 Oximetry 10/22/18 10/22/18 10/23/18 23:20 23:37 04:24 Temperature 98.1 F 98.1 F Pulse Rate 76 76 86 Respiratory 20 20 Rate Blood Pressure 157/69 H 169/71 H O2 Sat by Pulse 95 95 Oximetry 10/23/18 10/23/18 10/23/18 07:24 08:46 10:10 Temperature 97.7 F Pulse Rate 77 88 81 Respiratory 20 20 Rate Blood Pressure 167/78 H 131/69 O2 Sat by Pulse 98 92 L Oximetry 10/23/18 10:12 Temperature Pulse Rate Respiratory Rate Blood Pressure 131/69 O2 Sat by Pulse Oximetry
--- NOTE | 2018-10-23 11:29 | RAD ---
HISTORY: SOB COMPARISON: Chest x-ray performed 10/19/18 TECHNIQUE: Chest, one view. FINDINGS: LUNGS: Emphysematous changes. Hyperinflation may be seen in the setting of COPD. Bilateral pleural effusions and right greater than left lower lobe consolidations. Moderate pulmonary venous congestion. No definite pneumothorax. Please note that chest x-ray has limited sensitivity for the detection of pulmonary masses. CARDIOVASCULAR: Cardiomegaly. Atherosclerotic calcifications. OSSEOUS STRUCTURES: Degenerative changes. Calcific tendonitis, left humeral head. VISUALIZED UPPER ABDOMEN: Unremarkable. OTHER FINDINGS: None. IMPRESSION: Cardiomegaly. Bilateral pleural effusions and right greater than left lower lobe consolidations. Moderate pulmonary venous congestion. Emphysema/COPD.
[2018-10-23] MEDS: MethylPREDNISolone 40 mg Vial IVP SCH (12:35)
--- NOTE | 2018-10-23 13:35 | VASCLAB ---
Date of service: 10/23/2018 PROCEDURE: Lower Extremity Venous Duplex Exam. HISTORY: SWELLING TO BLE PRIORS: None. TECHNIQUE: Bilateral common femoral, femoral, popliteal and posterior tibial, peroneal and great saphenous veins were evaluated. Flow was assessed with color Doppler, compressibility, assessment of phasic flow and augmentation response. Report prepared by Prakash Huber, BS, RVT FINDINGS: RIGHT: 1. Common Femoral Vein: 1.1. Compressibility - Fully compressible: Thrombus - None : Flow - Phasic: Augmentation -Normal: Reflux - None. 2. Femoral Vein: 2.1. Compressibility - Fully compressible: Thrombus - None : Flow - Phasic: Augmentation -Normal: Reflux - None. 3. Popliteal Vein: 3.1. Compressibility - Fully compressible: Thrombus - None : Flow - Phasic: Augmentation -Normal: Reflux - None. 4. Posterior Tibial Vein: 4.1. Compressibility - Fully compressible: Thrombus - None: Flow - Phasic: Augmentation -Normal: Reflux - None. 5. Peroneal Vein: 5.1. Compressibility - Fully compressible: Thrombus - None: Flow - Phasic: Augmentation -Normal: Reflux - None. 6. Great Saphenous Vein: 6.1. Compressibility - Fully compressible: Thrombus - None: Flow - Phasic: Augmentation - Normal: Reflux - None. LEFT: 1. Common Femoral Vein: 1.1. Compressibility - Fully compressible: Thrombus - None: Flow - Phasic: Augmentation -Normal: Reflux - None. 2. Femoral Vein: 2.1. Compressibility - Fully compressible: Thrombus - None: Flow - Phasic: Augmentation -Normal: Reflux - None. 3. Popliteal Vein: 3.1. Compressibility - Fully compressible: Thrombus - None : Flow - Phasic: Augmentation -Normal: Reflux - None. 4. Posterior Tibial Vein: 4.1. Compressibility - Fully compressible: Thrombus - None: Flow - Phasic: Augmentation -Normal: Reflux - None. 5. Peroneal Vein: 5.1. Compressibility - Fully compressible: Thrombus - None: Flow - Phasic: Augmentation -Normal: Reflux - None. 6. Great Saphenous Vein: 6.1. Compressibility - Fully compressible: Thrombus - None: Flow - Phasic: Augmentation - Normal: Reflux - None. OTHER FINDINGS: Right: None significant. Left: None significant. IMPRESSION: Right: No evidence of deep or superficial vein thrombosis of the right lower extremity. Normal valve function noted of the right side. Left: No evidence of deep or superficial vein thrombosis of the left lower extremity. Normal valve function noted of the left side.
[2018-10-23] MEDS ORDERED: Cefepime 1 GM in Sodium Chloride 0.9% 100 ML IVPB SCH (14:00)
[2018-10-23 15:56] LABS: CK-MB 1.79 ng/mL (0.0-3.38); TROPONIN I 0.105 ng/mL (0.00-0.120)
[2018-10-23] MEDS: HYDROmorphone 1 mg/ml ISec IVP PRN (17:15)
--- NOTE | 2018-10-23 21:32 | CP.PCM.CON ---
History of Present Illness - History of Present Illness History of Present Illness: CC: Non ST elevation [place] and Diastolic CHF, Severe , Non sustained V Tach HPI: 78 y/o female with PMHx of AAA, COPD, asthma, aortic stenosis, DM2, and HTN is currently s/p open radical nephrectomy of right kidney by Dr. Chris Nolan POD0 2/2 renal mass. Patient transferred from PACU to ICU for overnight observation due to the CHF, Non STEMI and aortic stenosis. Now in Telemetry floor ROS: as stated above PMHx: as stated above. Patient also had a right leg "clot" and had to be on plavix for a short amount of time a few years ago. Off plavix now. PSHx: AAA > 9 years ago, cholecystectomy, hysterectomy FHx: non-contributory SocHx: smoker since 13 years old < 1 ppd, denies EtOH and tobacco use Home meds: albuterol and advair PRN, gabapentin 300 mg daily, pepcid 20 mg PO BID, crestor 10 mg daily, metformin 1 tab daily, tradjenta 5 mg daily, HCTZ/losartan 12.5mg/50mg daily Allergies: NKDA Review of Systems - Constitutional Constitutional: As Per HPI Physical Exam - Constitutional Appears: Well - Head Exam Head Exam: ATRAUMATIC, NORMAL INSPECTION, NORMOCEPHALIC - Eye Exam Eye Exam: EOMI, Normal appearance - Neck Exam Neck exam: Positive for: Normal Inspection - Respiratory Exam Respiratory Exam: Decreased Breath Sounds, NORMAL BREATHING PATTERN - Cardiovascular Exam Cardiovascular Exam: Systolic Murmur (crescendo decrescendo murmur) - GI/Abdominal Exam GI & Abdominal Exam: Normal Bowel Sounds, Soft, Tenderness (tenderness to palpation at surgical site, with dressing on c/d/i right flank). absent: Distended, Firm, Guarding - Exam Additional comments: hand catheter on - Extremities Exam Extremities exam: Positive for: normal capillary refill, normal inspection. Neg ative for: calf tenderness, joint swelling, tenderness - Neurological Exam Neurological exam: Alert, Oriented x3 - Psychiatric Exam Psychiatric exam: Normal Affect, Normal Mood - Skin Skin Exam: Dry, Intact, Normal Color, Warm Assessment & Plan - Assessment and Plan (Free Text) Assessment: 78 y/o female with PMHx of AAA, COPD, asthma, aortic stenosis, DM2, and HTN is currently s/p open radical nephrectomy by Dr. Chris Nolan POD0 2/2 renal mass. Patient currently hemodynamically stable in ICU for overnight observation. Neuro -patient AAOx3 -no acute issues CV -HTN - hold home med HCTZ/losartan 12.5/50 mg for now -continue with home med crestor 10 mg daily -monitor vitals Pulm -COPD/asthma -continue with albuterol PRN -patient on 3L NC with adequate O2 sat and no SOB, monitor -target O2 > 92% -Incentive spirometer GI -continue with home pepcid 20 mg PO BID -no acute issues Renal -s/p open right radical nephrectomy POD0 -ordered stat post-op labs CBC, CMP, Mg, Phos - replete electrolytes if needed -pending ABG ordered by surgical staff -pain control - tylenol, toradol, and morphine all ordered on PRN basis. Latter for severe pain. -antiemetic zofran PRN -labs ordered for tomorrow AM 10/[address] Nolan -follow Dr. Chris Nolan, urology, recs Endo -DM2 -ISS -accuchecks ACHS -hypoglycemic protocol ID -no acute issues Heme -no acute issues DVT ppx: hold as patient is POD0 GI ppx: home med pepcid 20 mg PO BID Diet: Liquid - previously ordered Patient s/p Non STEMI, Acute diastolic CHF, Severe Scheduled for cath tomorrow D/W the patient and her sister Past Patient History - Past Medical History & Family History Past Medical History?: Yes - Past Social History Smoking Status: Current Some Days Smoker - CARDIAC Hx Cardiac Disorders: Yes Hx Hypercholesterolemia: Yes Hx Hypertension: Yes - PULMONARY Hx Chronic Obstructive Pulmonary Disease (COPD): Yes - NEUROLOGICAL Hx Neurological Disorder: No - HEENT Hx HEENT Problems: Yes Hx Cataracts: Yes - RENAL Hx Chronic Kidney Disease: Yes Other/Comment: RENAL MASS - ENDOCRINE/METABOLIC Hx Diabetes Mellitus Type 2: Yes - HEMATOLOGICAL/ONCOLOGICAL Hx Blood Disorders: No - INTEGUMENTARY Hx Dermatological Problems: No - MUSCULOSKELETAL/RHEUMATOLOGICAL Hx Falls: Yes Hx Fractures: Yes - GASTROINTESTINAL Hx Gastrointestinal Disorders: Yes Hx Gall Bladder Disease: Yes - GENITOURINARY/GYNECOLOGICAL Hx Genitourinary Disorders: No - PSYCHIATRIC Hx Substance Use: No - SURGICAL HISTORY Hx Surgeries: Yes Hx Abdominal Aortic Aneurysm Repair: Yes Hx Cataract Extraction: Yes Hx Cholecystectomy: Yes Hx Hysterectomy: Yes Other/Comment: abdominal aneurysm >9yrs ago - ANESTHESIA Hx Anesthesia: Yes Hx Anesthesia Reactions: No Hx Malignant Hyperthermia: No Has any member of the family had a problem w/ anesthesia?: No Meds Allergies/Adverse Reactions: Allergies Allergy/AdvReac Type Severity Reaction Status Date / Time No Known Allergies Allergy Verified 10/06/18 11:12 - Medications Medications: Current Medications Acetaminophen (Tylenol 325mg Tab) 650 mg PO Q6 PRN PRN Reason: Fever >100.4 F Last Admin: 10/23/18 12:57 Dose: 650 mg Acetylcysteine (Acetylcysteine 20%) 4 ml INH RQ6 [facility] Last Admin: 10/23/18 13:18 Dose: Not Given Albuterol/Ipratropium (Duoneb 3 Mg/0.5 Mg (3 Ml) Ud) 3 ml INH RQ6 [facility] Last Admin: 10/23/18 13:18 Dose: Not Given Aspirin (Aspirin Chewable) 81 mg PO DAILY [facility] Bisacodyl (Dulcolax) 10 mg [place] ONCE PRN PRN Reason: Constipation Dextrose (Dextrose 50% Inj) 0 ml IV STAT PRN; Protocol PRN Reason: Hypoglycemia Protocol Dextrose (Glutose 15) 0 gm PO ONCE PRN; Protocol PRN Reason: Hypoglycemia Protocol Docusate Sodium (Colace) 100 mg PO TID [facility] Last Admin: 10/23/18 13:39 Dose: Not Given Famotidine (Pepcid) 20 mg PO BID [facility] Last Admin: 10/23/18 17:14 Dose: 20 mg Fluticasone/Vilanterol (Breo Ellipta 100-25 Mcg Inh) 1 puff INH RQD [facility] Last Admin: 10/23/18 09:18 Dose: Not Given Glucagon (Glucagen Diagnostic Kit) 0 mg IM STAT PRN; Protocol PRN Reason: Hypoglycemia Protocol Heparin Sodium (Porcine) (Heparin) 5,000 units SC Q8 [facility] Last Admin: 10/23/18 13:39 Dose: 5,000 units Hydromorphone HCl (Dilaudid) 1 mg IVP Q8 PRN PRN Reason: Pain, severe (8-10) Last Admin: 10/23/18 17:15 Dose: 1 mg Cefepime HCl 1 gm/ Sodium (Chloride) 100 mls @ 100 mls/hr IVPB Q12H [facility]; Protocol Last Admin: 10/23/18 13:39 Dose: 100 mls/hr Insulin Human Regular (Novolin R) 0 unit SC ACHS [facility]; Protocol Last Admin: 10/23/18 17:14 Dose: 6 units Methylprednisolone (Solu-Medrol) 20 mg IVP Q12H [facility] Last Admin: 10/23/18 12:35 Dose: 20 mg Metoprolol Tartrate (Lopressor) 12.5 mg PO BID [facility] Last Admin: 10/23/18 17:14 Dose: 12.5 mg Rosuvastatin Calcium (Crestor) 10 mg PO HS [facility] Last Admin: 10/22/18 22:30 Dose: 10 mg Verapamil HCl (Calan Tab) 60 mg PO DAILY [facility] Last Admin: 10/23/18 10:12 Dose: 60 mg Results - Vital Signs Recent Vital Signs: Last Vital Signs Temp 97.8 F 10/23/18 15:00 Pulse 89 10/23/18 15:00 Resp 18 10/23/18 15:00 BP 159/70 H 10/23/18 15:00 Pulse Ox 96 10/23/18 15:00 - Labs Result Diagrams: 10/22/18 21:12 10/22/18 21:12 Labs: Laboratory Results - last 24 hr 10/22/18 10/22/18 10/22/18 21:12 21:12 22:23 WBC 12.0 H RBC 3.73 L Hgb 11.5 Hct 35.2 MCV 94.2 MCH 30.8 MCHC 32.7 L RDW 13.6 Plt Count 310 MPV 9.5 Sodium 135 Potassium 4.3 Chloride 98 Carbon Dioxide 32 H Anion Gap 9 L BUN 26 H Creatinine 0.8 Est GFR ( Amer) > 60 Est GFR (Non-Af Amer) > 60 POC Glucose (mg/dL) 234 H Random Glucose 136 H D Calcium 8.3 L Phosphorus 2.8 Magnesium 2.4 H Total Bilirubin 0.7 AST 24 ALT 50 Alkaline Phosphatase 80 Total Creatine Kinase 57 CK-MB (Mass) 1.24 Troponin I 0.1510 H* Total Protein 6.3 Albumin 3.4 L Globulin 2.9 Albumin/Globulin Ratio 1.2 10/23/18 10/23/18 10/23/18 06:26 07:19 12:04 WBC RBC Hgb Hct MCV MCH MCHC RDW Plt Count MPV Sodium Potassium Chloride Carbon Dioxide Anion Gap BUN Creatinine Est GFR ( Amer) Est GFR (Non-Af Amer) POC Glucose (mg/dL) 196 H 140 H Random Glucose Calcium Phosphorus Magnesium Total Bilirubin AST ALT Alkaline Phosphatase Total Creatine Kinase 55 CK-MB (Mass) 1.40 Troponin I 0.1250 H* Total Protein Albumin Globulin Albumin/Globulin Ratio 10/23/18 10/23/18 14:08 16:11 WBC RBC Hgb Hct MCV MCH MCHC RDW Plt Count MPV Sodium Potassium Chloride Carbon Dioxide Anion Gap BUN Creatinine Est GFR ( Amer) Est GFR (Non-Af Amer) POC Glucose (mg/dL) 339 H Random Glucose Calcium Phosphorus Magnesium Total Bilirubin AST ALT Alkaline Phosphatase Total Creatine Kinase 59 CK-MB (Mass) 1.79 Troponin I 0.1050 Total Protein Albumin Globulin Albumin/Globulin Ratio
--- NOTE | 2018-10-23 22:01 | CP.PCM.PN ---
Subjective - Date & Time of Evaluation Date of Evaluation: 10/23/18 Time of Evaluation: 21:59 - Subjective Subjective: Last night and this morning patient had an episodes of ventricular arrhythmias. Cardiac enzymes were Elevated. Cardiology evaluation called in. I spoke to the quality assurance monitor chassis. Patient is a high risk for cardiac events. Recommended to have angiogram tomorrow. Patient has a nephrectomy, concerned about the renal failure also. Today chest x-ray showing right lower lobe infiltrative changes. I recommended a low-dose corticosteroid and also antibiotic restarted Currently patient is feeling much better now. She is on 3 L of nasal cannula, less cough noted, no chest pain. Leg swelling is less. Most likely patient had a postoperative pneumonia. COPD exacerbation. Non-ST elevation PR. We will continue the current management. Cardiology follow-up Objective - Vital Signs/Intake and Output Vital Signs (last 24 hours): Temp Pulse Resp BP Pulse Ox 97.8 F 89 18 159/70 H 96 10/23/18 15:00 10/23/18 15:00 10/23/18 15:00 10/23/18 15:00 10/23/18 15:00 - Medications Medications: Current Medications Acetaminophen (Tylenol 325mg Tab) 650 mg PO Q6 PRN PRN Reason: Fever >100.4 F Last Admin: 10/23/18 12:57 Dose: 650 mg Acetylcysteine (Acetylcysteine 20%) 4 ml INH RQ6 [facility] Last Admin: 10/23/18 13:18 Dose: Not Given Albuterol/Ipratropium (Duoneb 3 Mg/0.5 Mg (3 Ml) Ud) 3 ml INH RQ6 [facility] Last Admin: 10/23/18 13:18 Dose: Not Given Aspirin (Aspirin Chewable) 81 mg PO DAILY [facility] Bisacodyl (Dulcolax) 10 mg [place] ONCE PRN PRN Reason: Constipation Dextrose (Dextrose 50% Inj) 0 ml IV STAT PRN; Protocol PRN Reason: Hypoglycemia Protocol Dextrose (Glutose 15) 0 gm PO ONCE PRN; Protocol PRN Reason: Hypoglycemia Protocol Docusate Sodium (Colace) 100 mg PO TID [facility] Last Admin: 10/23/18 13:39 Dose: Not Given Famotidine (Pepcid) 20 mg PO BID [facility] Last Admin: 10/23/18 17:14 Dose: 20 mg Fluticasone/Vilanterol (Breo Ellipta 100-25 Mcg Inh) 1 puff INH RQD [facility] Last Admin: 10/23/18 09:18 Dose: Not Given Glucagon (Glucagen Diagnostic Kit) 0 mg IM STAT PRN; Protocol PRN Reason: Hypoglycemia Protocol Heparin Sodium (Porcine) (Heparin) 5,000 units SC Q8 [facility] Last Admin: 10/23/18 13:39 Dose: 5,000 units Hydromorphone HCl (Dilaudid) 1 mg IVP Q8 PRN PRN Reason: Pain, severe (8-10) Last Admin: 10/23/18 17:15 Dose: 1 mg Cefepime HCl 1 gm/ Sodium (Chloride) 100 mls @ 100 mls/hr IVPB Q12H [facility]; Protocol Last Admin: 10/23/18 13:39 Dose: 100 mls/hr Insulin Human Regular (Novolin R) 0 unit SC ACHS [facility]; Protocol Last Admin: 10/23/18 21:42 Dose: Not Given Methylprednisolone (Solu-Medrol) 20 mg IVP Q12H [facility] Last Admin: 10/23/18 12:35 Dose: 20 mg Metoprolol Tartrate (Lopressor) 12.5 mg PO BID [facility] Last Admin: 10/23/18 17:14 Dose: 12.5 mg Rosuvastatin Calcium (Crestor) 10 mg PO HS [facility] Last Admin: 10/22/18 22:30 Dose: 10 mg Verapamil HCl (Calan Tab) 60 mg PO DAILY [facility] Last Admin: 10/23/18 10:12 Dose: 60 mg - Labs Labs: 10/22/18 21:12 10/22/18 21:12
--- NOTE | 2018-10-23 22:32 | CARD ---
APPROVED REPORT Date of service: 10/23/2018 EXAM: Two-dimensional and M-mode echocardiogram with Doppler and color Doppler. 2D DIMENSIONS IVSd1.2 (0.7-1.1cm)LVDd5.2 (3.9-5.9cm) LVOT Diameter2.2 (1.8-2.4cm)PWd1.1 (0.7-1.1cm) LA Uvtfhq81 (18-58mL)LVDs3.9 (2.5-4.0cm) FS (%) 25.9 %LVEF (%)50.5 (>50%) LVEF (Nascimento's)51.24 % M-Mode DIMENSIONS Left Atrium (MM)4.40 (2.5-4.0cm)IVSd1.11 (0.7-1.1cm) Aortic Root3.14 (2.2-3.7cm)LVDd5.46 (4.0-5.6cm) Aortic Cusp Exc.0.76 (1.5-2.0cm)PWd0.95 (0.7-1.1cm) FS (%) 26 %LVDs4.06 (2.0-3.8cm) LVEF (%)50 (>50%) Aortic Valve AoV Peak Nosvgnss212.6cm/sAoV VTI79.9cmAO Peak GR.53mmHg LVOT Peak Gikjrnum51.7cm/sLVOT VTI19.08cmAO Mean GR.33mmHg ADRIANA (VMAX)0.63kd2KAO (VTI)0.89cm2 Mitral Valve MV E Wsyjobfp094.8cm/sMV A Ancrfzas225.1cm/sE/A ratio1.1 GLCZ661.42 cm/s TDI Lateral E' Peak V4.16cm/sMedial E' Peak V3.19cm/sE/Lateral E'27.1 E/Medial E'35.4 Tricuspid Valve TR Peak Fuihkbfz292tq/sTR Peak Gr.93ieScBEOV14tyKg LEFT VENTRICLE The left ventricle is normal size. There is mild to moderate asymmetric left ventricular hypertrophy. Left ventricle systolic function is normal. The Ejection Fraction is 55-60%. There is normal LV segmental wall motion. Transmitral Doppler flow pattern is Grade I-abnormal relaxation pattern. There is no ventricular septal defect visualized. RIGHT VENTRICLE The right ventricle is normal size. The right ventricular systolic function is normal. ATRIA The left atrium is mildly dilated. The right atrium size is normal. AORTIC VALVE The aortic valve is moderately to severely sclerotic. The aortic valve is tri-cuspid. No aortic regurgitation is present. There is severe valvular aortic stenosis. Calculated aortic valve area is 0.9 cm2 with maximum pressure gradient of 55 mmHg and mean pressure gradient of 32 mmHg. MITRAL VALVE Mitral annular calcification is mild. There is no evidence of mitral valve prolapse. Mitral regurgitation is mild. MR Rad 0.4 cm TRICUSPID VALVE The tricuspid valve is normal in structure. There is mild tricuspid regurgitation. There is no pulmonary hypertension. PULMONIC VALVE The pulmonic valve is not well visualized. There is no pulmonic valvular regurgitation. GREAT VESSELS The aortic root is normal in size. The ascending aorta is normal in size. The IVC is normal in size and collapses >50% with inspiration. PERICARDIAL EFFUSION There is no pericardial effusion. <Conclusion> There is mild to moderate asymmetric left ventricular hypertrophy. Left ventricle systolic function is normal. The Ejection Fraction is 55-60%. Transmitral Doppler flow pattern is Grade I-abnormal relaxation pattern. There is severe valvular aortic stenosis. Mitral regurgitation is mild. MR Rad 0.4 cm
--- NOTE | 2018-10-23 23:20 | CARD ---
APPROVED REPORT Date of service: 10/22/2018 EKG Measurement Heart [id number] <Conclusion> Sinus rhythm with premature atrial complexes Possible Left atrial enlargement Left ventricular hypertrophy with repolarization abnormality Abnormal ECG
--- NOTE | 2018-10-23 23:59 | PCM.URO ---
Urology Progress Note - General General: Tolerating Diet - Subjective Flank Pain: Yes (Less, R flank) Nausea: No Vomiting: No Voiding Well: Yes Hematuria: No Frequency: No Dsypnea: Yes Chest Pain: No Fever & Chills: No - Objective Lab Studies: Reviewed Lab Results Last 24 Hours: Laboratory Results - last 24 hr 10/22/18 10/23/18 10/23/18 22:23 06:26 07:19 POC Glucose (mg/dL) 234 H 196 H Total Creatine Kinase 55 CK-MB (Mass) 1.40 Troponin I 0.1250 H* 10/23/18 10/23/18 10/23/18 12:04 14:08 16:11 POC Glucose (mg/dL) 140 H 339 H Total Creatine Kinase 59 CK-MB (Mass) 1.79 Troponin I 0.1050 10/23/18 21:10 POC Glucose (mg/dL) 249 H Total Creatine Kinase CK-MB (Mass) Troponin I Intake & Output: Intake & Output 10/23/18 10/23/18 10/24/18 06:59 18:59 06:59 Intake Total 300 Balance 300 Intake: Oral 300 Other: # Voids Urine, Voided 3 2 # Bowel Movements 2 0 Vital Signs: Vital Signs - 24 hr 10/23/18 10/23/18 10/23/18 04:24 07:24 08:46 Temperature 98.1 F 97.7 F Pulse Rate 86 77 88 Respiratory 20 20 Rate Blood Pressure 169/71 H 167/78 H O2 Sat by Pulse 95 98 Oximetry 10/23/18 10/23/18 10/23/18 10:10 10:12 15:00 Temperature 97.8 F Pulse Rate 81 89 Respiratory 20 18 Rate Blood Pressure 131/69 131/69 159/70 H O2 Sat by Pulse 92 L 96 Oximetry - Physical Exam Abdominal Exam: Soft, Non-Tender, Non-Distended Dressing: Dry, Intact Back: No CVA Tenderness Extremities: Normal: Bilateral - Plan Wound Care: Yes Ambulation - Out of Bed: Yes Intake & Output: Yes Additional Information: IMP: stable overall. dyspnea Less. P: Resp rx and P T. Discussed w pt and daughter - Date & Time of Note Date: 10/22/18 Time: 14:30
[2018-10-24] MEDS: MethylPREDNISolone 40 mg Vial IVP SCH ×2 (00:12→13:36)
[2018-10-24 00:32] LABS: INR 1.2; PROTHROMBIN TIME 13.4 SECONDS (9.7-12.2)
[2018-10-24] MEDS: Albuterol-Ipratrop 3 mg / 0.5 (3 ml) UD INH SCH ×4 (01:50→19:31)
[2018-10-24] MEDS: Acetylcysteine 20% Inhal Soln (4ml) INH SCH ×4 (01:50→19:31)
[2018-10-24 02:17] VITALS: RESP 20
[2018-10-24] MEDS: (Novolin R) Insulin Human Regular 100 units/ml vial SC SCH ×4 (07:31→22:49)
[2018-10-24] MEDS ORDERED: Iohexol 350mg/ml 100 ML ONE (09:38)
[2018-10-24] MEDS: Cefepime 1 GM in Sodium Chloride 0.9% 100 ML IVPB SCH ×2 (10:45→18:20)
[2018-10-24] MEDS ORDERED: Verapamil 2 ML ONE (11:33)
[2018-10-24] MEDS ORDERED: Nitroglycerin 50mg in D5W 50 MG/250 ML BOTTLE IV ONE (11:34)
[2018-10-24] MEDS ORDERED: Midazolam 2 MG/2 ML VIAL ONE (11:35)
--- NOTE | 2018-10-24 14:07 | CP.PCM.PN ---
Subjective - Date & Time of Evaluation Date of Evaluation: 10/24/18 Time of Evaluation: 14:04 - Subjective Subjective: Patient s/p Cardiac cath 1. Critical RCA stenosis 99% 2. LAD mid 70% 3. Lt. Main 30-40% 4. Severe Not a candidate for CABG/AVR due to high risk and lung disease Patient needs high risk RCA intervention prior to discharge and then TAVR as out patient Further plan after d/w the patient and the family Objective - Vital Signs/Intake and Output Vital Signs (last 24 hours): Temp Pulse Resp BP Pulse Ox 97.8 F 77 20 134/64 97 10/24/18 07:00 10/24/18 08:08 10/24/18 08:08 10/24/18 08:08 10/24/18 08:08 Intake and Output: 10/24/18 10/24/18 06:59 18:59 Intake Total 300 Output Total 200 Balance 100 - Medications Medications: Current Medications Acetaminophen (Tylenol 325mg Tab) 650 mg PO Q6 PRN PRN Reason: Fever >100.4 F Last Admin: 10/23/18 12:57 Dose: 650 mg Acetylcysteine (Acetylcysteine 20%) 4 ml INH RQ6 [facility] Last Admin: 10/24/18 13:38 Dose: Not Given Albuterol/Ipratropium (Duoneb 3 Mg/0.5 Mg (3 Ml) Ud) 3 ml INH RQ6 [facility] Last Admin: 10/24/18 13:38 Dose: Not Given Aspirin (Aspirin Chewable) 81 mg PO DAILY [facility] Last Admin: 10/24/18 10:44 Dose: Not Given Bisacodyl (Dulcolax) 10 mg [place] ONCE PRN PRN Reason: Constipation Dextrose (Dextrose 50% Inj) 0 ml IV STAT PRN; Protocol PRN Reason: Hypoglycemia Protocol Dextrose (Glutose 15) 0 gm PO ONCE PRN; Protocol PRN Reason: Hypoglycemia Protocol Docusate Sodium (Colace) 100 mg PO TID [facility] Last Admin: 10/24/18 10:44 Dose: Not Given Famotidine (Pepcid) 20 mg PO BID [facility] Last Admin: 10/24/18 10:45 Dose: Not Given Fluticasone/Vilanterol (Breo Ellipta 100-25 Mcg Inh) 1 puff INH RQD [facility] Last Admin: 10/23/18 09:18 Dose: Not Given Glucagon (Glucagen Diagnostic Kit) 0 mg IM STAT PRN; Protocol PRN Reason: Hypoglycemia Protocol Heparin Sodium (Porcine) (Heparin) 5,000 units SC Q8 [facility] Last Admin: 10/23/18 22:02 Dose: 5,000 units Hydromorphone HCl (Dilaudid) 1 mg IVP Q8 PRN PRN Reason: Pain, severe (8-10) Last Admin: 10/23/18 17:15 Dose: 1 mg Cefepime HCl 1 gm/ Sodium (Chloride) 100 mls @ 100 mls/hr IVPB DAILY [facility]; Protocol Last Admin: 10/24/18 10:45 Dose: Not Given Insulin Human Regular (Novolin R) 0 unit SC ACHS [facility]; Protocol Last Admin: 10/24/18 13:36 Dose: Not Given Methylprednisolone (Solu-Medrol) 20 mg IVP Q12H [facility] Last Admin: 10/24/18 13:36 Dose: Not Given Metoprolol Tartrate (Lopressor) 12.5 mg PO BID [facility] Last Admin: 10/24/18 10:44 Dose: Not Given Rosuvastatin Calcium (Crestor) 10 mg PO HS [facility] Last Admin: 10/23/18 22:01 Dose: 10 mg Verapamil HCl (Calan Tab) 60 mg PO DAILY [facility] Last Admin: 10/24/18 10:44 Dose: Not Given - Labs Labs: 10/22/18 21:12 10/22/18 21:12 PT 13.4 SECONDS (9.7-12.2) H 10/23/18 23:58 INR 1.2 10/23/18 23:58 APTT 33 SECONDS (21-34) 10/23/18 23:58
[2018-10-24] MEDS: HYDROmorphone 1 mg/ml ISec IVP PRN (18:20)
--- NOTE | 2018-10-24 19:22 | PCM.URO ---
Urology Progress Note - General General: Tolerating Diet - Subjective Abdominal Pain: Yes (mild RUQ and R flank) Flank Pain: Yes Nausea: No Vomiting: No Voiding Well: Yes Dysuria: No Hematuria: No Urinary Urgency: No Frequency: No Good Stream: Yes Stone Passed: No Dsypnea: Yes Chest Pain: Yes Fever & Chills: No - Objective Lab Studies: Reviewed Lab Results Last 24 Hours: Laboratory Results - last 24 hr 10/23/18 10/23/18 10/24/18 21:10 23:58 06:43 PT 13.4 H INR 1.2 APTT 33 POC Glucose (mg/dL) 249 H 244 H 10/24/18 10/24/18 12:14 16:20 PT INR APTT POC Glucose (mg/dL) 235 H 197 H Intake & Output: Intake & Output 10/24/18 10/24/18 10/25/18 06:59 18:59 06:59 Intake Total 300 Output Total 200 Balance 100 Intake: Oral 300 Output: Urine 200 Urine, Voided 200 Other: # Voids Urine, Voided 2 # Bowel Movements 0 Vital Signs: Vital Signs - 24 hr 10/23/18 10/24/18 10/24/18 23:25 00:01 03:56 Temperature 97.5 F L Pulse Rate 74 81 76 Respiratory 20 Rate Blood Pressure 147/69 O2 Sat by Pulse 95 Oximetry 10/24/18 10/24/18 10/24/18 04:20 07:00 07:15 Temperature 97.8 F 97.8 F Pulse Rate 72 78 76 Respiratory 20 18 20 Rate Blood Pressure 160/76 H 169/78 H 169/78 H O2 Sat by Pulse 95 96 Oximetry 10/24/18 10/24/18 10/24/18 07:34 08:08 15:40 Temperature 97.8 F Pulse Rate 77 77 74 Respiratory 20 20 Rate Blood Pressure 134/64 119/56 L O2 Sat by Pulse 97 99 Oximetry 10/24/18 15:45 Temperature Pulse Rate 78 Respiratory Rate Blood Pressure O2 Sat by Pulse Oximetry - Physical Exam Abdominal Exam: Soft, Non-Tender, Non-Distended (Had BM yesterday) Dressing: Dry, Intact Back: No CVA Tenderness Extremities: Normal: Bilateral - Plan Wound Care: Yes Ambulation - Out of Bed: Yes Intake & Output: Yes Additional Information: IMP: R renal cell carcinoma, stable p nehrectomy. COPD. UT. CAD. Aortic stenosis. P/Rec: Wound care. Cardiologic Rx. Pulmonary Rx. - Date & Time of Note Date: 10/24/18 Time: 14:15
[2018-10-25] MEDS: MethylPREDNISolone 40 mg Vial IVP SCH ×2 (01:06→13:22)
[2018-10-25] MEDS: Acetylcysteine 20% Inhal Soln (4ml) INH SCH ×4 (01:50→19:25)
[2018-10-25] MEDS: Albuterol-Ipratrop 3 mg / 0.5 (3 ml) UD INH SCH ×4 (01:50→19:25)
[2018-10-25] MEDS: (Novolin R) Insulin Human Regular 100 units/ml vial SC SCH ×5 (08:03→21:46)
[2018-10-25] MEDS: HYDROmorphone 1 mg/ml ISec IVP PRN ×2 (08:03→21:45)
[2018-10-25] MEDS: Cefepime 1 GM in Sodium Chloride 0.9% 100 ML IVPB SCH (10:35)
[2018-10-25] MEDS: Fluticasone-Vilanterol 100/25mcg Diskus INH SCH (11:11)
--- NOTE | 2018-10-25 21:11 | CP.PCM.PN ---
Subjective - Date & Time of Evaluation Date of Evaluation: 10/25/18 Time of Evaluation: 17:15 - Subjective Subjective: Patient seen and evaluated Denies chest pain Physical Examination - Physical Exam Head: Positive for: Atraumatic, Normocephalic Pupils: Positive for: PERRL Extroacular Muscles: Positive for: EOMI Conjunctiva: Positive for: Normal Respiratory/Chest: Positive for: Decreased Breath Sounds Cardiovascular: Positive for: Murmurs (crescendo decrescendo murmur) Abdomen: Positive for: Tenderness (right flank surgical site). Negative for: Distention, Peritoneal Signs Upper Extremity: Positive for: Normal Inspection, NORMAL PULSES, Capillary Refill < 2s Lower Extremity: Positive for: Normal Inspection. Negative for: Edema, CALF TENDERNESS Skin: Positive for: Warm, Dry, Normal Color Psychiatric: Positive for: Alert, Oriented x 3 Assessment/Plan - Assessment and Plan (Free Text) Assessment: 78 y/o female with PMHx of AAA, COPD, asthma, aortic stenosis, DM2, and HTN is currently s/p open radical nephrectomy Neuro -patient AAOx3 -no acute issues CV -HTN - resumed home med HCTZ/losartan 12.5/50 mg due to increasing BP (on monitor during rounds SBP 170s and was 130s this morning 10/17) -continue with home med crestor 10 mg daily -patient with tachycardia up to 120s max. Monitor after medication management completed. -patient with severe - stable -monitor vitals Pulm -COPD/asthma -continue with albuterol but make scheduled not PRN -patient on 4L NC -target O2 > 92% -continue with daily ABG in light of patient's respiratory status -Incentive spirometer, chest PT, encourage ambulation/OOB to chair GI -home pepcid 20 mg PO BID switched from IV due to resolved nausea -liquid diet upgraded to diabetic diet Renal -s/p open right radical nephrectomy POD2. EBL < 100 mL. 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 Tylenol PRN on board. -antiemetics PRN -hand to be d/kory today, 10/[address] Chris Nolan's recs Endo -DM2 - ISS -> consider changing low to medium dose due to POC glucose increasing to 200s last 24h and possible increase in appetite after diet change -accuchtung ACHS -hypoglycemic protocol ID -no acute issues Heme -no acute issues DVT ppx: on hold due to risk of post-op bleeding GI ppx: pepcid 20 mg IV daily Diet: Diabetic Patient s/p Cardiac cath 1. Critical RCA stenosis 99% 2. LAD mid 70% 3. Lt. Main 30-40% 4. Severe Not a candidate for CABG/AVR due to high risk and lung disease Patient needs high risk RCA intervention prior to discharge and then TAVR as out patient D/W with the patient, her sister, PMD and Dr. Krueger BAV and RCA stenting in [facility] Saturday/Saturday pending Insurance approval TAVR as out patient Objective - Vital Signs/Intake and Output Vital Signs (last 24 hours): Temp Pulse Resp BP Pulse Ox 98.6 F 72 20 122/65 97 10/25/18 15:00 10/25/18 15:15 10/25/18 15:00 10/25/18 15:00 10/25/18 15:00 - Medications Medications: Current Medications Acetaminophen (Tylenol 325mg Tab) 650 mg PO Q6 PRN PRN Reason: Fever >100.4 F Last Admin: 10/23/18 12:57 Dose: 650 mg Acetylcysteine (Acetylcysteine 20%) 4 ml INH RQ6 [facility] Last Admin: 10/25/18 19:25 Dose: 4 ml Albuterol/Ipratropium (Duoneb 3 Mg/0.5 Mg (3 Ml) Ud) 3 ml INH RQ6 [facility] Last Admin: 10/25/18 19:25 Dose: 3 ml Aspirin (Aspirin Chewable) 81 mg PO DAILY [facility] Last Admin: 10/25/18 10:36 Dose: 81 mg Bisacodyl (Dulcolax) 10 mg CO ONCE PRN PRN Reason: Constipation Dextrose (Dextrose 50% Inj) 0 ml IV STAT PRN; Protocol PRN Reason: Hypoglycemia Protocol Dextrose (Glutose 15) 0 gm PO ONCE PRN; Protocol PRN Reason: Hypoglycemia Protocol Docusate Sodium (Colace) 100 mg PO TID [facility] Last Admin: 10/25/18 18:44 Dose: 100 mg Famotidine (Pepcid) 20 mg PO BID [facility] Last Admin: 10/25/18 18:44 Dose: 20 mg Fluticasone/Vilanterol (Breo Ellipta 100-25 Mcg Inh) 1 puff INH RQD [facility] Last Admin: 10/25/18 11:11 Dose: 1 puff Glucagon (Glucagen Diagnostic Kit) 0 mg IM STAT PRN; Protocol PRN Reason: Hypoglycemia Protocol Heparin Sodium (Porcine) (Heparin) 5,000 units SC Q8 [facility] Last Admin: 10/25/18 13:22 Dose: 5,000 units Hydromorphone HCl (Dilaudid) 1 mg IVP Q8 PRN PRN Reason: Pain, severe (8-10) Last Admin: 10/25/18 08:03 Dose: 1 mg Cefepime HCl 1 gm/ Sodium (Chloride) 100 mls @ 100 mls/hr IVPB DAILY [facility]; Protocol Last Admin: 10/25/18 10:35 Dose: 100 mls/hr Insulin Human Regular (Novolin R) 0 unit SC ACHS [facility]; Protocol Last Admin: 10/25/18 17:41 Dose: Not Given Methylprednisolone (Solu-Medrol) 20 mg IVP Q12H [facility] Last Admin: 10/25/18 13:22 Dose: 20 mg Metoprolol Tartrate (Lopressor) 12.5 mg PO BID [facility] Last Admin: 10/25/18 18:44 Dose: 12.5 mg Rosuvastatin Calcium (Crestor) 10 mg PO HS [facility] Last Admin: 10/24/18 22:11 Dose: 10 mg Verapamil HCl (Calan Tab) 40 mg PO BID [facility] Last Admin: 10/25/18 18:44 Dose: 40 mg - Labs Labs: 10/22/18 21:12 10/22/18 21:12 PT 13.4 SECONDS (9.7-12.2) H 10/23/18 23:58 INR 1.2 10/23/18 23:58 APTT 33 SECONDS (21-34) 10/23/18 23:58
--- NOTE | 2018-10-25 23:56 | CP.PCM.PN ---
Subjective - Date & Time of Evaluation Date of Evaluation: 10/25/18 Time of Evaluation: 23:56 - Subjective Subjective: Patient is sitting up comfortably. She has a minimal cough, thick yellow mucus still present. She is otherwise feeling well. I spoke to the software test specialist as well as urologist in details about the patient's prognosis and condition. Patient is currently agreeing for possible intervention for the RCA occlusion, and possible AVR We will continue the current management. Objective - Vital Signs/Intake and Output Vital Signs (last 24 hours): Temp Pulse Resp BP Pulse Ox 98.6 F 72 20 122/65 97 10/25/18 15:00 10/25/18 15:15 10/25/18 15:00 10/25/18 15:00 10/25/18 15:00 - Medications Medications: Current Medications Acetaminophen (Tylenol 325mg Tab) 650 mg PO Q6 PRN PRN Reason: Fever >100.4 F Last Admin: 10/23/18 12:57 Dose: 650 mg Acetylcysteine (Acetylcysteine 20%) 4 ml INH RQ6 [facility] Last Admin: 10/25/18 19:25 Dose: 4 ml Albuterol/Ipratropium (Duoneb 3 Mg/0.5 Mg (3 Ml) Ud) 3 ml INH RQ6 [facility] Last Admin: 10/25/18 19:25 Dose: 3 ml Aspirin (Aspirin Chewable) 81 mg PO DAILY [facility] Last Admin: 10/25/18 10:36 Dose: 81 mg Bisacodyl (Dulcolax) 10 mg RI ONCE PRN PRN Reason: Constipation Dextrose (Dextrose 50% Inj) 0 ml IV STAT PRN; Protocol PRN Reason: Hypoglycemia Protocol Dextrose (Glutose 15) 0 gm PO ONCE PRN; Protocol PRN Reason: Hypoglycemia Protocol Docusate Sodium (Colace) 100 mg PO TID [facility] Last Admin: 10/25/18 18:44 Dose: 100 mg Famotidine (Pepcid) 20 mg PO BID [facility] Last Admin: 10/25/18 18:44 Dose: 20 mg Fluticasone/Vilanterol (Breo Ellipta 100-25 Mcg Inh) 1 puff INH RQD [facility] Last Admin: 10/25/18 11:11 Dose: 1 puff Glucagon (Glucagen Diagnostic Kit) 0 mg IM STAT PRN; Protocol PRN Reason: Hypoglycemia Protocol Heparin Sodium (Porcine) (Heparin) 5,000 units SC Q8 [facility] Last Admin: 10/25/18 21:45 Dose: 5,000 units Hydromorphone HCl (Dilaudid) 1 mg IVP Q8 PRN PRN Reason: Pain, severe (8-10) Last Admin: 10/25/18 21:45 Dose: 1 mg Cefepime HCl 1 gm/ Sodium (Chloride) 100 mls @ 100 mls/hr IVPB DAILY [facility]; Protocol Last Admin: 10/25/18 10:35 Dose: 100 mls/hr Insulin Human Regular (Novolin R) 0 unit SC ACHS [facility]; Protocol Last Admin: 10/25/18 21:46 Dose: 3 units Methylprednisolone (Solu-Medrol) 20 mg IVP Q12H [facility] Last Admin: 10/25/18 13:22 Dose: 20 mg Metoprolol Tartrate (Lopressor) 12.5 mg PO BID [facility] Last Admin: 10/25/18 18:44 Dose: 12.5 mg Rosuvastatin Calcium (Crestor) 10 mg PO HS [facility] Last Admin: 10/25/18 21:44 Dose: 10 mg Verapamil HCl (Calan Tab) 40 mg PO BID [facility] Last Admin: 10/25/18 18:44 Dose: 40 mg - Labs Labs: 10/22/18 21:12 10/22/18 21:12 PT 13.4 SECONDS (9.7-12.2) H 10/23/18 23:58 INR 1.2 10/23/18 23:58 APTT 33 SECONDS (21-34) 10/23/18 23:58
[2018-10-26] MEDS: MethylPREDNISolone 40 mg Vial IVP SCH ×2 (00:44→12:28)
[2018-10-26] MEDS: Albuterol-Ipratrop 3 mg / 0.5 (3 ml) UD INH SCH ×4 (01:45→19:16)
[2018-10-26] MEDS: Acetylcysteine 20% Inhal Soln (4ml) INH SCH ×4 (01:45→19:16)
[2018-10-26] MEDS: Fluticasone-Vilanterol 100/25mcg Diskus INH SCH (07:45)
[2018-10-26] MEDS: (Novolin R) Insulin Human Regular 100 units/ml vial SC SCH ×4 (08:03→22:26)
--- NOTE | 2018-10-26 08:23 | CP.PCM.PN ---
Subjective - Date & Time of Evaluation Date of Evaluation: 10/26/18 Time of Evaluation: 08:20 - Subjective Subjective: The patient is morning sitting up comfortably. She is not in any distress. Had a BM yesterday. She is making good urine output today. Minimal cough noted. Thick yellow mucus present. She denies any chest pain. On examination: Vital signs stable. Saturation is 98% with supplemental oxygen. Chest good air entry, expiratory wheezing noted. Regular hs noted. Abdomen soft nontender. Extremities 1+ pedal edema Labs reviewed I ordered another labs today. Assessment and recommendation: 78-year-old female with a history of advanced atherosclerotic heart disease including AAA in the past, multiple vessel heart disease, aortic valve stenosis. Patient recently underwent right nephrectomy for renal cell tumor stable clinically. 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 as well as possible AVR We will possibly discharge the patient tomorrow as per the cardiology for furt her management Objective - Vital Signs/Intake and Output Vital Signs (last 24 hours): Temp Pulse Resp BP Pulse Ox 97.9 F 69 20 136/72 96 10/26/18 04:39 10/26/18 04:39 10/26/18 04:39 10/26/18 04:39 10/26/18 04:39 - Medications Medications: Current Medications Acetaminophen (Tylenol 325mg Tab) 650 mg PO Q6 PRN PRN Reason: Fever >100.4 F Last Admin: 10/23/18 12:57 Dose: 650 mg Acetylcysteine (Acetylcysteine 20%) 4 ml INH RQ6 [facility] Last Admin: 10/26/18 01:45 Dose: Not Given Albuterol/Ipratropium (Duoneb 3 Mg/0.5 Mg (3 Ml) Ud) 3 ml INH RQ6 [facility] Last Admin: 10/26/18 01:45 Dose: Not Given Aspirin (Aspirin Chewable) 81 mg PO DAILY [facility] Last Admin: 10/25/18 10:36 Dose: 81 mg Bisacodyl (Dulcolax) 10 mg VT ONCE PRN PRN Reason: Constipation Dextrose (Dextrose 50% Inj) 0 ml IV STAT PRN; Protocol PRN Reason: Hypoglycemia Protocol Dextrose (Glutose 15) 0 gm PO ONCE PRN; Protocol PRN Reason: Hypoglycemia Protocol Docusate Sodium (Colace) 100 mg PO TID [facility] Last Admin: 10/25/18 18:44 Dose: 100 mg Famotidine (Pepcid) 20 mg PO BID [facility] Last Admin: 10/25/18 18:44 Dose: 20 mg Fluticasone/Vilanterol (Breo Ellipta 100-25 Mcg Inh) 1 puff INH RQD [facility] Last Admin: 10/25/18 11:11 Dose: 1 puff Glucagon (Glucagen Diagnostic Kit) 0 mg IM STAT PRN; Protocol PRN Reason: Hypoglycemia Protocol Heparin Sodium (Porcine) (Heparin) 5,000 units SC Q8 [facility] Last Admin: 10/26/18 05:28 Dose: 5,000 units Cefepime HCl 1 gm/ Sodium (Chloride) 100 mls @ 100 mls/hr IVPB DAILY [facility]; Protocol Last Admin: 10/25/18 10:35 Dose: 100 mls/hr Insulin Human Regular (Novolin R) 0 unit SC ACHS [facility]; Protocol Last Admin: 10/26/18 08:03 Dose: 3 units Methylprednisolone (Solu-Medrol) 20 mg IVP Q12H [facility] Last Admin: 10/26/18 00:44 Dose: 20 mg Metoprolol Tartrate (Lopressor) 12.5 mg PO BID [facility] Last Admin: 10/25/18 18:44 Dose: 12.5 mg Rosuvastatin Calcium (Crestor) 10 mg PO HS [facility] Last Admin: 10/25/18 21:44 Dose: 10 mg Verapamil HCl (Calan Tab) 40 mg PO BID [facility] Last Admin: 10/25/18 18:44 Dose: 40 mg - Labs Labs: 10/22/18 21:12 10/22/18 21:12 PT 13.4 SECONDS (9.7-12.2) H 10/23/18 23:58 INR 1.2 10/23/18 23:58 APTT 33 SECONDS (21-34) 10/23/18 23:58
[2018-10-26] MEDS: Cefepime 1 GM in Sodium Chloride 0.9% 100 ML IVPB SCH (10:23)
[2018-10-26 10:54] LABS: BASO # 0.1 K/uL (0.0-0.2); BASO % 0.5 % (0.0-2.0); EOS # 0.1 K/uL (0.0-0.7); EOS % 0.5 % (0.0-4.0); HEMOGLOBIN 10.9 g/dL (11.0-16.0); LYMPH # 1.4 K/uL (1.0-4.3); LYMPH % 10.5 % (20.0-40.0); MEAN CELL VOLUME 93.9 fL (81.0-99.0); MEAN CORPUSCULAR HEMOGLOBIN 30.5 pg (27.0-31.0); MEAN CORPUSCULAR HGB CONC 32.4 g/dL (33.0-37.0); MEAN PLATELET VOLUME 9.9 fL (7.2-11.7); MONO # 0.9 K/uL (0.0-0.8); MONO % 6.9 % (0.0-10.0); NEUT # 10.7 K/uL (1.8-7.0); NEUT % 81.6 % (50.0-75.0); RBC 3.57 Mil/uL (3.80-5.20); RED CELL DISTRIBUTION WIDTH 14.5 % (11.5-14.5); WHITE BLOOD COUNT 13.1 K/uL (4.8-10.8)
[2018-10-26 11:20] LABS: ALB/GLOB RATIO 1.2 (1.0-2.1); ALBUMIN 3.2 g/dL (3.5-5.0); ALT/SGPT 48 U/L (9-52); AST/SGOT 36 U/L (14-36); BLOOD UREA NITROGEN 22 mg/dL (7-17); CALCIUM 8.3 mg/dl (8.6-10.4); GFR NON-AFRICAN AMERICAN > 60
[2018-10-26] MEDS: HYDROmorphone 0.5 mg/0.5 ml ISec IVP PRN ×2 (14:34→22:25)
--- NOTE | 2018-10-26 20:03 | CP.PCM.PN ---
Subjective - Date & Time of Evaluation Date of Evaluation: 10/26/18 Time of Evaluation: 20:02 - Subjective Subjective: Patient seen and evaluated Denies chest pain Physical Examination - Physical Exam Head: Positive for: Atraumatic, Normocephalic Pupils: Positive for: PERRL Extroacular Muscles: Positive for: EOMI Conjunctiva: Positive for: Normal Respiratory/Chest: Positive for: Decreased Breath Sounds Cardiovascular: Positive for: Murmurs (crescendo decrescendo murmur) Abdomen: Positive for: Tenderness (right flank surgical site). Negative for: Distention, Peritoneal Signs Upper Extremity: Positive for: Normal Inspection, NORMAL PULSES, Capillary Refill < 2s Lower Extremity: Positive for: Normal Inspection. Negative for: Edema, CALF TENDERNESS Skin: Positive for: Warm, Dry, Normal Color Psychiatric: Positive for: Alert, Oriented x 3 Assessment/Plan - Assessment and Plan (Free Text) Assessment: 78 y/o female with PMHx of AAA, COPD, asthma, aortic stenosis, DM2, and HTN is currently s/p open radical nephrectomy Neuro -patient AAOx3 -no acute issues CV -HTN - resumed home med HCTZ/losartan 12.5/50 mg due to increasing BP (on monitor during rounds SBP 170s and was 130s this morning 10/17) -continue with home med crestor 10 mg daily -patient with tachycardia up to 120s max. Monitor after medication management completed. -patient with severe - stable -monitor vitals Pulm -COPD/asthma -continue with albuterol but make scheduled not PRN -patient on 4L NC -target O2 > 92% -continue with daily ABG in light of patient's respiratory status -Incentive spirometer, chest PT, encourage ambulation/OOB to chair GI -home pepcid 20 mg PO BID switched from IV due to resolved nausea -liquid diet upgraded to diabetic diet Renal -s/p open right radical nephrectomy POD2. EBL < 100 mL. 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 Tylenol PRN on board. -antiemetics PRN -hand to be d/kory today, 10/[address] Chris Nolan's recs Endo -DM2 - ISS -> consider changing low to medium dose due to POC glucose increasing to 200s last 24h and possible increase in appetite after diet change -accfaheem ACHS -hypoglycemic protocol ID -no acute issues Heme -no acute issues DVT ppx: on hold due to risk of post-op bleeding GI ppx: pepcid 20 mg IV daily Diet: Diabetic Patient s/p Cardiac cath 1. Critical RCA stenosis 99% 2. LAD mid 70% 3. Lt. Main 30-40% 4. Severe Not a candidate for CABG/AVR due to high risk and lung disease Patient needs high risk RCA intervention prior to discharge and then TAVR as out patient D/W with the patient, her sister, PMD and Dr. Krueger BAV and RCA stenting in [facility] Saturday/Saturday pending Insurance approval TAVR as out patient Objective - Vital Signs/Intake and Output Vital Signs (last 24 hours): Temp Pulse Resp BP Pulse Ox 98.4 F 67 20 119/64 96 10/26/18 15:00 10/26/18 15:00 10/26/18 15:00 10/26/18 15:00 10/26/18 15:00 - Medications Medications: Current Medications Acetaminophen (Tylenol 325mg Tab) 650 mg PO Q6 PRN PRN Reason: Fever >100.4 F Last Admin: 10/26/18 10:26 Dose: 650 mg Acetylcysteine (Acetylcysteine 20%) 4 ml INH RQ6 [facility] Last Admin: 10/26/18 19:16 Dose: 4 ml Albuterol/Ipratropium (Duoneb 3 Mg/0.5 Mg (3 Ml) Ud) 3 ml INH RQ6 [facility] Last Admin: 10/26/18 19:16 Dose: 3 ml Aspirin (Aspirin Chewable) 81 mg PO DAILY [facility] Last Admin: 10/26/18 10:26 Dose: 81 mg Bisacodyl (Dulcolax) 10 mg LA ONCE PRN PRN Reason: Constipation Dextrose (Dextrose 50% Inj) 0 ml IV STAT PRN; Protocol PRN Reason: Hypoglycemia Protocol Dextrose (Glutose 15) 0 gm PO ONCE PRN; Protocol PRN Reason: Hypoglycemia Protocol Docusate Sodium (Colace) 100 mg PO TID [facility] Last Admin: 10/26/18 18:06 Dose: 100 mg Famotidine (Pepcid) 20 mg PO BID [facility] Last Admin: 10/26/18 18:06 Dose: 20 mg Fluticasone/Vilanterol (Breo Ellipta 100-25 Mcg Inh) 1 puff INH RQD [facility] Last Admin: 10/26/18 07:45 Dose: 1 puff Glucagon (Glucagen Diagnostic Kit) 0 mg IM STAT PRN; Protocol PRN Reason: Hypoglycemia Protocol Heparin Sodium (Porcine) (Heparin) 5,000 units SC Q8 [facility] Last Admin: 10/26/18 14:33 Dose: 5,000 units Hydromorphone HCl (Dilaudid) 0.5 mg IVP Q8H PRN PRN Reason: Pain, severe (8-10) Last Admin: 10/26/18 14:34 Dose: 0.5 mg Cefepime HCl 1 gm/ Sodium (Chloride) 100 mls @ 100 mls/hr IVPB DAILY [facility]; Protocol Last Admin: 10/26/18 10:23 Dose: 100 mls/hr Insulin Human Regular (Novolin R) 0 unit SC ACHS [facility]; Protocol Last Admin: 10/26/18 18:07 Dose: Not Given Methylprednisolone (Solu-Medrol) 20 mg IVP Q12H [facility] Last Admin: 10/26/18 12:28 Dose: 20 mg Metoprolol Tartrate (Lopressor) 12.5 mg PO BID [facility] Last Admin: 10/26/18 18:06 Dose: 12.5 mg Rosuvastatin Calcium (Crestor) 10 mg PO HS [facility] Last Admin: 10/25/18 21:44 Dose: 10 mg Verapamil HCl (Calan Tab) 40 mg PO BID [facility] Last Admin: 10/26/18 18:09 Dose: 40 mg - Labs Labs: 10/26/18 10:44 10/26/18 10:44 PT 13.4 SECONDS (9.7-12.2) H 10/23/18 23:58 INR 1.2 10/23/18 23:58 APTT 33 SECONDS (21-34) 10/23/18 23:58
--- NOTE | 2018-10-26 20:52 | CARDCATH ---
PROCEDURE DATE: 10/24/2018 PROCEDURES: 1. Left heart catheterization. 2. Coronary angiogram. REFERRING PHYSICIANS: 1. Elvis Allison MD. 2. Carroll Nolan MD. CLINICAL INDICATIONS: 1. Chest pain. 2. Non-ST elevation myocardial infarction. 3. Severe aortic stenosis. 4. Hypertension. 5. Peripheral arterial disease. 6. Chronic obstructive lung disease. BRIEF CLINICAL HISTORY: Mere Elizondo is an 78-year-old female with severe vascular disease, chronic obstructive lung disease, underwent nephrectomy for renal cell carcinoma. Post-nephrectomy, the patient suffered a non-ST elevation myocardial infarction and CHF. Subsequently, the patient was scheduled for cardiac catheterization for further assessment. DESCRIPTION OF PROCEDURE: After informed consent, the patient was prepped and draped in the usual sterile fashion. A 2% lidocaine was given in the right wrist for local anesthesia. Using micropuncture technique, 6-Croatian sheath was introduced into the right radial artery. A JR-4 diagnostic catheter engaged into right coronary artery. Contrast injected and right coronary angiogram was done. The catheter was exchanged to 6-Croatian Pinckney catheter. Pinckney catheter engaged into left main coronary artery. Contrast injected and left coronary angiogram was done. Even though the patient was hypoxemic during the procedure, the patient tolerated well with oxygen supplementation. Post-procedure, Terumo radial band applied to right wrist with excellent hemostasis. FINDINGS: 1. Left main coronary artery has a 30% ostial concentric stenosis. Mid and distal left main is patent. 2. Left circumflex coronary artery is patent. 3. Proximal LAD and distal LAD is patent. Mid LAD has a 70% concentric stenosis. Diagonal branches are patent. 4. Right coronary artery is dominant. Significant disease in the right coronary artery. Proximal right coronary artery has a 95% stenosis. Mid right coronary artery has a tortous 95% stenosis. Distal right coronary artery and PDA has a 99% ostial lesions. 5. The patient has severe aortic stenosis by echocardiogram. IMPRESSION: 1. Significant coronary artery disease as described above. 2. Severe aortic stenosis. RECOMMENDATIONS: The patient is an 78-year-old, has severe vascular and lung disease, very high risk for coronary artery bypass grafting and surgical aortic valve replacement. Recommend intervention of the right coronary artery followed by TAVR as an outpatient. Medardo Chatman MD [facility] # [id number]
--- NOTE | 2018-10-26 21:21 | PCM.URO ---
Urology Progress Note - Subjective Flank Pain: Yes (normal post op / full note and summary dictated/ will encourage pt to ) Voiding Well: Yes (recommendations of dr watt and dr cooper) - Objective Lab Results Last 24 Hours: Laboratory Results - last 24 hr 10/25/18 10/26/18 10/26/18 17:13 01:49 07:00 WBC RBC Hgb Hct MCV MCH MCHC RDW Plt Count MPV Neut % (Auto) Lymph % (Auto) [place] % (Auto) Eos % (Auto) Baso % (Auto) Neut # (Auto) Lymph # (Auto) [place] # (Auto) Eos # (Auto) Baso # (Auto) Sodium Potassium Chloride Carbon Dioxide Anion Gap BUN Creatinine Est GFR ( Amer) Est GFR (Non-Af Amer) POC Glucose (mg/dL) 149 H 158 H 211 H Random Glucose Calcium Phosphorus Magnesium Total Bilirubin AST ALT Alkaline Phosphatase Total Protein Albumin Globulin Albumin/Globulin Ratio 10/26/18 10/26/18 10/26/18 10:44 10:44 11:07 WBC 13.1 H RBC 3.57 L Hgb 10.9 L Hct 33.5 L MCV 93.9 MCH 30.5 MCHC 32.4 L RDW 14.5 Plt Count 273 MPV 9.9 Neut % (Auto) 81.6 H Lymph % (Auto) 10.5 L [place] % (Auto) 6.9 Eos % (Auto) 0.5 Baso % (Auto) 0.5 Neut # (Auto) 10.7 H Lymph # (Auto) 1.4 [place] # (Auto) 0.9 H Eos # (Auto) 0.1 Baso # (Auto) 0.1 Sodium 135 Potassium 4.6 Chloride 101 Carbon Dioxide 31 H Anion Gap 8 L BUN 22 H Creatinine 0.8 Est GFR ( Amer) > 60 Est GFR (Non-Af Amer) > 60 POC Glucose (mg/dL) 220 H Random Glucose 214 H D Calcium 8.3 L Phosphorus 3.3 Magnesium 2.2 Total Bilirubin 0.5 AST 36 D ALT 48 Alkaline Phosphatase 60 Total Protein 5.9 L Albumin 3.2 L Globulin 2.7 Albumin/Globulin Ratio 1.2 Vital Signs: Vital Signs - 24 hr 10/25/18 10/25/18 10/26/18 23:20 23:55 03:53 Temperature 97.9 F Pulse Rate 63 67 61 Respiratory 20 Rate Blood Pressure 127/70 O2 Sat by Pulse 99 Oximetry 10/26/18 10/26/18 10/26/18 04:39 07:00 07:21 Temperature 97.9 F 98.0 F Pulse Rate 69 62 64 Respiratory 20 20 Rate Blood Pressure 136/72 123/67 O2 Sat by Pulse 96 97 Oximetry 10/26/18 10/26/18 09:43 15:00 Temperature 98.4 F Pulse Rate 64 67 Respiratory 20 20 Rate Blood Pressure 119/64 O2 Sat by Pulse 96 Oximetry
[2018-10-27] MEDS: MethylPREDNISolone 40 mg Vial IVP SCH ×2 (02:44→11:36)
[2018-10-27] MEDS: Albuterol-Ipratrop 3 mg / 0.5 (3 ml) UD INH SCH (07:20)
[2018-10-27] MEDS: Acetylcysteine 20% Inhal Soln (4ml) INH SCH ×4 (07:20→21:05)
[2018-10-27] MEDS: HYDROmorphone 0.5 mg/0.5 ml ISec IVP PRN ×2 (09:06→20:03)
[2018-10-27] MEDS: Cefepime 1 GM in Sodium Chloride 0.9% 100 ML IVPB SCH (09:07)
[2018-10-27] MEDS: (Novolin R) Insulin Human Regular 100 units/ml vial SC SCH ×4 (09:07→21:31)
[2018-10-27] MEDS: Fluticasone-Vilanterol 100/25mcg Diskus INH SCH (09:08)
--- NOTE | 2018-10-27 12:00 | PCM.URO ---
Urology Progress Note - General General: No Complaints, Tolerating Diet - Subjective Abdominal Pain: No Flank Pain: No Nausea: No Vomiting: No Voiding Well: Yes Hematuria: No Dsypnea: Yes (much less) Chest Pain: No Fever & Chills: No Other: ambulated in [place] - Objective Lab Results Last 24 Hours: Laboratory Results - last 24 hr 10/26/18 10/26/18 10/27/18 17:01 21:29 06:32 POC Glucose (mg/dL) 162 H 254 H 236 H Vital Signs: Vital Signs - 24 hr 10/26/18 10/26/18 10/27/18 15:00 23:21 01:43 Temperature 98.4 F 97.7 F Pulse Rate 67 71 63 Respiratory 20 20 Rate Blood Pressure 119/64 137/77 O2 Sat by Pulse 96 100 Oximetry 10/27/18 10/27/18 08:41 09:19 Temperature Pulse Rate 71 71 Respiratory 20 Rate Blood Pressure O2 Sat by Pulse Oximetry - Physical Exam Abdominal Exam: Soft, Non-Tender, Non-Distended Wound: Clean Dressing: Intact Back: No CVA Tenderness - Plan Wound Care: Yes Ambulation - Out of Bed: Yes Additional Information: IMP: improving overall. Renall carcinoma. CAD. COPD. Aortic stenosis. P: as per cardiology and pulm med. Discussed w pt and family - Date & Time of Note Date: 10/27/18 Time: 12:00
--- NOTE | 2018-10-27 18:09 | CP.PCM.PN ---
Subjective - Date & Time of Evaluation Date of Evaluation: 10/27/18 Time of Evaluation: 18:08 - Subjective Subjective: Patient this morning was concerned about the abdominal pain. But she was comfortable. Using the nasal cannula. Less cough noted. Tolerating the oxygen. On examination: Vital signs good Chest bilateral good air entry Minimal expiratory wheezing noted No abdominal pain, but postoperative pain noted. I explained to the patient that she will be possibly transferred to the [facility] [place] stent placement. Patient is agreeing. Awaiting for transfer. Meanwhile we will continue the antibiotic. Taper the corticosteroid. Oxygen. We will follow the patient Objective - Vital Signs/Intake and Output Vital Signs (last 24 hours): Temp Pulse Resp BP Pulse Ox 97.9 F 74 20 124/62 96 10/27/18 15:00 10/27/18 16:00 10/27/18 15:00 10/27/18 15:00 10/27/18 15:00 - Medications Medications: Current Medications Acetaminophen (Tylenol 325mg Tab) 650 mg PO Q6 PRN PRN Reason: Fever >100.4 F Last Admin: 10/26/18 10:26 Dose: 650 mg Acetylcysteine (Acetylcysteine 20%) 4 ml INH RQ6 [facility] Last Admin: 10/27/18 14:01 Dose: Not Given Aspirin (Aspirin Chewable) 81 mg PO DAILY [facility] Last Admin: 10/27/18 09:07 Dose: 81 mg Bisacodyl (Dulcolax) 10 mg AL ONCE PRN PRN Reason: Constipation Dextrose (Dextrose 50% Inj) 0 ml IV STAT PRN; Protocol PRN Reason: Hypoglycemia Protocol Dextrose (Glutose 15) 0 gm PO ONCE PRN; Protocol PRN Reason: Hypoglycemia Protocol Docusate Sodium (Colace) 100 mg PO TID [facility] Last Admin: 10/27/18 17:26 Dose: 100 mg Famotidine (Pepcid) 20 mg PO BID [facility] Last Admin: 10/27/18 17:26 Dose: 20 mg Fluticasone/Vilanterol (Breo Ellipta 100-25 Mcg Inh) 1 puff INH RQD [facility] Last Admin: 10/27/18 09:08 Dose: 1 puff Glucagon (Glucagen Diagnostic Kit) 0 mg IM STAT PRN; Protocol PRN Reason: Hypoglycemia Protocol Heparin Sodium (Porcine) (Heparin) 5,000 units SC Q8 [facility] Last Admin: 10/27/18 07:08 Dose: 5,000 units Hydromorphone HCl (Dilaudid) 0.5 mg IVP Q8H PRN PRN Reason: Pain, severe (8-10) Last Admin: 10/27/18 09:06 Dose: 0.5 mg Cefepime HCl 1 gm/ Sodium (Chloride) 100 mls @ 100 mls/hr IVPB DAILY [facility]; Protocol Last Admin: 10/27/18 09:07 Dose: 100 mls/hr Insulin Human Regular (Novolin R) 0 unit SC ACHS [facility]; Protocol Last Admin: 10/27/18 17:26 Dose: 3 units Methylprednisolone (Solu-Medrol) 20 mg IVP DAILY [facility] Metoprolol Tartrate (Lopressor) 12.5 mg PO BID [facility] Last Admin: 10/27/18 17:26 Dose: 12.5 mg Rosuvastatin Calcium (Crestor) 10 mg PO HS [facility] Last Admin: 10/26/18 23:01 Dose: 10 mg Verapamil HCl (Calan Tab) 40 mg PO BID [facility] Last Admin: 10/27/18 17:26 Dose: 40 mg - Labs Labs: 10/26/18 10:44 10/26/18 10:44 PT 13.4 SECONDS (9.7-12.2) H 10/23/18 23:58 INR 1.2 10/23/18 23:58 APTT 33 SECONDS (21-34) 10/23/18 23:58
--- NOTE | 2018-10-27 23:49 | CP.PCM.PN ---
Objective - Vital Signs/Intake and Output Vital Signs (last 24 hours): Temp Pulse Resp BP Pulse Ox 97.9 F 74 20 124/62 96 10/27/18 15:00 10/27/18 16:00 10/27/18 15:00 10/27/18 15:00 10/27/18 15:00 - Medications Medications: Current Medications Acetaminophen (Tylenol 325mg Tab) 650 mg PO Q6 PRN PRN Reason: Fever >100.4 F Last Admin: 10/26/18 10:26 Dose: 650 mg Acetylcysteine (Acetylcysteine 20%) 4 ml INH RQ6 [facility] Last Admin: 10/27/18 21:05 Dose: Not Given Aspirin (Aspirin Chewable) 81 mg PO DAILY [facility] Last Admin: 10/27/18 09:07 Dose: 81 mg Bisacodyl (Dulcolax) 10 mg NE ONCE PRN PRN Reason: Constipation Dextrose (Dextrose 50% Inj) 0 ml IV STAT PRN; Protocol PRN Reason: Hypoglycemia Protocol Dextrose (Glutose 15) 0 gm PO ONCE PRN; Protocol PRN Reason: Hypoglycemia Protocol Docusate Sodium (Colace) 100 mg PO TID [facility] Last Admin: 10/27/18 17:26 Dose: 100 mg Famotidine (Pepcid) 20 mg PO BID [facility] Last Admin: 10/27/18 17:26 Dose: 20 mg Fluticasone/Vilanterol (Breo Ellipta 100-25 Mcg Inh) 1 puff INH RQD [facility] Last Admin: 10/27/18 09:08 Dose: 1 puff Glucagon (Glucagen Diagnostic Kit) 0 mg IM STAT PRN; Protocol PRN Reason: Hypoglycemia Protocol Heparin Sodium (Porcine) (Heparin) 5,000 units SC Q8 [facility] Last Admin: 10/27/18 21:44 Dose: 5,000 units Hydromorphone HCl (Dilaudid) 0.5 mg IVP Q8H PRN PRN Reason: Pain, severe (8-10) Last Admin: 10/27/18 20:03 Dose: 0.5 mg Cefepime HCl 1 gm/ Sodium (Chloride) 100 mls @ 100 mls/hr IVPB DAILY [facility]; Protocol Last Admin: 10/27/18 09:07 Dose: 100 mls/hr Insulin Human Regular (Novolin R) 0 unit SC ACHS [facility]; Protocol Last Admin: 10/27/18 21:31 Dose: Not Given Methylprednisolone (Solu-Medrol) 20 mg IVP DAILY [facility] Metoprolol Tartrate (Lopressor) 12.5 mg PO BID [facility] Last Admin: 10/27/18 17:26 Dose: 12.5 mg Rosuvastatin Calcium (Crestor) 10 mg PO HS [facility] Last Admin: 10/27/18 21:44 Dose: 10 mg Verapamil HCl (Calan Tab) 40 mg PO BID [facility] Last Admin: 10/27/18 17:26 Dose: 40 mg - Labs Labs: 10/26/18 10:44 10/26/18 10:44 PT 13.4 SECONDS (9.7-12.2) H 10/23/18 23:58 INR 1.2 10/23/18 23:58 APTT 33 SECONDS (21-34) 10/23/18 23:58
[2018-10-28 00:57] VITALS: TEMP 98.2
[2018-10-28] MEDS: HYDROmorphone 0.5 mg/0.5 ml ISec IVP PRN (06:39)
[2018-10-28] MEDS: Fluticasone-Vilanterol 100/25mcg Diskus INH SCH (07:30)
[2018-10-28] MEDS: Acetylcysteine 20% Inhal Soln (4ml) INH SCH ×3 (07:30→19:20)
[2018-10-28] MEDS: (Novolin R) Insulin Human Regular 100 units/ml vial SC SCH ×2 (07:36→12:43)
[2018-10-28 07:38] VITALS: O2SAT 97
[2018-10-28 07:41] LABS: BASO % 0.2 % (0.0-2.0); EOS # 0.2 K/uL (0.0-0.7); EOS % 1.7 % (0.0-4.0); HEMOGLOBIN 10.9 g/dL (11.0-16.0); LYMPH # 2.3 K/uL (1.0-4.3); LYMPH % 18.9 % (20.0-40.0); MEAN CORPUSCULAR HEMOGLOBIN 35.2 pg (27.0-31.0); MEAN CORPUSCULAR HGB CONC 34.2 g/dL (33.0-37.0); MEAN PLATELET VOLUME 10.1 fL (7.2-11.7); MONO # 1.1 K/uL (0.0-0.8); MONO % 8.6 % (0.0-10.0); NEUT # 8.6 K/uL (1.8-7.0); NEUT % 70.6 % (50.0-75.0); NRBC % 0.1 % (0.0-2.0); RBC 3.1 Mil/uL (3.80-5.20); RED CELL DISTRIBUTION WIDTH 14.1 % (11.5-14.5); WHITE BLOOD COUNT 12.2 K/uL (4.8-10.8)
[2018-10-28 07:57] LABS: MEAN CELL VOLUME 99.9 fL (81.0-99.0)
[2018-10-28 08:02] LABS: ALB/GLOB RATIO 1.2 (1.0-2.1); ALBUMIN 3.3 g/dL (3.5-5.0); ALT/SGPT 45 U/L (9-52); AST/SGOT 27 U/L (14-36); BLOOD UREA NITROGEN 21 mg/dL (7-17); CALCIUM 8.3 mg/dl (8.6-10.4); GFR NON-AFRICAN AMERICAN > 60
[2018-10-28] MEDS ORDERED: MethylPREDNISolone 40 mg Vial IVP SCH (10:00)
[2018-10-28] MEDS: Cefepime 1 GM in Sodium Chloride 0.9% 100 ML IVPB SCH (10:03)
[2018-10-28 14:21] VITALS: BP 154/72; PULSE 59
--- NOTE | 2018-11-03 08:19 | CP.PCM.DIS ---
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 Routine Comment: Physician Instructions: Reason For Exam: PMH SMOKER, COPD Nursing Referral for Wound Care Routine Comment: Physician Instructions: Reason For Exam: S/P NEPHRECTOMY 10/15/18 17:27 Social Work Referral Routine Comment: may need home care or rehab Physician Instructions: Reason For Exam: may need home care or rehab Time Spent in preparation of Discharge (in minutes): 45 Hospital Course - Lab Results Lab Results: Micro Results 10/23/18 18:00 Sputum Gram Stain - Final 10/23/18 18:00 Sputum Sputum Culture - Final NORMAL ORAL RAGHAV 10/18/18 Unknown Nose MRSA Culture - Final MRSA NOT DETECTED 10/15/18 13:48 Nose MRSA Culture (Admit) - Final MRSA NOT DETECTED Most Recent Lab Values WBC 12.2 K/uL (4.8-10.8) H 10/28/18 07:18 RBC 3.10 Mil/uL (3.80-5.20) L 10/28/18 07:18 Hgb 10.9 g/dL (11.0-16.0) L 10/28/18 07:18 Hct 31.8 % (34.0-47.0) L 10/28/18 07:18 MCV 99.9 fL (81.0-99.0) H D 10/28/18 07:18 MCH 35.2 pg (27.0-31.0) H 10/28/18 07:18 MCHC 34.2 g/dL (33.0-37.0) 10/28/18 07:18 RDW 14.1 % (11.5-14.5) 10/28/18 07:18 Plt Count 240 K/uL (130-400) 10/28/18 07:18 MPV 10.1 fL (7.2-11.7) 10/28/18 07:18 Neut % (Auto) 70.6 % (50.0-75.0) 10/28/18 07:18 Lymph % (Auto) 18.9 % (20.0-40.0) L 10/28/18 07:18 [place] % (Auto) 8.6 % (0.0-10.0) 10/28/18 07:18 Eos % (Auto) 1.7 % (0.0-4.0) 10/28/18 07:18 Baso % (Auto) 0.2 % (0.0-2.0) 10/28/18 07:18 Neut # (Auto) 8.6 K/uL (1.8-7.0) H 10/28/18 07:18 Lymph # (Auto) 2.3 K/uL (1.0-4.3) 10/28/18 07:18 [place] # (Auto) 1.1 K/uL (0.0-0.8) H 10/28/18 07:18 Eos # (Auto) 0.2 K/uL (0.0-0.7) 10/28/18 07:18 Baso # (Auto) 0.0 K/uL (0.0-0.2) 10/28/18 07:18 Neutrophils % (Manual) 89 % (50-75) H 10/20/18 07:05 Band Neutrophils % 1 % (0-2) 10/19/18 07:49 Lymphocytes % (Manual) 4 % (20-40) L 10/20/18 07:05 Monocytes % (Manual) 7 % (0-10) 10/20/18 07:05 Eosinophils % (Manual) 1 % (0-4) 10/19/18 07:49 Basophils % (Manual) 1 % (0-2) 10/18/18 05:38 Toxic Granulation Present 10/19/18 07:49 Platelet Estimate Normal (NORMAL) 10/20/18 07:05 Large Platelets Present 10/19/18 07:49 Polychromasia Slight 10/20/18 07:05 Hypochromasia (manual) Slight 10/20/18 07:05 Basophilic Stippling Slight 10/18/18 05:38 Anisocytosis (manual) Slight 10/19/18 07:49 PT 13.4 SECONDS (9.7-12.2) H 10/23/18 23:58 INR 1.2 10/23/18 23:58 APTT 33 SECONDS (21-34) 10/23/18 23:58 Puncture Site [place] 10/17/18 05:14 pCO2 45 mm/Hg (35-45) 10/17/18 05:14 pO2 54 mm/Hg (80-100) L 10/17/18 05:14 HCO3 22.2 mmol/L (21-28) 10/17/18 05:14 ABG pH 7.32 (7.35-7.45) L 10/17/18 05:14 ABG Total CO2 24.6 mmol/L (22-28) 10/17/18 05:14 ABG O2 Saturation 90.0 % (95-98) L 10/17/18 05:14 ABG Base Excess -3.1 mmol/L (-2.0-3.0) L 10/17/18 05:14 Sai Test Na 10/17/18 05:14 ABG Potassium 3.7 mmol/L (3.6-5.2) 10/17/18 05:14 A-a O2 Difference 143.0 mm/Hg 10/16/18 08:56 Respiratory Index 2.5 10/16/18 08:56 Sodium 135.0 mmol/l (132-148) 10/17/18 05:14 Chloride 101.0 mmol/L (98-107) 10/17/18 05:14 Glucose 185 mg/dl (65-105) H 10/17/18 05:14 Lactate 2.4 mmol/L (0.7-2.1) H 10/17/18 05:14 Liter Flow 4.0 10/17/18 05:14 FiO2 35.0 % 10/16/18 08:56 Sodium 134 mmol/L (132-148) 10/28/18 07:19 Potassium 4.4 mmol/L (3.6-5.2) 10/28/18 07:19 Chloride 101 mmol/L (98-107) 10/28/18 07:19 Carbon Dioxide 29 mmol/L (22-30) 10/28/18 07:19 Anion Gap 9 (10-20) L 10/28/18 07:19 BUN 21 mg/dL (7-17) H 10/28/18 07:19 Creatinine 0.8 mg/dL (0.7-1.2) 10/28/18 07:19 Est GFR ( Amer) > 60 10/28/18 07:19 Est GFR (Non-Af Amer) > 60 10/28/18 07:19 POC Glucose (mg/dL) 242 mg/dL (65-110) H 10/28/18 13:17 Random Glucose 161 mg/dL (65-105) H D 10/28/18 07:19 Calcium 8.3 mg/dl (8.6-10.4) L 10/28/18 07:19 Phosphorus 2.7 mg/dL (2.5-4.5) 10/28/18 07: Magnesium 2.1 mg/dL (1.6-2.3) 10/28/18 07:19 Total Bilirubin 0.5 mg/dL (0.2-1.3) 10/28/18 07:19 AST 27 U/L (14-36) 10/28/18 07:19 ALT 45 U/L (9-52) 10/28/18 07:19 Alkaline Phosphatase 67 U/L (38-126) 10/28/18 07:19 Total Creatine Kinase 59 U/L (30-135) 10/23/18 14:08 CK-MB (Mass) 1.79 ng/mL (0.0-3.38) 10/23/18 14:08 Troponin I 0.1050 ng/mL (0.00-0.120) 10/23/18 14:08 Total Protein 6.0 g/dL (6.3-8.3) L 10/28/18 07:19 Albumin 3.3 g/dL (3.5-5.0) L 10/28/18 07:19 Globulin 2.6 gm/dL (2.2-3.9) 10/28/18 07:19 Albumin/Globulin Ratio 1.2 (1.0-2.1) 10/28/18 07:19 Arterial Blood Potassium 3.7 mmol/L (3.6-5.2) 10/17/18 05:14 Blood Type A POSITIVE 10/15/18 08:45 Antibody Screen Negative 10/15/18 08:45 - Hospital Course Hospital Course: HPI: 78-year-old female with a history of COPD, abdominal aortic aneurysm, aortic stenosis, diabetes and hypertension admitted to the intensive care unit following right total nephrectomy secondary to renal tumor. Patient was transferred to the ICU for close observation. Currently patient is on 5 L of nasal cannula, saturation is 90%, also receiving CHECKER DUMP GROUNDS for pain management. Patient is complaining of not able to sleep well, right-sided flank pain noted. Somewhat distressed at night. No cough noted. No chest pain. Past medical history: As noted above Patient in the past had right leg arterial blood clot, currently on Plavix also. Surgical history included AAA repair 9 years ago Cholecystectomy, hysterectomy Family history: Noncontributory Social history: Patient is a smoker since the age of 13, still continues to smoke. Denies any alcohol. Home medications Patient using nebulizer in the house Gabapentin, Pepcid, Crestor, metformin, Tradjenta, losartan hydrochlorothiazide Allergies no known drug allergy Review of system: Patient is postoperative complaining of pain in the right flank region. Also complaining of weakness. G[place]a catheter noted. No cough noted. Pain causing her some distress. Oxygen saturation is 90% On examination: Vital signs noted. Chest good air entry Regular [place] Postoperative abdomen. Drainage on the right side of the flank region noted. Extremities no pedal edema Patient labs reviewed Nonspecific. Chest x-ray showing evidence of left old healed fracture. Assessment and recommendation: 78-year-old female with a history of COPD, abdominal aortic aneurysm repair, and his aortic stenosis, diabetes and hypertension and a chronic smoker. Admitted with postoperative right nephrectomy for secondary to renal mass. We will closely monitor patient. Bronchodilators. Incentive spirometer. DVT GI prophylaxis. And will follow the patient Course in the hospital: Patient was initially admitted to the intensive care unit following the nephrectomy. Patient developed acute exacerbation of COPD while she was recovering. Later it was complicated with acute heart failure, and also acute non-ST elevation [place]. Cardiology evaluation was called in. I spoke to the sheet layer. Patient underwent angiogram, angiogram showing evidence of multivessel disease. Patient also has a severe aortic stenosis. Myself and the patient's family had a discussion with the patient. And also sheet layer. The patient agreed to have cardiac intervention. Patient will need possibly a stent. As well as possible aortic valve replacement. Patient is agreeing for the procedure. She will be transferred to the [facility]. She will be getting the possibly of stenting to the RCA likely. Later she will be getting the aortic valve replacement transaortic. Patient is clinically stable. Final diagnosis: Right-sided nephrectomy for renal cell tumor History of severe hypertension atherosclerosis severe smoker and severe COPD. AAA repair. Acute COPD exacerbation Acute non-ST elevation TN. Severe aortic stenosis. Medications reviewed and discussed with the patient. Likely stable. Discharge Exam - Head Exam Head Exam: ATRAUMATIC, NORMAL INSPECTION, NORMOCEPHALIC Discharge Plan - Follow Up Plan Condition: GOOD Disposition: Trans to Other Acute Care Hosp
--- NOTE | 2018-11-03 08:19 | CP.PCM.PN ---
Subjective - Date & Time of Evaluation Date of Evaluation: 10/24/18 Time of Evaluation: 08: - Subjective Subjective: Patient clinically stable. Still having cough. I spoke to the patient's family. Explained to the plan. She will be possibly discharged to the [facility] [place] for cardiac procedures. Clinically patient is stable. We will follow the patient. Objective - Vital Signs/Intake and Output Vital Signs (last 24 hours): Temp Pulse Resp BP Pulse Ox 98.2 F 59 L 20 154/72 H 97 10/28/18 07:00 10/28/18 11:21 10/28/18 07:00 10/28/18 11:21 10/28/18 07:00 - Labs Labs: 10/28/18 07:18 10/28/18 07:19 PT 13.4 SECONDS (9.7-12.2) H 10/23/18 23:58 INR 1.2 10/23/18 23:58 APTT 33 SECONDS (21-34) 10/23/18 23:58
== END 2018-10-28 14:00 | disposition short-term general hospital (02) | DRG 656 ==
LOC: C.9S 10-15 06:21 → C.9I 10-15 11:56 → C.6T 10-18 21:59 → C.5S 10-18 22:09 → C.6T 10-18 22:27
PROVIDERS: ADMIT Urology; ATTEND Internal Medicine
PROC: 0PB Upper Bones, Excision (ICD-10-PCS; 2018-10-15)
PROC: 0TT00ZZ Resection of Right Kidney, Open Approach (ICD-10-PCS; principal; 2018-10-15 07:30)
PROC: 4A023N7 Measurement of Cardiac Sampling and Pressure, Left Heart, Percutaneous Approach (ICD-10-PCS; 2018-10-24)
PROC: B2111ZZ Fluoroscopy of Multiple Coronary Arteries using Low Osmolar Contrast (ICD-10-PCS; 2018-10-24)
PROC: B2151ZZ Fluoroscopy of Left Heart using Low Osmolar Contrast (ICD-10-PCS; 2018-10-24)
DX: C64.1 Malignant neoplasm of right kidney, except renal pelvis (principal); I21.4 Non-ST elevation (NSTEMI) myocardial infarction; I50.33 Acute on chronic diastolic (congestive) heart failure; I13.0 Hypertensive heart and chronic kidney disease with heart failure and stage 1 through stage 4 chronic kidney disease, or unspecified chronic kidney disease; I47.2 Ventricular tachycardia; I97.131 Postprocedural heart failure following other surgery; J44.1 Chronic obstructive pulmonary disease with (acute) exacerbation; N18.9 Chronic kidney disease, unspecified; R09.02 Hypoxemia; I25.10 Atherosclerotic heart disease of native coronary artery without angina pectoris; E11.51 Type 2 diabetes mellitus with diabetic peripheral angiopathy without gangrene; E78.00 Pure hypercholesterolemia, unspecified; E11.22 Type 2 diabetes mellitus with diabetic chronic kidney disease; R31.9 Hematuria, unspecified; F17.210 Nicotine dependence, cigarettes, uncomplicated; Z79.4 Long term (current) use of insulin; I35.0 Nonrheumatic aortic (valve) stenosis; Y83.8 Other surgical procedures as the cause of abnormal reaction of the patient, or of later complication, without mention of misadventure at the time of the procedure

== ENCOUNTER 2019-02-06 09:44 | Outpatient (CLI) | payer OTHER | END 2019-02-06 09:45 | disposition home or self-care (01) | LOC: C.CTH 09:44 ==